=== PATIENT | female | born 1950 | race Caucasian/White ===

== ENCOUNTER → 2016-05-23 | Outpatient (CLI) | payer OTHER ==
[~2016-05-23] MED LIST: CIPR500T19 PO; HUMA100I3 SC; INSULANT SC; LISI-538 PO; ZOCO20TA PO
[2016-05-23 16:41] LABS: ALBUMIN 3.6 GM/DL (3.2-5.2); ALBUMIN/GLOBULIN RATIO 1.09 (1.00-1.93); ALKALINE PHOSPHATASE 188 U/L (45-117); ALT/SGPT 27 U/L (12-78); ANION GAP 12 MEQ/L (8-16); AST/SGOT 12 U/L (15-37); BILIRUBIN,TOTAL 0.2 MG/DL (0.2-1.0); BLOOD UREA NITROGEN 15 MG/DL (7-18); CALCIUM LEVEL 9.3 MG/DL (8.8-10.2); CARBON DIOXIDE LEVEL 25 MEQ/L (21-32); CHLORIDE LEVEL 102 MEQ/L (98-107); CHOLESTEROL LEVEL 183 MG/DL (<200); CREATININE FOR GFR 0.94 MG/DL (0.55-1.02); GLOMERULAR FILTRATION RATE > 60.0 (>45); POTASSIUM SERUM 4.3 MEQ/L (3.5-5.1); SODIUM LEVEL 139 MEQ/L (136-145); TOTAL PROTEIN 6.9 GM/DL (6.4-8.2); TRIGLYCERIDES LEVEL 465 MG/DL (<150)
[2016-05-23 16:44] LABS: GLUCOSE, FASTING 415 MG/DL (80-110)
[2016-05-23 19:25] LABS: BASO # 0.2 K/mm3 (0.0-0.2); BASO % 1.6 % (0.0-1.0); EOS # 0.3 K/mm3 (0.0-0.50); EOS % 2.3 % (0.0-3.0); LARGE UNSTAINED CELL # 0.1 K/mm3 (0.0-0.4); LARGE UNSTAINED CELL % 0.7 % (0.0-4.0); LYMPH % 16.8 % (24.0-44.0); MEAN CORPUSCULAR HEMOGLOBIN 29.4 pg (27.0-33.0); MEAN CORPUSCULAR HGB CONC 31.9 g/dl (32.0-36.5); MEAN CORPUSCULAR VOLUME 92.3 fl (80.0-96.0); MONO # 0.6 K/mm3 (0.0-0.8); MONO % 5.4 % (0.0-5.0); NEUTROPHILS # 8.2 K/mm3 (1.8-7.7); NEUTROPHILS % 73.1 % (36.0-66.0); PLATELET COUNT, AUTOMATED 263 k/mm3 (150-450); RED CELL DISTRIBUTION WIDTH 14.4 % (11.5-14.5); WHITE BLOOD COUNT 11.3 K/mm3 (4.0-10.0)
== END ==
LOC: M WUC 14:59
PROVIDERS: ATTEND Physician Assistant Medical
DX: E11.9 Type 2 diabetes mellitus without complications (principal)

== ENCOUNTER 2016-07-22 15:42 | Emergency (ER) | payer OTHER ==
[~2016-07-22] VITALS: Ht 149.9 cm; Wt 82.1 kg
[2016-07-22] MEDS ORDERED: LEVO25TA5 PO (15:57)
[2016-07-22] MEDS ORDERED: SERT50TA PO (15:57)
[2016-07-22] MEDS ORDERED: PERC5TAB6 PO (15:57)
[2016-07-22] MEDS ORDERED: LISI2.5T3 PO (15:57)
[2016-07-22] MEDS ORDERED: OXYB5TA PO (15:57)
[2016-07-22] MEDS ORDERED: METF500T PO (15:57)
[2016-07-22] MEDS ORDERED: TOUJ1.2I SC (15:57)
[2016-07-22 17:17] VITALS: BP 139/67
[2016-07-22] MEDS ORDERED: AZEL0.1S3 (17:19)
[2016-07-22] MEDS ORDERED: TESS100C PO (17:20)
== END 2016-07-22 17:31 | disposition home or self-care (01) ==
LOC: M ED 16:49
DX: B34.9 Viral infection, unspecified (principal); E11.65 Type 2 diabetes mellitus with hyperglycemia; Z79.4 Long term (current) use of insulin

== ENCOUNTER 2016-07-26 13:19 | Inpatient (IN) | payer OTHER ==
[~2016-07-26] VITALS: Ht 149.9 cm; Wt 79.6 kg
[~2016-07-26 13:19] MED LIST changes: +AZEL0.1S3; +LEVO25TA5 PO; +LISI2.5T3 PO; +METF500T PO; +OXYB5TA PO; +PERC5TAB6 PO; +SERT50TA PO; +TESS100C PO; +TOUJ1.2I SC
[2016-07-26] MEDS ORDERED: NS 1,000 ML IV ONE ×2 (13:45→17:00)
[2016-07-26] MEDS: IPRATROPIUM 0.5MG/ALBUTEROL 2.5MG INH SOL UD 3ML (DUONEB)(J7620) NEB SCH ×4 (14:22→21:02)
[2016-07-26 14:25] LABS: VENOUS BASE EXCESS -4.7 (-2.0-2.0); VENOUS O2 SATURATION 91.7 % (60.0-80.0); VENOUS PARTIAL PRESSURE CO2 46.6 mmHg (38.0-50.0); VENOUS PARTIAL PRESSURE O2 79.6 mmHg (30.0-50.0); VENOUS STANDARD HCO3 20.5 MEQ/L; VENOUS TOTAL CO2 23.5 MEQ/L (24.0-28.0)
[2016-07-26 14:27] LABS: BASO # 0.1 K/mm3 (0.0-0.2); BASO % 0.5 % (0.0-1.0); EOS # 0.1 K/mm3 (0.0-0.50); EOS % 0.4 % (0.0-3.0); LARGE UNSTAINED CELL # 0.5 K/mm3 (0.0-0.4); LYMPH % 1.8 % (24.0-44.0); MEAN CORPUSCULAR HEMOGLOBIN 29.1 pg (27.0-33.0); MEAN CORPUSCULAR HGB CONC 32.4 g/dl (32.0-36.5); MEAN CORPUSCULAR VOLUME 89.8 fl (80.0-96.0); MONO # 1.1 K/mm3 (0.0-0.8); NEUTROPHILS # 24.7 K/mm3 (1.8-7.7); NEUTROPHILS % 91.3 % (36.0-66.0); PLATELET COUNT, AUTOMATED 218 k/mm3 (150-450); RED CELL DISTRIBUTION WIDTH 13.7 % (11.5-14.5)
--- NOTE | 2016-07-26 14:47 | REP ---
Clinical: Diabetic ketoacidosis . Comparison: 09/11/2013 . Findings: The mediastinum and cardiac silhouette are stable and within normal limits for portable technique. The lung covington are clear without acute consolidation, effusion, or pneumothorax. Skeletal structures are intact. Impression: Normal portable chest x-ray Signed by Magdiel Brody MD 07/26/2016 02:39 P
[2016-07-26] MEDS ORDERED: HumuLIN R (REGULAR) INSULIN (NovoLIN R) **100U/ML** PER UNIT IV ONE (15:00)
[2016-07-26] MEDS ORDERED: cefTRIAXone SOD 1 GM in D5W MINI-BAG PLUS 50 ML IV ONE (15:30)
[2016-07-26 15:42] LABS: CALCIUM LEVEL 8.8 MG/DL (8.8-10.2); CREATININE FOR GFR 2.39 MG/DL (0.55-1.02); GLOMERULAR FILTRATION RATE 21.7 (>45); POTASSIUM SERUM 4.2 MEQ/L (3.5-5.1)
[2016-07-26] MEDS ORDERED: IPRATROPIUM 0.5MG/ALBUTEROL 2.5MG INH SOL UD 3ML (DUONEB)(J7620) NEB PRN (16:45)
[2016-07-26] MEDS ORDERED: GLUCAGON FOR INJ 1 MG VIAL (J1610) SC PRN (16:45)
[2016-07-26] MEDS ORDERED: ONDANSETRON 4MG/2ML VIAL (J2405) IV PRN (16:45)
[2016-07-26] MEDS ORDERED: DEXTROSE 50% 50 ML SYRINGE IV PRN (16:45)
[2016-07-26] MEDS ORDERED: ACETAMINOPHEN TAB 650MG DOSE (2X325MG) PO PRN (16:45)
[2016-07-26] MEDS ORDERED: HEPARIN SOD (PORCINE) 5000 UNITS/ML VIAL SC SCH (16:45)
[2016-07-26] MEDS ORDERED: GLUCOSE 4 GM CHEW TABLET PO PRN (16:45)
--- NOTE | 2016-07-26 17:17 | HPEPDOC ---
General Date of Admission Jul 26, 2016 at 16:36 Chief Complaint The patient is a 66-year-old female admitted with a reason for visit of Hyperglycemia. History of Present Illness 66-year-old female with past Meckel should hypertension, dyslipidemia, diabetes mellitus, bladder cancer, chronic urinary retention requiring straight catheterization, and ?COPD presented to the ER with a chief complaint of increasing shortness of breath and generalized fatigue over the last 3-4 days. The patient states that during this time she has had an increase in shortness of breath, associated with a cough productive of yellowish sputum, and dyspnea at rest. In addition, the patient states that she has felt increasing generalized weakness and fatigue. She notes that she has been taking all of her medications as previously prescribed. Upon checking her blood sugar level at home, the patient notes that he was noted to be in the 400s. She presents to the ER for further evaluation. She denies any lightheadedness, dizziness, chest pain, shortness of breath, palpitations, abdominal pain, or any nausea/vomiting/ diarrhea. In the ER, the patient was noted to have a blood sugar level of 458. In addition , she was also noted to have a white blood cell count of 27,000, and an acute kidney injury. A urinalysis was noted to be suggestive of an underlying urinary tract infection. The patient will be admitted under the service of the [facility] physician group for further evaluation and management. Home Medications Scheduled (Kj Delaney) 300 Unit/Ml Inj 44 UNIT SC DAILY (Reported) Azelastine Hydrochloride (Azelastine HCl) 137 Mcg/[place] Spr 2 SPRAY NA BID Benzonatate (Tessalon Perles) 100 Mg Cap 100 MG PO Q8H Insulin Human Lispro (Humalog) 100 Unit/Ml Inj 1 DOSE SC AC (Reported) Levothyroxine Sodium (Synthroid) 25 Mcg Tab 25 MCG PO DAILY (Reported) Lisinopril (Lisinopril) 2.5 Mg Tab 2.5 MG PO DAILY (Reported) Metformin Hydrochloride (Metformin HCl) 500 Mg Tab 500 MG PO BIDWM (Reported) Oxybutynin Chloride (Oxybutynin Chloride) 5 Mg Tab 5 MG PO BID (Reported) Oxycodone/Acetaminophen (Percocet 5-325 mg) 1 Tab Tab 1 TAB PO TID (Reported) Sertraline Hcl (Sertraline HCl) 50 Mg Tab 50 MG PO DAILY (Reported) Simvastatin (Zocor) 20 Mg Tab 20 MG PO QHS (Reported) Allergies Coded Allergies: No Known Allergies (Unverified , 09/16/13) Past Medical History Medical History As noted in HPI. Surgical History CHOLECYSTECTOMY/APPENDECTOMY 1990S BENIGN BREAST TUMOR REMOVAL 1974 TURBT 09/16/2013 CYSTOSCOPY 12/21/13 HYSTEROTOMY TOTAL 12/2014 Family History FATHER: 80 YRS, EMPHYSEMA, DM2 MOTHER: 80 YRS, ALZHEIMER Social History * Smoker: other (has smoked 1 pack per day for greater than 30 years) Alcohol: Denies Drugs: denies Unemployed, lives at home with her sister, and one cat and one dog. Does not require any assistance devices for ambulation Review of Symptoms Other systems 10 point review of systems negative unless otherwise specified in HPI. Physical Examination General Exam: Positive: Alert, Cooperative, No Acute Distress ENT Exam: Positive: Atraumatic, Mucous membr. moist/pink Neck Exam: Negative: JVD Chest Exam: Positive: Diminished, Rhonchi, Negative: Rales Heart Exam: Positive: Normal S1, Normal S2, Rate Normal Abdomen Exam: Positive: Soft, Negative: Tenderness Extremity Exam: Negative: Swelling, Tenderness Vital Signs As noted in the EMR. Laboratory Data Labs 24H Laboratory Tests 2 07/26/16 14:13: White Blood Count 27.0H, Red Blood Count 4.82, Hemoglobin 14.0, Hematocrit 43.3 , Mean Corpuscular Volume 89.8, Mean Corpuscular Hemoglobin 29.1, Mean Corpuscular Hemoglobin Concent 32.4, Red Cell Distribution Width 13.7, Platelet Count 218, Neutrophils (%) (Auto) 91.3H, Lymphocytes (%) (Auto) 1.8L, Monocytes (%) (Auto) 4.0, Eosinophils (%) (Auto) 0.4, Basophils (%) (Auto) 0.5, Neutrophils # (Auto) 24.7H, Lymphocytes # (Auto) 1.0L, Monocytes # (Auto) 1.1H, Eosinophils # (Auto) 0.1, Basophils # (Auto) 0.1, Blood Gas Bicarbonate Standard 20.5, Estimated Mean Plasma Glucose 246H, Hemoglobin A1c 10.2H, Lactic Acid Level 2.2*H, Large Unclassified Cells # 0.5H, Large Unclassified Cells % 2.0, Venous Blood Base Excess -4.7L, Venous Blood pH 7.293L, Venous Blood Partial Pressure CO2 46.6, Venous Blood Partial Pressure O2 79.6H, Venous Blood Total Carbon Dioxide 23.5L, Venous Blood HCO3 22.1L, Venous Blood Oxygen Saturation 91.7H 07/26/16 14:49: Anion Gap 15, B-Hydroxybutyrate 13.10H, Blood Urea Nitrogen 61H, Creatinine 2.39H, Sodium Level 130L, Potassium Level 4.2, Chloride Level 95L, Carbon Dioxide Level 20L, Calcium Level 8.8, Glomerular Filtration Rate 21.7L 07/26/16 14:50: Bedside Glucose (Misc Panel) 454H 07/26/16 15:33: Urine Amorphous Sediment SMALLH, Urine Appearance HAZY, Urine Color YELLOW, Urine pH 6.0, Urine Specific [place] 1.005, Urine Protein 1+H, Urine Glucose (UA ) 3+H, Urine Ketones NEGATIVE, Urine Urobilinogen 0.2, Urine Bilirubin NEGATIVE , Urine Leukocyte Esterase 3+H, Urine Bacteria (Auto) 3+H, Urine Blood 2+H, Urine Calcium Carbonate Cryst(Auto) , Urine Calcium Oxalate Cryst (Auto) , Urine Calcium Phosphate Saba (Auto) , Urine Cellular Casts , Urine Cystine Crystals , Urine Granular Casts (Auto) , Urine Hyaline Casts (Auto) 0, Urine Leucine Crystals , Urine Mucus (Auto) , Urine Nitrite POSITIVE, Urine Oval Fat Bodies (Auto) , Urine RBC (Auto) 4H, Urine Renal Epithelial Cells , Urine Sperm (Auto) , Urine Squamous Epithelial Cells 0, Urine Transitional Epithelial Cells , Urine Trichomonas (Auto) , Urine Triple Phosphate Cryst (Auto) , Urine Tyrosine Crystals , Urine Uric Acid Crystals (Auto) , Urine WBC (Auto) 56H, Urine Waxy Casts (Auto) , Urine Yeast-Like Cells (Auto) 07/26/16 16:23: Bedside Glucose (Misc Panel) 358H CBC/BMP Laboratory Tests 07/26/16 14:13 Red Blood Count 4.82, Mean Corpuscular Volume 89.8, Mean Corpuscular Hemoglobin 29.1, Mean Corpuscular Hemoglobin Concent 32.4, Red Cell Distribution Width 13.7 , Neutrophils (%) (Auto) 91.3 H, Lymphocytes (%) (Auto) 1.8 L, Monocytes (%) ( Auto) 4.0, Eosinophils (%) (Auto) 0.4, Basophils (%) (Auto) 0.5, Neutrophils # ( Auto) 24.7 H, Lymphocytes # (Auto) 1.0 L, Monocytes # (Auto) 1.1 H, Eosinophils # (Auto) 0.1, Basophils # (Auto) 0.1 07/26/16 14:49 Calcium Level 8.8 Microbiology Microbiology 07/26/16 Blood Culture, Received Pending 07/26/16 Blood Culture, Received Pending 07/26/16 Influenza Virus Type A Antigen - Final, Complete 07/26/16 Influenza Virus Type B Antigen - Final, Complete 07/26/16 Urine Culture, Received Pending Plan / VTE VTE Prophylaxis Ordered?: Yes Plan / Urinary Catheter Reason for insertion/continuin: Acute obstruct/retention Plan Plan History of diabetes mellitus, Elevated glucose levels secondary to underlying UTI Blood sugar level noted to be 458 in the ER Anion gap within normal limits, urine studies negative for ketones IV fluid hydration ordered We will continue the patient on insulin sliding scale, and administer her long- acting Levemir now We'll follow up with fingersticks to ensure that the patient's blood sugar levels remain under control Clear liquid diet for now-by mouth intake of fluids encouraged Acute kidney injury likely secondary to intravascular volume depletion from hyperglycemia Serum creatinine noted to be 2.39 (baseline around 1.0) Hold nephrotoxins IV fluid hydration Repeat BMP in the a.m. Shortness of breath likely, with hypoxia secondary to viral upper respiratory tract infection Chest x-ray with no acute findings Given the patient's history of tobacco abuse, I do wonder whether she has underlying COPD, and this is a presenting exacerbation Respiratory panel ordered At this time I will start her on nebulizer and inhaler therapy I would recommend a follow-up as an outpatient for PFTs I am reluctant to give the patient steroids at this time for a possible COPD exacerbation from viral URI given the patient's hyperglycemia We will down titrate the supplemental oxygen as tolerated (patient currently on 2 L of oxygen via nasal cannula) Urinary tract infection Urinalysis suggestive of UTI Blood cultures, urine culture ordered Patient started on Rocephin Will follow-up on culture results Leukocytosis, lactic acidosis Likely secondary to urinary tract infection, volume depletion Cultures pending, patient started on antibiotics, and IV fluid hydration We'll follow up on white blood cell count, and lactic acid level Dyslipidemia Continue statin History of bladder cancer in [address] Anderson as an outpatient History of chronic urinary retention requiring straight catheterization This may be the source of the patient's urinary tract infection Given the patient's aggressive IV fluid hydration and need to monitor output we will insert Choudhary catheter Hypothyroidism Continue levothyroxine DVT prophylaxis-heparin subcutaneous The patient will be admitted under the service of the [facility] physicians. SARAHI THAYER MD Jul 26, 2016 17:17
[2016-07-26] MEDS: HumaLOG INSULIN (NovoLOG) PER UNIT SC SCH ×2 (17:30→19:57)
[2016-07-26 19:15] VITALS: BP 145/71
[2016-07-26] MEDS: LEVEMIR (INSULIN DETEMIR) 1 UNITS/0.01ML SC SCH (19:58)
[2016-07-26] MEDS: NS 1,000 ML IV SCH (20:06)
--- NOTE | 2016-07-26 21:07 | ECGEPIP ---
Stationary ECG Study [facility] - ED Test Date: 2016-07-26 Pat Name: LYNDSEY GALVIN Department: Room: [place] [address] Gender: F Net Programmer Analyst: ct : 1950 Requested By: ADRIANE KAY PA-C. Order Number: [id number] Reading MD: Laquita Easley Measurements Intervals [place] Rate: 93 P: 70 WI: 144 QRS: 18 QRSD: 94 T: -2 QT: 319 QTc: 398 Interpretive Statements SINUS RHYTHM NSTTW ABNORMALITY INCREASED RATE 09/11/13 Electronically Signed On 07-26-2016 21:06:37 EDT by Laquita Easley
[2016-07-26] MEDS: AZELASTINE 137MCG NASAL SPY 30 ML (ASTELIN) SCH (23:00)
[2016-07-26] MEDS: HEPARIN SOD (PORCINE) 5000 UNITS/ML VIAL SC SCH (23:01)
[2016-07-26] MEDS: BENZONATATE 100 MG CAP PO SCH (23:02)
[2016-07-26] MEDS: SIMVASTATIN 20 MG TAB PO SCH (23:02)
[2016-07-26 23:15] VITALS: BP 142/74
[2016-07-27] MEDS: IPRATROPIUM 0.5MG/ALBUTEROL 2.5MG INH SOL UD 3ML (DUONEB)(J7620) NEB SCH ×6 (01:30→19:52)
[2016-07-27 04:00] VITALS: BP 137/92
[2016-07-27] MEDS: NS 1,000 ML IV SCH ×4 (04:02→20:10)
[2016-07-27] MEDS: PERCOCET 5MG/325MG TAB PO PRN ×2 (04:03→20:12)
[2016-07-27 05:30] LABS: MEAN CORPUSCULAR HEMOGLOBIN 29.1 pg (27.0-33.0); MEAN CORPUSCULAR HGB CONC 32.5 g/dl (32.0-36.5); MEAN CORPUSCULAR VOLUME 89.5 fl (80.0-96.0); RED CELL DISTRIBUTION WIDTH 13.8 % (11.5-14.5); WHITE BLOOD COUNT 29.8 K/mm3 (4.0-10.0)
[2016-07-27 05:43] LABS: ALBUMIN 1.6 GM/DL (3.2-5.2); ALBUMIN/GLOBULIN RATIO 0.36 (1.00-1.93); BILIRUBIN,TOTAL 0.9 MG/DL (0.2-1.0); CALCIUM LEVEL 8.2 MG/DL (8.8-10.2); CREATININE FOR GFR 2.53 MG/DL (0.55-1.02); GLOMERULAR FILTRATION RATE 20.4 (>45); MAGNESIUM LEVEL 2.5 MG/DL (1.8-2.4); POTASSIUM SERUM 3.5 MEQ/L (3.5-5.1); TOTAL PROTEIN 6.1 GM/DL (6.4-8.2)
[2016-07-27] MEDS: HEPARIN SOD (PORCINE) 5000 UNITS/ML VIAL SC SCH ×3 (07:04→20:16)
[2016-07-27] MEDS: LEVOTHYROXINE 0.025 MG TAB (25 MCG) PO SCH (07:04)
[2016-07-27] MEDS: BENZONATATE 100 MG CAP PO SCH ×3 (07:04→20:15)
[2016-07-27 08:00] VITALS: BP 157/75
[2016-07-27] MEDS: HumaLOG INSULIN (NovoLOG) PER UNIT SC SCH ×4 (08:31→21:00)
[2016-07-27] MEDS: cefTRIAXone SOD 1 GM in D5W MINI-BAG PLUS 50 ML IV SCH (08:31)
[2016-07-27] MEDS: SERTRALINE HCL 50 MG TAB PO SCH (08:32)
--- NOTE | 2016-07-27 09:03 | IPNPDOC ---
Subjective Date Seen The patient was seen on 07/27/16. Subjective Chief Complaint/HPI The patient is a 66-year-old female admitted with a reason for visit of Hyperglycemia. Events since last encounter Patient reports mid back pain, cough and fatigue with SOB. Constitutional: Denies: Chills, Fever Pulmonary: Reports: Cough, Dyspnea Cardiovascular: Denies: Chest Pain, Orthopnea, Palpitations Gastrointestinal: Denies: Abdominal Pain, Constipation, Diarrhea, Nausea, Vomiting Genitourinary: Reports: Other Symptoms (Has neurogenic bladder requiring straight cath - Nurse reports milky brown urine) Musculoskeletal: Reports: Back Pain Objective Physical Examination General Exam: Positive: Other (Awake but seems groggy, HAN) ENT Exam: Positive: Atraumatic, Mucous membr. moist/pink Neck Exam: Negative: JVD Chest Exam: Positive: Diminished, Wheezing (Diffuse wheezes BL), Negative: Rales Heart Exam: Positive: Normal S1, Normal S2, Rate Normal, Negative: Murmurs Abdomen Exam: Positive: Normal bowel sounds, Soft, Negative: Tenderness Extremity Exam: Positive: Swelling, Negative: Edema Assessment /Plan Problems (1) Acute renal failure Status: Acute Problem Text: continue IVF hydration Get Renal US (2) UTI (urinary tract infection) Status: Acute Problem Text: U/C pending continue Rocephin - (last UTI 02/2016 - grew Klebsiella Oxitica) (3) Acute bronchitis Status: Acute Problem Text: Oxygen saturations are ok on 2 liters NC May be able to start Prednisone if blood sugars remain down with Levemir and SSI. (4) Diabetes mellitus with hyperglycemia Status: Acute Response to Treatment: Improving Problem Text: continue Levemir and SSI Blood sugars down to 200s (5) Urinary retention Status: Chronic Problem Text: Normally straight caths May consider estrella cath for now until renal function improves and UTI clears (6) Tobacco abuse Status: Chronic Problem Text: smokes 1 ppd (7) H/O primary malignant neoplasm of urinary bladder Status: Acute Plan/VTE VTE Prophylaxis Ordered?: Yes (SQ heparin) Plan/Urinary Catheter Reason for insertion/continuin: Acute obstruct/retention VS, I&O, 24H, Fishbone Vital Signs/I&O Vital Signs Date Time Temp Pulse Resp B/P Pulse Ox O2 Delivery O2 Flow Rate FiO2 07/27/16 05:29 80 07/27/16 04:45 16 07/27/16 04:00 98.3 137/92 98 Nasal Cannula 2.0 I&O- Last 24 Hours up to 6 AM 07/27/16 06:00 Intake Total 2510 ml Output Total 1825 ml Balance 685 ml Laboratory Data 24H LABS Laboratory Tests 2 07/26/16 14:13: White Blood Count 27.0H, Red Blood Count 4.82, Hemoglobin 14.0, Hematocrit 43.3 , Mean Corpuscular Volume 89.8, Mean Corpuscular Hemoglobin 29.1, Mean Corpuscular Hemoglobin Concent 32.4, Red Cell Distribution Width 13.7, Platelet Count 218, Neutrophils (%) (Auto) 91.3H, Lymphocytes (%) (Auto) 1.8L, Monocytes (%) (Auto) 4.0, Eosinophils (%) (Auto) 0.4, Basophils (%) (Auto) 0.5, Neutrophils # (Auto) 24.7H, Lymphocytes # (Auto) 1.0L, Monocytes # (Auto) 1.1H, Eosinophils # (Auto) 0.1, Basophils # (Auto) 0.1, Blood Gas Bicarbonate Standard 20.5, Estimated Mean Plasma Glucose 246H, Hemoglobin A1c 10.2H, Lactic Acid Level 2.2*H, Large Unclassified Cells # 0.5H, Large Unclassified Cells % 2.0, Venous Blood Base Excess -4.7L, Venous Blood pH 7.293L, Venous Blood Partial Pressure CO2 46.6, Venous Blood Partial Pressure O2 79.6H, Venous Blood Total Carbon Dioxide 23.5L, Venous Blood HCO3 22.1L, Venous Blood Oxygen Saturation 91.7H 07/26/16 14:49: Anion Gap 15, B-Hydroxybutyrate 13.10H, Blood Urea Nitrogen 61H, Creatinine 2.39H, Sodium Level 130L, Potassium Level 4.2, Chloride Level 95L, Carbon Dioxide Level 20L, Calcium Level 8.8, Glomerular Filtration Rate 21.7L 07/26/16 14:50: Bedside Glucose (Misc Panel) 454H 07/26/16 15:33: Urine Amorphous Sediment SMALLH, Urine Appearance HAZY, Urine Color YELLOW, Urine pH 6.0, Urine Specific [place] 1.005, Urine Protein 1+H, Urine Glucose (UA ) 3+H, Urine Ketones NEGATIVE, Urine Urobilinogen 0.2, Urine Bilirubin NEGATIVE , Urine Leukocyte Esterase 3+H, Urine Bacteria (Auto) 3+H, Urine Blood 2+H, Urine Calcium Carbonate Cryst(Auto) , Urine Calcium Oxalate Cryst (Auto) , Urine Calcium Phosphate [place] (Auto) , Urine Cellular Casts , Urine Cystine Crystals , Urine Granular Casts (Auto) , Urine Hyaline Casts (Auto) 0, Urine Leucine Crystals , Urine Mucus (Auto) , Urine Nitrite POSITIVE, Urine Oval Fat Bodies (Auto) , Urine RBC (Auto) 4H, Urine Renal Epithelial Cells , Urine Sperm (Auto) , Urine Squamous Epithelial Cells 0, Urine Transitional Epithelial Cells , Urine Trichomonas (Auto) , Urine Triple Phosphate Cryst (Auto) , Urine Tyrosine Crystals , Urine Uric Acid Crystals (Auto) , Urine WBC (Auto) 56H, Urine Waxy Casts (Auto) , Urine Yeast-Like Cells (Auto) 07/26/16 16:23: Bedside Glucose (Misc Panel) 358H 07/26/16 17:23: Bedside Glucose (Misc Panel) 399H 07/26/16 19:06: Lactic Acid Followup at 4 Hours 1.4 07/26/16 19:33: Bedside Glucose (Misc Panel) 381H 07/27/16 05:17: Blood Urea Nitrogen 57H, Creatinine 2.53H, Sodium Level 136, Potassium Level 3.5 , Chloride Level 107, Carbon Dioxide Level 19L, Calcium Level 8.2L, Aspartate Amino Transf (AST/SGOT) 35, Alanine Aminotransferase (ALT/SGPT) 22, Alkaline Phosphatase 220H, Total Bilirubin 0.9, Total Protein 6.1L, Albumin 1.6L, Albumin /Globulin Ratio 0.36L, Anion Gap 10, Glomerular Filtration Rate 20.4L, Magnesium Level 2.5H 07/27/16 05:18: Lactic Acid Level 0.8 CBC/BMP Laboratory Tests 07/26/16 14:13 Red Blood Count 4.82, Mean Corpuscular Volume 89.8, Mean Corpuscular Hemoglobin 29.1, Mean Corpuscular Hemoglobin Concent 32.4, Red Cell Distribution Width 13.7 , Neutrophils (%) (Auto) 91.3 H, Lymphocytes (%) (Auto) 1.8 L, Monocytes (%) ( Auto) 4.0, Eosinophils (%) (Auto) 0.4, Basophils (%) (Auto) 0.5, Neutrophils # ( Auto) 24.7 H, Lymphocytes # (Auto) 1.0 L, Monocytes # (Auto) 1.1 H, Eosinophils # (Auto) 0.1, Basophils # (Auto) 0.1 07/26/16 14:49 Calcium Level 8.8 07/27/16 05:17 Red Blood Count 4.19, Mean Corpuscular Volume 89.5, Mean Corpuscular Hemoglobin 29.1, Mean Corpuscular Hemoglobin Concent 32.5, Red Cell Distribution Width 13.8 , Calcium Level 8.2 L, Aspartate Amino Transf (AST/SGOT) 35, Alanine Aminotransferase (ALT/SGPT) 22, Alkaline Phosphatase 220 H, Total Bilirubin 0.9 , Total Protein 6.1 L, Albumin 1.6 L Microbiology Microbiology 07/26/16 Blood Culture, Received Pending 07/26/16 Blood Culture, Received Pending 07/26/16 Influenza Virus Type A Antigen - Final, Complete 07/26/16 Influenza Virus Type B Antigen - Final, Complete 07/26/16 Urine Culture, Received Pending NEEL YANCEY PA-C Jul 27, 2016 09:03
[2016-07-27] MEDS: MIRALAX *UNIT DOSE* 17GM PACKET PO SCH (10:48)
[2016-07-27] MEDS: AZELASTINE 137MCG NASAL SPY 30 ML (ASTELIN) SCH ×2 (10:48→21:00)
[2016-07-27 12:00] VITALS: BP 129/69
--- NOTE | 2016-07-27 12:08 | REP ---
Clinical: Acute renal failure. Findings: Bilateral kidneys are normal in contour, size, echogenicity and reniform shape without hydronephrosis, nephrolithiasis, cystic or renal mass lesion. Right kidney measures 13.3 x 6.2 x 6.5 cm. Left kidney measures 13.0 x 7.2 x 7.2 cm. Bilateral renovascular calcifications suggested. Bladder is normal in appearance currently measuring 11.7 x 9.6 x 8.5 cm. Impression: Renovascular calcifications. No hydronephrosis. Signed by Magdiel Brody MD 07/27/2016 11:59 A
[2016-07-27 16:00] VITALS: BP 132/72
[2016-07-27 18:00] VITALS: BP 193/86
[2016-07-27] MEDS: SIMVASTATIN 20 MG TAB PO SCH (20:10)
[2016-07-27] MEDS: LEVEMIR (INSULIN DETEMIR) 1 UNITS/0.01ML SC SCH (20:11)
[2016-07-27 22:00] VITALS: BP 142/82
[2016-07-28] MEDS: PERCOCET 5MG/325MG TAB PO PRN ×4 (01:26→23:00)
[2016-07-28] MEDS: NS 1,000 ML IV SCH ×2 (01:26→07:54)
[2016-07-28] MEDS: IPRATROPIUM 0.5MG/ALBUTEROL 2.5MG INH SOL UD 3ML (DUONEB)(J7620) NEB SCH ×7 (04:00→23:37)
[2016-07-28] MEDS: LEVOTHYROXINE 0.025 MG TAB (25 MCG) PO SCH (05:34)
[2016-07-28] MEDS: HEPARIN SOD (PORCINE) 5000 UNITS/ML VIAL SC SCH ×3 (05:34→20:44)
[2016-07-28] MEDS: BENZONATATE 100 MG CAP PO SCH ×3 (05:34→20:43)
[2016-07-28 06:00] VITALS: BP 132/80
[2016-07-28 06:28] LABS: MEAN CORPUSCULAR HEMOGLOBIN 28.4 pg (27.0-33.0); MEAN CORPUSCULAR HGB CONC 32.3 g/dl (32.0-36.5); RED CELL DISTRIBUTION WIDTH 13.9 % (11.5-14.5)
[2016-07-28 06:33] LABS: WHITE BLOOD COUNT 31.3 K/mm3 (4.0-10.0)
[2016-07-28 06:41] LABS: ALBUMIN 1.5 GM/DL (3.2-5.2); ALBUMIN/GLOBULIN RATIO 0.34 (1.00-1.93); BILIRUBIN,TOTAL 0.6 MG/DL (0.2-1.0); CALCIUM LEVEL 7.7 MG/DL (8.8-10.2); CREATININE FOR GFR 3.03 MG/DL (0.55-1.02); GLOMERULAR FILTRATION RATE 16.5 (>45); POTASSIUM SERUM 3.8 MEQ/L (3.5-5.1); TOTAL PROTEIN 5.9 GM/DL (6.4-8.2)
[2016-07-28] MEDS: cefTRIAXone SOD 1 GM in D5W MINI-BAG PLUS 50 ML IV SCH (07:52)
[2016-07-28] MEDS: MIRALAX *UNIT DOSE* 17GM PACKET PO SCH (07:53)
[2016-07-28] MEDS: SERTRALINE HCL 50 MG TAB PO SCH (07:53)
[2016-07-28] MEDS: HumaLOG INSULIN (NovoLOG) PER UNIT SC SCH ×4 (07:54→20:45)
[2016-07-28] MEDS: AZELASTINE 137MCG NASAL SPY 30 ML (ASTELIN) SCH ×2 (07:54→20:46)
[2016-07-28] MEDS: KCL 20MEQ IN 0.45NS 1000ML 1,000 ML IV SCH ×2 (10:45→20:43)
--- NOTE | 2016-07-28 10:59 | IPN ---
DATE: 07/28/2016 Yessica feels much better. Asking to have her Choudhary catheter taken out. She is showing improvement of her severe hyperglycemia, but her renal functions are deteriorating further. She was admitted with severe hyperglycemia and acute renal failure. Her creatine is up to 3, blood sugars have come under good control. She would like her catheter out. Says she self catheterizes at home. We did an ultrasound that showed no hydronephrosis. She has a prominent tremor, but she says she has had that "since I was child." This was worse on admission when she felt more ill. She says she is back to her baseline, mild tremor now. Blood pressure (BP) 132/80, pulse 79, respiratory rate 20, 97% oxygen saturation. GENERAL APPEARANCE: She is resting comfortable in no distress. No jugular venous distension (JVD). Lungs are clear. Heart: Regular rhythm. Abdomen: Soft, nontender, no peripheral edema. Urine is clear, was quite cloudy earlier in the admission. LABORATORY: Sodium 143, potassium 3.8, BUN 54, creatine 3, glucose 108, white count 31,000, hemoglobin 11.8, platelets 290. IMPRESSION: 1. Acute renal failure. Renal function continues to decline. This is related to her severe hyperglycemia and urinary tract infection. Will follow this daily. Adjust dose of medicines, baseline renal function. Avoid nephrotoxic agents. If renal function is worse tomorrow, will consult nephrology. 2. E. Coli urinary tract infection (UTI). She has an E. Coli urinary tract infection. She was given a dose of Rocephin on admission. I thought this was being ordered daily, but was just given one dose in the emergency room. This has been ordered daily starting today. Sensitivities were obtained and is araujo sensitive E. Coli. 3. Coronavirus respiratory infection. This was isolated from a respiratory panel. She is not having any shortness of breath or wheezing. Interestingly, her twin sister who is also an inpatient at [facility] has isolated the same coronovirus, as well as the same araujo-sensitive E. Coli found from her urine. 4. Tremor. This is at its baseline. 5. Diabetes with hyperglycemia. Blood sugars improved. She is on Levemir and sliding scale. She is on an enforced diet. I might have to reduce her Levemir for blood sugars getting lower. 6. History of urinary retention. She would like to resume her intermittent self-catheterization. There is no evidence of hydronephrosis. So, will allow her to continue to do this. 7. Tobacco abuse. Support smoking cessation has been discussed.
[2016-07-28 14:00] VITALS: BP 134/80
[2016-07-28] MEDS: SIMVASTATIN 20 MG TAB PO SCH (20:43)
[2016-07-28] MEDS: LEVEMIR (INSULIN DETEMIR) 1 UNITS/0.01ML SC SCH (20:45)
[2016-07-28 22:00] VITALS: BP 155/81
[2016-07-29] MEDS: IPRATROPIUM 0.5MG/ALBUTEROL 2.5MG INH SOL UD 3ML (DUONEB)(J7620) NEB SCH ×6 (03:17→23:56)
[2016-07-29] MEDS: PERCOCET 5MG/325MG TAB PO PRN ×4 (04:05→22:47)
[2016-07-29] MEDS: HEPARIN SOD (PORCINE) 5000 UNITS/ML VIAL SC SCH ×3 (05:20→20:58)
[2016-07-29] MEDS: LEVOTHYROXINE 0.025 MG TAB (25 MCG) PO SCH (05:20)
[2016-07-29] MEDS: BENZONATATE 100 MG CAP PO SCH ×3 (05:20→20:57)
[2016-07-29] MEDS: KCL 20MEQ IN 0.45NS 1000ML 1,000 ML IV SCH ×3 (05:22→22:46)
[2016-07-29 06:00] VITALS: BP 155/72
[2016-07-29 06:09] LABS: MEAN CORPUSCULAR HEMOGLOBIN 28.2 pg (27.0-33.0); MEAN CORPUSCULAR HGB CONC 30.6 g/dl (32.0-36.5); MEAN CORPUSCULAR VOLUME 92.4 fl (80.0-96.0); RED CELL DISTRIBUTION WIDTH 14.5 % (11.5-14.5); WHITE BLOOD COUNT 27.1 K/mm3 (4.0-10.0)
[2016-07-29 06:28] LABS: ALBUMIN 1.6 GM/DL (3.2-5.2); ALBUMIN/GLOBULIN RATIO 0.35 (1.00-1.93); BILIRUBIN,TOTAL 0.5 MG/DL (0.2-1.0); CALCIUM LEVEL 7.9 MG/DL (8.8-10.2); CREATININE FOR GFR 3.11 MG/DL (0.55-1.02); POTASSIUM SERUM 3.9 MEQ/L (3.5-5.1); TOTAL PROTEIN 6.2 GM/DL (6.4-8.2)
[2016-07-29] MEDS: HumaLOG INSULIN (NovoLOG) PER UNIT SC SCH ×4 (07:30→20:59)
[2016-07-29] MEDS: MIRALAX *UNIT DOSE* 17GM PACKET PO SCH (09:00)
[2016-07-29] MEDS: SERTRALINE HCL 50 MG TAB PO SCH (09:49)
[2016-07-29] MEDS: cefTRIAXone SOD 1 GM in D5W MINI-BAG PLUS 50 ML IV SCH (09:51)
[2016-07-29] MEDS: AZELASTINE 137MCG NASAL SPY 30 ML (ASTELIN) SCH ×2 (09:52→20:59)
--- NOTE | 2016-07-29 13:35 | IPN ---
DATE: 07/29/2016 Yessica is seen on [facility]. She feels well. She has sepsis from urinary tract infection and acute renal failure probably secondary to that as well. She also has coronavirus with exacerbation of chronic obstructive pulmonary disease (COPD). She has chronic urinary retention and gets intermittent clean catheterization which apparently is performed by her sister at home. She was admitted with significant hyperglycemia which has improved as well. Blood sugars are fairly labile, ranging from 85-446 yesterday. PHYSICAL EXAMINATION: VITAL SIGNS: Blood pressure 155/72, pulse 50, respiratory rate 20, 98% oxygen saturation. GENERAL APPEARANCE: Resting comfortably in no distress. HEENT: Unremarkable. No jugular venous distention (JVD). LUNGS: Entirely clear. HEART: Regular rate and rhythm. ABDOMEN: Soft, nontender. No costovertebral angle (CVA) tenderness. EXTREMITIES: Trace peripheral edema. LABORATORY DATA: Blood sugars 85-446, sodium 142, potassium 3.9, BUN 52, creatinine is 3.1, glucose 84. White count is down to 27,000. IMPRESSION AND PLAN: 1. Acute renal failure. Nephrology has been consulted. We communicated about the case. We already ordered a renal ultrasound and there is no sign of obstruction. Probably secondary to severe hyperglycemia and urinary tract infection. 2. Escherichia (E) coli urinary tract infection (UTI), on IV Rocephin. She has received this daily since admission. 3. Coronavirus respiratory infection. No shortness of breath. Tolerating this well. 4. Tremor, at her baseline. 5. Hyperglycemia. She is on Levemir, sliding scale and forced diabetic diet. I was going to reduce the Levemir but she is hyperglycemic at times and she has not had any lawrence hypoglycemia either. 6. History of urinary retention with intermittent clean catheterization as an outpatient. We will continue this while here. 7. Tobacco abuse. The importance of smoking cessation again discussed.
[2016-07-29] MEDS: SIMVASTATIN 20 MG TAB PO SCH (20:58)
[2016-07-29] MEDS: LEVEMIR (INSULIN DETEMIR) 1 UNITS/0.01ML SC SCH (20:59)
[2016-07-29 22:00] VITALS: BP 172/100
[2016-07-30 02:00] VITALS: BP 162/85
[2016-07-30] MEDS: IPRATROPIUM 0.5MG/ALBUTEROL 2.5MG INH SOL UD 3ML (DUONEB)(J7620) NEB SCH ×5 (04:00→21:18)
[2016-07-30 06:00] VITALS: BP 155/72
[2016-07-30] MEDS: HEPARIN SOD (PORCINE) 5000 UNITS/ML VIAL SC SCH ×3 (06:07→21:33)
[2016-07-30] MEDS: LEVOTHYROXINE 0.025 MG TAB (25 MCG) PO SCH (06:07)
[2016-07-30] MEDS: BENZONATATE 100 MG CAP PO SCH ×3 (06:08→21:33)
[2016-07-30 06:54] LABS: MEAN CORPUSCULAR HEMOGLOBIN 29.3 pg (27.0-33.0); MEAN CORPUSCULAR HGB CONC 32.4 g/dl (32.0-36.5); MEAN CORPUSCULAR VOLUME 90.4 fl (80.0-96.0); RED CELL DISTRIBUTION WIDTH 14.4 % (11.5-14.5); WHITE BLOOD COUNT 24.7 K/mm3 (4.0-10.0)
[2016-07-30 07:01] LABS: ALBUMIN 1.9 GM/DL (3.2-5.2); ALBUMIN/GLOBULIN RATIO 0.37 (1.00-1.93); BILIRUBIN,TOTAL 0.7 MG/DL (0.2-1.0); CALCIUM LEVEL 8.5 MG/DL (8.8-10.2); CREATININE FOR GFR 2.84 MG/DL (0.55-1.02); GLOMERULAR FILTRATION RATE 17.8 (>45); POTASSIUM SERUM 4.1 MEQ/L (3.5-5.1)
[2016-07-30] MEDS: HumaLOG INSULIN (NovoLOG) PER UNIT SC SCH ×4 (07:30→21:34)
[2016-07-30] MEDS: cefTRIAXone SOD 1 GM in D5W MINI-BAG PLUS 50 ML IV SCH (08:09)
[2016-07-30] MEDS: SERTRALINE HCL 50 MG TAB PO SCH (09:00)
[2016-07-30] MEDS: MIRALAX *UNIT DOSE* 17GM PACKET PO SCH (09:00)
[2016-07-30] MEDS: AZELASTINE 137MCG NASAL SPY 30 ML (ASTELIN) SCH ×2 (09:00→21:35)
[2016-07-30] MEDS: PERCOCET 5MG/325MG TAB PO PRN ×2 (09:05→21:33)
--- NOTE | 2016-07-30 10:08 | REP ---
Clinical: Shortness of breath. CHF . Comparison: 07/26/2016 . Technique: PA and lateral. Findings: The mediastinum and cardiac silhouette are normal. The lung covington are clear and without acute consolidation, effusion, or pneumothorax. The skeletal structures are intact and normal. Impression: 1. No acute cardiopulmonary process. Signed by Magdiel Brody MD 07/30/2016 09:59 A
--- NOTE | 2016-07-30 10:33 | CR ---
DATE OF CONSULTATION: 07/30/2016 REASON FOR CONSULTATION: Acute renal failure. HISTORY OF PRESENT ILLNESS: Ms. Munson is a 66-year-old female with known history of diabetes, bladder cancer, status post transurethral resection of bladder tumor (TURBT), hypertension and chronic urinary retention requiring catheterizations. She was admitted to [facility] with severe hyperglycemia and has been treated for possible urinary tract infection (UTI) and flu symptoms. She did test positive for coronavirus and urine culture was positive for E-coli. She has leukocytosis with white cell count as high as 31.3. BUN went up to 52 and creatinine 3.11 yesterday due to which nephrology consultation was requested. The patient is seen this morning. She has been hydrated with IV fluids since admission due to decreased oral intake. In addition, she has been receiving IV antibiotics. PAST MEDICAL AND SURGICAL HISTORY: Significant for: 1. History of hypertension. 2. Dyslipidemia. 3. History of insulin-requiring diabetes. 4. Hypothyroidism. 5. Chronic urinary retention requiring intermittent catheterization at home. 6. History of chronic obstructive pulmonary disease (COPD). PAST SURGICAL HISTORY: Significant for: 1. Cholecystectomy. 2. Appendectomy. 3. Benign breast tumor removal. 4. Transurethral resection of bladder tumor (TURBT). 5. Cystoscopies. 6. Hysterotomy. ALLERGIES: She has no known drug allergies. MEDICATIONS: Home medications include: - insulin per sliding scale - levothyroxine 25 mcg daily - lisinopril 2.5 mg daily - metformin 500 mg twice daily - oxybutynin 5 mg twice daily - Percocet one tablet three times daily - sertraline 50 mg daily - simvastatin 20 mg at bedtime She also took Tessalon Perles for cough and she takes Toujeo 44 units subcu daily. FAMILY HISTORY: Father at age 80 due to emphysema and diabetes. Mother also at age 80 due to Alzheimer's. PERSONAL AND SOCIAL HISTORY: The patient is an active smoker about one pack a day for last 30 years. She denies any alcohol or recreational drug use. REVIEW OF SYSTEMS: Ears, nose and throat are unremarkable. She denies any fever or chills. Cardiovascular system negative for dyspnea or chest pain. Respiratory system is significant for questionable chronic obstructive pulmonary disease (COPD) with active smoking. She denies any hemoptysis or pleuritic type of chest pain. Gastrointestinal (GI) system is significant for decreased oral intake for several days. However, it has now improved. She denies any nausea, vomiting or diarrhea. Genitourinary () system is negative for dysuria or hematuria at present. She reports frequency of urination and wants to get off the IV fluid. Endocrine system is significant for hypothyroidism and diabetes. Hematological system is negative for any excessive bleeding or bruising. Musculoskeletal system is negative for leg edema or arthralgias. She denies using any non-steroidal anti-inflammatory drugs (NSAID)s. Skin is negative for rash or ulcers. Neurological system is negative for seizures or stroke. PHYSICAL EXAMINATION: The patient is awake and alert and without any acute distress. Temperature 99.4 degrees Fahrenheit, heart 76 per minute and respiratory rate 18 per minute. Blood pressure 155/72 mmHg and oxygen saturation 99% on room air. Head: Is atraumatic. Pupils equal and reactive to light and sclera is anicteric. Ears, nose and throat are unremarkable. Mucous membranes are moist healthy. Neck is supple and without jugular venous distention (JVD) or thyroid enlargement. Heart: Sounds are regular and lungs clear to auscultation bilaterally. Abdomen: Soft and nontender. Bowel sounds normal. Extremities have no cyanosis or clubbing. Skin has no rash or ulcers. Neurologically she is awake, alert and oriented times three. LABORATORY DATA: Her initial labs on the time of admission showed a BUN 61 and creatinine 2.39. Glucose was 458. Lactic acid 2.2. Hemoglobin A1c was 10.2. On 07/29, BUN up to 52 and creatinine 3.11. Glucose down to 84, sodium 142 and potassium 3.9. Today her BUN is 48 and creatinine 2.84. CO2 17 and chloride 111. Sodium 141, potassium 4.1. Urinalysis showed 56 WBCs and 3+ leukocyte esterase with 3+ bacteria. Urine culture is positive for E-coli. PROBLEMS: 1. Acute renal failure. The patient is known to have a baseline serum creatinine of 0.9. Acute kidney injury is most likely related to a combination of decreased oral intake and sepsis with urinary tract infection (UTI). She seems quite well-hydrated now and her oral intake has improved. She does not wish to continue IV fluid anymore. We will stop the IV fluid and encourage oral intake of liquids. Kidney function is likely to improve over next few days. The patient also had severe hyperglycemia and time of admission which was probably related to acute infection and has improved. 2. Metabolic acidosis. She does have mild metabolic acidosis with pH of 7.29 on admission. As her kidney function has started to improve, her acidosis is likely to improve without any intervention. I will hold off on sodium bicarbonate. 3. Urinary tract infection (UTI). The patient remains on ceftriaxone which is appropriate. She is afebrile and improving. Thank you for involving me in the care of Ms. Munson. I will follow her along with you.
--- NOTE | 2016-07-30 12:53 | IPNPDOC ---
Subjective Date Seen The patient was seen on 07/30/16. Subjective Chief Complaint/HPI The patient is a 66-year-old female admitted with a reason for visit of Hyperglycemia. Events since last encounter Patient denies SOB and cough is minimal. She has no complaints today. Constitutional: Denies: Chills, Fever, Malaise ENT: Denies: Head Aches Skin: Denies: Rash Pulmonary: Denies: Cough, Dyspnea Cardiovascular: Denies: Chest Pain, Orthopnea, Palpitations Gastrointestinal: Denies: Abdominal Pain, Diarrhea, Nausea, Vomiting Genitourinary: Reports: Retention (chronic), Denies: Dysuria, Frequency Neurological: Denies: Weakness Psych: Reports: Mood Normal Objective Physical Examination General Exam: Positive: Alert, Cooperative, No Acute Distress ENT Exam: Positive: Atraumatic, Mucous membr. moist/pink Neck Exam: Negative: JVD Chest Exam: Positive: Clear to auscultation, Normal air movement, Negative: Rales, Rhonchi, Wheezing Heart Exam: Positive: Normal S1, Normal S2, Rate Normal, Negative: Murmurs Abdomen Exam: Positive: Normal bowel sounds, Soft, Negative: Tenderness Extremity Exam: Negative: Edema Assessment /Plan Problems (1) Acute renal failure Status: Acute Problem Text: Likely due to hyperglycemia and UTI. Cr and GFR slowly improving. Renal ultrasound does not show any hydronephrosis. Nephro following - appreciate their input. Nephro stopped IVF this morning. PO fluid intake encouraged. Continue to treat hyperglycemia and UTI as below. (2) UTI (urinary tract infection) Status: Acute Problem Text: Urine culture positive for >100,000 E. Coli, pansensitive. Continue ceftriaxone. (3) Acute bronchitis Status: Acute Problem Text: Positive for coronavirus. Oxygen saturations are >97% on room air. (4) Diabetes mellitus with hyperglycemia Status: Acute Response to Treatment: Improving Problem Text: Initial hyperglycemia was likely due to acute infection. Continue Levemir and SSI. Blood sugars better controlled in 150s - 200s; no hypoglycemia on current regimen. (5) Urinary retention Status: Chronic Problem Text: Normally straight caths at home - this has been continued here. (6) Tobacco abuse Status: Chronic Problem Text: smokes 1 ppd Plan/VTE VTE Prophylaxis Ordered?: Yes (SQ heparin) Plan/Urinary Catheter Reason for insertion/continuin: Acute obstruct/retention VS, I&O, 24H, Fishbone Vital Signs/I&O Vital Signs Date Time Temp Pulse Resp B/P Pulse Ox O2 Delivery O2 Flow Rate FiO2 07/30/16 10:35 16 07/30/16 06:00 99.4 76 155/72 99 Room Air 07/28/16 20:40 1.0 I&O- Last 24 Hours up to 6 AM 07/30/16 05:59 Intake Total 3840 ml Output Total 5150 ml Balance -1310 ml Laboratory Data 24H LABS Laboratory Tests 2 07/29/16 13:48: Bedside Glucose (Misc Panel) 170H 07/29/16 17:42: Bedside Glucose (Misc Panel) 156H 07/29/16 20:16: Bedside Glucose (Misc Panel) 136H 07/30/16 06:30: Blood Urea Nitrogen 48H, Creatinine 2.84H, Sodium Level 141, Potassium Level 4.1 , Chloride Level 111H, Carbon Dioxide Level 17L, Calcium Level 8.5L, Aspartate Amino Transf (AST/SGOT) 58H, Alanine Aminotransferase (ALT/SGPT) 36, Alkaline Phosphatase 347H, Total Bilirubin 0.7, Total Protein 7.0, Albumin 1.9L, Albumin/ Globulin Ratio 0.37L, Anion Gap 13, Glomerular Filtration Rate 17.8L 07/30/16 12:28: Bedside Glucose (Misc Panel) 247H CBC/BMP Laboratory Tests 07/30/16 06:30 Calcium Level 8.5 L, Aspartate Amino Transf (AST/SGOT) 58 H, Alanine Aminotransferase (ALT/SGPT) 36, Alkaline Phosphatase 347 H, Total Bilirubin 0.7 , Total Protein 7.0, Albumin 1.9 L, Red Blood Count 4.56, Mean Corpuscular Volume 90.4, Mean Corpuscular Hemoglobin 29.3, Mean Corpuscular Hemoglobin Concent 32.4, Red Cell Distribution Width 14.4 Microbiology Microbiology 07/26/16 Blood Culture - Preliminary, Resulted No Growth after 72 hours. All specime... 07/26/16 Blood Culture - Preliminary, Resulted No Growth after 72 hours. All specime... 07/26/16 Influenza Virus Type A Antigen - Final, Complete 07/26/16 Influenza Virus Type B Antigen - Final, Complete 07/26/16 Respiratory Virus Panel (PCR) (IVAN) - Final, Complete Coronavirus Oc43 07/26/16 Urine Culture - Final, Complete Escherichia Coli LIU BARRY MD Jul 30, 2016 12:53
[2016-07-30 14:00] VITALS: BP 132/74
[2016-07-30] MEDS: SIMVASTATIN 20 MG TAB PO SCH (21:33)
[2016-07-30] MEDS: LEVEMIR (INSULIN DETEMIR) 1 UNITS/0.01ML SC SCH (21:35)
[2016-07-30 22:00] VITALS: BP 166/81
[2016-07-31] MEDS: IPRATROPIUM 0.5MG/ALBUTEROL 2.5MG INH SOL UD 3ML (DUONEB)(J7620) NEB SCH ×6 (03:24→23:29)
[2016-07-31] MEDS: BENZONATATE 100 MG CAP PO SCH ×3 (05:15→21:51)
[2016-07-31] MEDS: LEVOTHYROXINE 0.025 MG TAB (25 MCG) PO SCH (05:15)
[2016-07-31] MEDS: HEPARIN SOD (PORCINE) 5000 UNITS/ML VIAL SC SCH ×3 (05:15→21:51)
[2016-07-31] MEDS: PERCOCET 5MG/325MG TAB PO PRN ×3 (05:16→18:05)
[2016-07-31 06:00] VITALS: BP 160/80
[2016-07-31 06:49] LABS: MEAN CORPUSCULAR HEMOGLOBIN 28.6 pg (27.0-33.0); MEAN CORPUSCULAR VOLUME 89.2 fl (80.0-96.0); RED CELL DISTRIBUTION WIDTH 14.6 % (11.5-14.5)
[2016-07-31 07:09] LABS: ALBUMIN 1.9 GM/DL (3.2-5.2); ALBUMIN/GLOBULIN RATIO 0.38 (1.00-1.93); BILIRUBIN,TOTAL 0.4 MG/DL (0.2-1.0); CALCIUM LEVEL 8.2 MG/DL (8.8-10.2); CREATININE FOR GFR 2.5 MG/DL (0.55-1.02); GLOMERULAR FILTRATION RATE 20.6 (>45); POTASSIUM SERUM 4.4 MEQ/L (3.5-5.1); TOTAL PROTEIN 6.9 GM/DL (6.4-8.2)
[2016-07-31] MEDS: AZELASTINE 137MCG NASAL SPY 30 ML (ASTELIN) SCH ×2 (08:12→21:51)
[2016-07-31] MEDS: MIRALAX *UNIT DOSE* 17GM PACKET PO SCH (08:12)
[2016-07-31] MEDS: SERTRALINE HCL 50 MG TAB PO SCH (08:12)
[2016-07-31] MEDS: HumaLOG INSULIN (NovoLOG) PER UNIT SC SCH ×2 (08:12→12:32)
[2016-07-31] MEDS: cefTRIAXone SOD 1 GM in D5W MINI-BAG PLUS 50 ML IV SCH ×2 (08:12→08:57)
--- NOTE | 2016-07-31 12:59 | IPN ---
DATE OF SERVICE: 07/31/2016 Yessica feels well. She is ready to go home tomorrow. She does not want to go home today. She is having some constipation. Her acute renal failure has improved. Renal function gets better on a daily basis. Nephrology has been following. She has an Escherichia (E.) coli urinary tract infection (UTI). Currently, on ceftriaxone. Has coronavirus leading to some shortness of breath, which has resolved, as well. Diabetes is under good control. She uses Toujeo insulin at home. Daily insulin dose currently higher than she was receiving here. Getting scant coverage on the sliding scale, so I am going to be discontinuing that. PHYSICAL EXAMINATION: VITAL SIGNS: Stable. LUNGS: Clear. HEART: Regular rate and rhythm. ABDOMEN: Soft, nontender. No peripheral edema. LABORATORIES: Creatinine is down to 2.5. White count is 23,000. IMPRESSION: 1. Acute renal failure, resolving. Intravenous (IV) fluids have been stopped. 2. Urinary tract infection. Discharge on by mouth Keflex tomorrow. 3. Diabetes. Put her on home dose of Toujeo on discharge tomorrow. 4. Constipation. Bowel care ordered. 5. Urinary tract infection possibly secondary to intermittent straight catheterization at home due to urinary retention. 6. Secondary sepsis present on admission from urinary tract infection. Edited 07/31/2016 @ [address] [facility]
[2016-07-31] MEDS: CEPHALEXIN 500 MG CAP PO SCH ×2 (13:11→21:51)
[2016-07-31 14:00] VITALS: BP 160/80
--- NOTE | 2016-07-31 16:37 | IPN ---
DATE: 07/31/2016 SUBJECTIVE: This is a 66-year-old female who was seen and examined at the bedside. Overnight no report of acute events. This morning, denies any chest pain, shortness of breath, fevers, chills. Has been making good urine output. OBJECTIVE: VITALS: Blood pressure 160/80, heart rate 83, temperature 98.1, respiratory rate 18, pulse oximetry 96% on room air. INTAKE/OUTPUT: Last 24 hours: 3220 mL and 5600 mL, net negative 2.4 liters. Weight is not documented. GENERAL: Patient is sitting in bed, comfortable, in no acute distress. She is alert, awake, oriented times three, pleasant, cooperative. HEENT: Normocephalic, atraumatic. Moist oral mucosa. NECK: Supple, trachea midline. No jugular venous distention (JVD). HEART: Regular rate and rhythm. Normal S1, S2. LUNGS: Clear to auscultation bilaterally. ABDOMEN: Soft, obese but nontender, nondistended, bowel sounds present. EXTREMITIES: No pedal edema. Pedal pulses present bilaterally. NEUROLOGIC: She is alert, awake, oriented times three. LABORATORY DATA: WBC 23, hemoglobin 12.7, hematocrit 39.5, platelets 403. Sodium 137, potassium 4.4, chloride 107, carbon dioxide 20, BUN 49, creatinine 2.5, glucose 277, calcium 8.2, total bilirubin 0.4. AST 19, ALT 27, alkaline phosphatase 365. Albumin 1.9. A urine culture from 07/26/2016 showed Escherichia (E) coli, which is pansensitive. Respiratory syncytial virus (RSV) positive for Coronavirus. IMPRESSION AND PLAN: Ms. Munson is a 66-year-old female with a history of diabetes, bladder cancer, status post transurethral resection of bladder tumor, hypertension, chronic urinary retention requiring catheterization, who is currently being treated for sepsis from urinary tract infection. 1. Acute renal failure. Her baseline creatinine is 0.9. Renal function is improving today compared to yesterday. Renal failure was likely secondary to sepsis from urinary tract infection (UTI) and dehydration. She is no longer on intravenous (IV) fluid, and we recommend continue increase oral intake. 2. Metabolic acidosis. This appears to be improving now that her renal function is improving. No sodium bicarbonate needed at this time. 3. Hypertension. She takes lisinopril 2.5 mg at home. Case discussed with primary team and recommend that if her renal function continues to be improving, can consider restarting lisinopril tomorrow. 4. Urinary tract infection. Currently on Rocephin by primary team. If she continues to do well, she might be able to be discharged tomorrow from a renal standpoint. My preceptor for this patient encounter was Dr. Ian Turcios. The preceptor was physically present in the building during the encounter and was fully available. As needed, all aspects of the patient interview, examination, medical decision making process, and medical care plan development were reviewed and approved by the preceptor. The preceptor is aware and concurs with the plan as stated in the body of this note and will attest to such by his/her cosignature. MARY
[2016-07-31] MEDS: SIMVASTATIN 20 MG TAB PO SCH (21:51)
[2016-07-31] MEDS: LEVEMIR (INSULIN DETEMIR) 1 UNITS/0.01ML SC SCH (21:52)
[2016-07-31 22:00] VITALS: BP 165/80
[2016-08-01] MEDS: PERCOCET 5MG/325MG TAB PO PRN (00:39)
[2016-08-01] MEDS: IPRATROPIUM 0.5MG/ALBUTEROL 2.5MG INH SOL UD 3ML (DUONEB)(J7620) NEB SCH ×3 (01:11→12:00)
[2016-08-01 06:00] VITALS: BP 162/60
[2016-08-01] MEDS: HEPARIN SOD (PORCINE) 5000 UNITS/ML VIAL SC SCH ×2 (06:16→13:50)
[2016-08-01] MEDS: LEVOTHYROXINE 0.025 MG TAB (25 MCG) PO SCH (06:16)
[2016-08-01] MEDS: BENZONATATE 100 MG CAP PO SCH ×2 (06:16→13:50)
[2016-08-01 07:22] LABS: MEAN CORPUSCULAR HEMOGLOBIN 29.1 pg (27.0-33.0); MEAN CORPUSCULAR HGB CONC 32.5 g/dl (32.0-36.5); MEAN CORPUSCULAR VOLUME 89.4 fl (80.0-96.0); RED CELL DISTRIBUTION WIDTH 14.7 % (11.5-14.5); WHITE BLOOD COUNT 19.8 K/mm3 (4.0-10.0)
[2016-08-01 07:45] LABS: ALBUMIN 1.8 GM/DL (3.2-5.2); ALBUMIN/GLOBULIN RATIO 0.41 (1.00-1.93); BILIRUBIN,TOTAL 0.3 MG/DL (0.2-1.0); CALCIUM LEVEL 8.2 MG/DL (8.8-10.2); CREATININE FOR GFR 2.24 MG/DL (0.55-1.02); GLOMERULAR FILTRATION RATE 23.4 (>45); POTASSIUM SERUM 4.3 MEQ/L (3.5-5.1); TOTAL PROTEIN 6.2 GM/DL (6.4-8.2)
[2016-08-01] MEDS: CEPHALEXIN 500 MG CAP PO SCH (08:40)
[2016-08-01] MEDS: MIRALAX *UNIT DOSE* 17GM PACKET PO SCH (08:41)
[2016-08-01] MEDS: AZELASTINE 137MCG NASAL SPY 30 ML (ASTELIN) SCH (08:41)
[2016-08-01] MEDS: SERTRALINE HCL 50 MG TAB PO SCH (08:41)
[2016-08-01] MEDS ORDERED: amLODIPine 5 MG TAB PO SCH (09:00)
--- NOTE | 2016-08-01 11:13 | IPN ---
DATE: 08/01/2016 SUBJECTIVE: This is a 66-year-old female who was seen and examined at the bedside. Overnight no reported acute events. She was changed from IV antibiotics to by mouth yesterday. Denies any problems today and is anxious to go home. No chest pain, shortness of breath, leg swelling, nausea or vomiting. She wanted to know if there is anyway that she can be off her Choudhary catheter. OBJECTIVE: VITAL SIGNS: Blood pressure 162/60, heart rate 72, temperature 99.1, respiration rate 17. Pulse ox 98% on room air. Intake and output over the last 24 [id number] and [id number] for a net negative of 2.7 liters. GENERAL: The patient is sitting in bed comfortable. No acute distress. She is alert, awake, oriented times three, pleasant, cooperative. HEENT: Normocephalic, atraumatic, extraocular movement intact. NECK: Supple, trachea midline. CHEST: Symmetric chest rise, no accessory muscle use. HEART: Regular rate and rhythm, S1, S2 normal. LUNGS: Clear to auscultation bilaterally. ABDOMEN: Soft, nontender, nondistended, bowel sounds, present, no guarding, no rebound. EXTREMITY: Pedal pulses present bilaterally, no pedal edema. NEUROLOGIC: She is without focal deficits. PSYCHIATRIC: Pleasant, cooperative, normal affect. LABORATORY DATA: WBC 19.8 improved from yesterday at 23, hemoglobin 11.2 and hematocrit 36.1, platelet 330. Sodium 141, potassium 4.3, chloride 110, carbon dioxide 26, BUN 37, creatinine 2.24 improved from yesterday 2.5, glucose 271, calcium 8.2. Total bilirubin 0.3, AST 12, ALT 17, alkaline phosphatase 273, albumin 1.8, corrected calcium is 10. IMPRESSION AND PLAN: Ms Munson is a 66-year-old female with history of diabetes, bladder cancer, status post transurethral resection of the bladder tumor, hypertension, chronic urinary retention requiring catheterization admitted for urinary tract infection and acute renal failure secondary to underlying infection. 1. Acute renal failure: Renal functioning continues to be improving each day, however, she is not back at her baseline yet. Would therefore, recommend holding home dose JOY inhibitor for now. She will require followup with Dr. Turcios in 2 weeks. 2. Hypertension: The patient takes lisinopril 2.5 mg at home. We have started her on Norvasc 5 mg by mouth daily. Recommend that the patient be continued with Norvasc daily and continue holding lisinopril for now due to her renal function. 3. Urinary tract infection: She is now on Keflex 500 twice a day, previously on Rocephin. Today will day 5 with antibiotics. 4. Metabolic acidosis: Secondary to renal dysfunction. This is now resolved. From a renal standpoint, the patient may be discharged home with Norvasc added to her home regimen and lisinopril on hold for now. My preceptor for this patient encounter was Dr. Ian Turcios. The preceptor was physically present in the building during the encounter and was fully available. As needed, all aspects of the patient interview, examination, medical decision making process, and medical care plan development were reviewed and approved by the preceptor. The preceptor is aware and concurs with the plan as stated in the body of this note and will attest to such by his/her cosignature. MARY
[2016-08-01] MEDS ORDERED: CEPH500C PO (15:42)
--- NOTE | 2016-08-01 15:55 | DSES ---
DATE OF ADMISSION: 07/26/2016 DATE OF DISCHARGE: 08/01/2016 PRINCIPAL DIAGNOSIS: Acute renal failure. SECONDARY DIAGNOSES: 1. Escherichia coli urinary tract infection. 2. Coronavirus respiratory infection. 3. Hypertensive heart disease. 4. Lactic acidosis. 5. History of neurogenic bladder, requiring self-catheterization. 6. Type 2 diabetes. 7. Sepsis present on admission from urinary tract infection. HISTORY: Yessica Munson was admitted July 26 with severe hyperglycemia, found to have suggestion of both urinary tract infection (UTI) and respiratory infection. For details see history and physical from admission. HOSPITAL COURSE: Patient was admitted to a medical bed. She ended up growing Escherichia (E) coli from her urine. Coronavirus likely due from respiratory secretions. She was treated with Rocephin on admission and then changed to Keflex. Her renal failure responded to intravenous (IV) fluid. She was seen by nephrology. Renal function improved on a daily basis. She was hyperglycemic on admission. Blood sugars varied from borderline hypoglycemic with blood sugar of 79 to hyperglycemic with blood sugars over 100. This morning it was 270. SIGNIFICANT LABORATORIES: Today, sodium 141, potassium 4.3, BUN 37, creatinine 2.2, glucose 271. White count 19,000; it has come down every day this week. Hemoglobin 11.7, platelets 330. Urine grew out E. coli sensitive to cephalosporins. Respiratory panel grew out Coronavirus, coincidentally with the same pathogens, both urinary and respiratory, that her twin sister, with whom she lives, also was admitted for. DISPOSITION: She is discharged home in improved and stable condition. She will followup with Sonali Hopkins, who is her primary care provider. Activity as tolerated. Consistent-carbohydrate diet. MEDICATIONS ON DISCHARGE: - Astelin spray as needed - Tessalon Perles three times a day as needed - Tujeo 44 units daily - Humalog Lispro per sliding scale at home - levothyroxine 25 mcg daily - oxybutynin 5 mg twice a day - sertraline 50 mg daily - simvastatin 20 mg daily Metformin and lisinopril have been discontinued. She will be on Keflex 500 mg twice a day for 7 more days. This has been sent to her pharmacy.
== END 2016-08-01 16:54 | disposition home or self-care (01) | DRG 720 ==
LOC: M ED 14:41 → M ED INP 16:36 → M ICU 19:13 → M MS5PR 07-27 16:10
PROVIDERS: ADMIT Internal Medicine; ATTEND Family Medicine
DX: A41.9 Sepsis, unspecified organism (principal); N17.9 Acute kidney failure, unspecified; E87.2 Acidosis; I11.9 Hypertensive heart disease without heart failure; N39.0 Urinary tract infection, site not specified; E11.65 Type 2 diabetes mellitus with hyperglycemia; C67.9 Malignant neoplasm of bladder, unspecified; B96.29 Other Escherichia coli [E. coli] as the cause of diseases classified elsewhere; N31.9 Neuromuscular dysfunction of bladder, unspecified; B97.29 Other coronavirus as the cause of diseases classified elsewhere; Z79.899 Other long term (current) drug therapy; Z79.4 Long term (current) use of insulin; F17.200 Nicotine dependence, unspecified, uncomplicated; E78.5 Hyperlipidemia, unspecified; K59.00 Constipation, unspecified

== ENCOUNTER → 2016-08-09 | Outpatient (REF) | payer OTHER ==
[~2016-08-09] MED LIST changes: +CEPH500C PO
== END ==
LOC: M SFHCADAM 14:54
PROVIDERS: ATTEND Physician Assistant Medical
DX: N17.9 Acute kidney failure, unspecified (principal)

== ENCOUNTER → 2016-08-21 | Outpatient (REF) | payer OTHER ==
[2016-08-21 20:28] LABS: MEAN CORPUSCULAR HEMOGLOBIN 27.8 pg (27.0-33.0); MEAN CORPUSCULAR HGB CONC 31.2 g/dl (32.0-36.5); MEAN CORPUSCULAR VOLUME 88.9 fl (80.0-96.0); RED CELL DISTRIBUTION WIDTH 14.5 % (11.5-14.5); WHITE BLOOD COUNT 11.2 K/mm3 (4.0-10.0)
== END ==
LOC: M SMT 09:25
PROVIDERS: ATTEND Urology
DX: C67.9 Malignant neoplasm of bladder, unspecified (principal)

== ENCOUNTER → 2016-09-07 | Outpatient (CLI) | payer OTHER ==
[2016-09-07 17:46] LABS: MEAN CORPUSCULAR HEMOGLOBIN 28.4 pg (27.0-33.0); MEAN CORPUSCULAR HGB CONC 31.8 g/dl (32.0-36.5); MEAN CORPUSCULAR VOLUME 89.3 fl (80.0-96.0); RED CELL DISTRIBUTION WIDTH 15.3 % (11.5-14.5); WHITE BLOOD COUNT 10.6 K/mm3 (4.0-10.0)
[2016-09-07 18:19] LABS: CALCIUM LEVEL 8.7 MG/DL (8.8-10.2); CREATININE FOR GFR 1.53 MG/DL (0.55-1.02); GLOMERULAR FILTRATION RATE 36.4 (>45)
[2016-09-07 18:21] LABS: POTASSIUM SERUM 5.3 MEQ/L (3.5-5.1)
== END ==
LOC: M SMT 13:46
PROVIDERS: ATTEND Urology
DX: C67.9 Malignant neoplasm of bladder, unspecified (principal)

== ENCOUNTER → 2016-09-25 | Outpatient (CLI) | payer OTHER ==
--- NOTE | 2016-09-25 16:41 | REP ---
Lumbar spine series: Five views: History: Right-sided sciatica. Low back pain. Findings: There are multiple surgical clips in right upper quadrant and right lower quadrant. Some vascular calcification is observed. Lumbar vertebral body heights are preserved. There is degenerative disc disease at L4-5 with a grade 1 4 mm L4-5 spondylolisthesis due to degenerative disc and osteoarthritic facet disease at L4-5. No spondylolysis is seen. There is advanced facet disease at L5-S1 and moderate osteoarthritic facet changes are noted at L3-4 bilaterally. Mild discogenic spurring is seen at L2-3. Impression: Degenerative disc and advanced osteoarthritic facet disease most pronounced at L4-5 where there is a 4 mm degenerative spondylolisthesis. Signed by Dann Gustafson MD 09/25/2016 05:10 P
== END ==
LOC: M ADAMS 15:52
PROVIDERS: ATTEND Physician Assistant Medical
DX: M54.41 Lumbago with sciatica, right side (principal)

== ENCOUNTER → 2016-09-25 | Outpatient (REF) | payer OTHER ==
[2016-09-25 20:02] LABS: ALBUMIN 3.2 GM/DL (3.2-5.2); ALBUMIN/GLOBULIN RATIO 0.86 (1.00-1.93); BILIRUBIN,TOTAL 0.1 MG/DL (0.2-1.0); CALCIUM LEVEL 8.8 MG/DL (8.8-10.2); CREATININE FOR GFR 1.55 MG/DL (0.55-1.02); GLOMERULAR FILTRATION RATE 35.8 (>45); POTASSIUM SERUM 4.8 MEQ/L (3.5-5.1); TOTAL PROTEIN 6.9 GM/DL (6.4-8.2)
== END ==
LOC: M SFHCADAM 15:29
PROVIDERS: ATTEND Physician Assistant Medical
DX: E11.9 Type 2 diabetes mellitus without complications (principal); E55.9 Vitamin D deficiency, unspecified; E03.9 Hypothyroidism, unspecified

== ENCOUNTER → 2016-12-11 | Outpatient (REF) | payer OTHER ==
[~2016-12-11] MED LIST changes: -METF500T PO; +METF500T13 PO; -OXYB5TA PO; +OXYB5TAB10 PO; +PERC5TAB12 PO; -PERC5TAB6 PO
[2016-12-11 20:32] LABS: ALBUMIN 3.5 GM/DL (3.2-5.2); ALBUMIN/GLOBULIN RATIO 0.97 (1.00-1.93); BILIRUBIN,TOTAL 0.2 MG/DL (0.2-1.0); CALCIUM LEVEL 9.4 MG/DL (8.8-10.2); CREATININE FOR GFR 1.38 MG/DL (0.55-1.02); FREE T4 1.28 NG/DL (0.76-1.46); TOTAL PROTEIN 7.1 GM/DL (6.4-8.2)
[2016-12-11 20:33] LABS: POTASSIUM SERUM 5.3 MEQ/L (3.5-5.1)
[2016-12-11 20:36] LABS: MEAN CORPUSCULAR HEMOGLOBIN 28.3 pg (27.0-33.0); MEAN CORPUSCULAR VOLUME 85.7 fl (80.0-96.0); RED CELL DISTRIBUTION WIDTH 15.4 % (11.5-14.5); WHITE BLOOD COUNT 11.5 K/mm3 (4.0-10.0)
== END ==
LOC: M SFHCADAM 13:10
PROVIDERS: ATTEND Urology
DX: E11.9 Type 2 diabetes mellitus without complications (principal); F11.90 Opioid use, unspecified, uncomplicated; E03.9 Hypothyroidism, unspecified

== ENCOUNTER → 2017-03-22 | Outpatient (REF) | payer MEDICARE, OTHER ==
[2017-03-22 19:54] LABS: BASO # 0.1 10^3/uL (0.0-0.2); BASO % 0.5 % (0.0-1.0); EOS # 0.2 10^3/uL (0.0-0.50); IMMATURE GRANULOCYTE % 0.4 % (0-0); LYMPH # 1.1 10^3/uL (1.5-4.5); LYMPH % 10.7 % (24.0-44.0); MEAN CORPUSCULAR HGB CONC 32.1 g/dl (32.0-36.5); MEAN CORPUSCULAR VOLUME 87.4 fl (80.0-96.0); MONO # 0.7 10^3/uL (0.0-0.8); MONO % 6.7 % (0.0-5.0); NEUTROPHILS # 8.4 10^3/uL (1.8-7.7); NEUTROPHILS % 79.7 % (36.0-66.0); PLATELET COUNT, AUTOMATED 282 10^3/uL (150-450); RED CELL DISTRIBUTION WIDTH 14.6 % (11.5-14.5); WHITE BLOOD COUNT 10.5 10^3/uL (4.0-10.0)
[2017-03-22 20:15] LABS: ALBUMIN 3.7 GM/DL (3.2-5.2); ALBUMIN/GLOBULIN RATIO 1.06 (1.00-1.93); BILIRUBIN,TOTAL 0.3 MG/DL (0.2-1.0); CALCIUM LEVEL 9.3 MG/DL (8.8-10.2); CREATININE FOR GFR 1.36 MG/DL (0.55-1.02); GLOMERULAR FILTRATION RATE 41.5 (>45); TOTAL PROTEIN 7.2 GM/DL (6.4-8.2)
[2017-03-22 20:21] LABS: POTASSIUM SERUM 5.7 MEQ/L (3.5-5.1)
== END ==
LOC: M SFHCADAM 13:36
PROVIDERS: ATTEND Physician Assistant Medical
DX: E11.9 Type 2 diabetes mellitus without complications (principal); E03.9 Hypothyroidism, unspecified; E78.1 Pure hyperglyceridemia; G89.29 Other chronic pain; G47.00 Insomnia, unspecified; Z23 Encounter for immunization
CPT/HCPCS: 80053; 80061; 83036; 84443; 85025; 90662; 90670; G0008; G0009; G0463

== ENCOUNTER → 2017-04-22 | Outpatient (CLI) | payer MEDICARE, OTHER ==
[2017-04-22 14:51] LABS: MEAN CORPUSCULAR HEMOGLOBIN 28.5 pg (27.0-33.0); MEAN CORPUSCULAR HGB CONC 32.1 g/dl (32.0-36.5); MEAN CORPUSCULAR VOLUME 88.9 fl (80.0-96.0); PLATELET COUNT, AUTOMATED 245 10^3/uL (150-450); RED CELL DISTRIBUTION WIDTH 14.5 % (11.5-14.5); WHITE BLOOD COUNT 9.3 10^3/uL (4.0-10.0)
[2017-04-22 15:25] LABS: ALBUMIN 3.7 GM/DL (3.2-5.2); ALBUMIN/GLOBULIN RATIO 1.06 (1.00-1.93); BILIRUBIN,TOTAL 0.2 MG/DL (0.2-1.0); CALCIUM LEVEL 9.4 MG/DL (8.8-10.2); CREATININE FOR GFR 1.33 MG/DL (0.55-1.02); GLOMERULAR FILTRATION RATE 42.6 (>45); TOTAL PROTEIN 7.2 GM/DL (6.4-8.2)
[2017-04-22 15:28] LABS: POTASSIUM SERUM 5.4 MEQ/L (3.5-5.1)
== END ==
LOC: M WUC 13:43
PROVIDERS: ATTEND Urology
DX: C67.9 Malignant neoplasm of bladder, unspecified (principal); Z79.899 Other long term (current) drug therapy

== ENCOUNTER → 2017-04-23 | Outpatient (CLI) | payer MEDICARE, OTHER ==
[2017-04-23 13:29] LABS: ALBUMIN 3.9 GM/DL (3.2-5.2); ALBUMIN/GLOBULIN RATIO 1.18 (1.00-1.93); BASO # 0.1 10^3/uL (0.0-0.2); BASO % 0.7 % (0.0-1.0); BILIRUBIN,TOTAL 0.3 MG/DL (0.2-1.0); CALCIUM LEVEL 9.1 MG/DL (8.8-10.2); CREATININE FOR GFR 1.33 MG/DL (0.55-1.02); EOS # 0.2 10^3/uL (0.0-0.50); EOS % 2.2 % (0.0-3.0); GLOMERULAR FILTRATION RATE 42.6 (>45); IMMATURE GRANULOCYTE % 0.6 % (0-0); LYMPH # 1.7 10^3/uL (1.5-4.5); LYMPH % 15.7 % (24.0-44.0); MEAN CORPUSCULAR HEMOGLOBIN 28.6 pg (27.0-33.0); MEAN CORPUSCULAR HGB CONC 32.3 g/dl (32.0-36.5); MEAN CORPUSCULAR VOLUME 88.7 fl (80.0-96.0); MONO # 1.1 10^3/uL (0.0-0.8); MONO % 10.1 % (0.0-5.0); NEUTROPHILS # 7.6 10^3/uL (1.8-7.7); NEUTROPHILS % 70.7 % (36.0-66.0); PLATELET COUNT, AUTOMATED 267 10^3/uL (150-450); RED CELL DISTRIBUTION WIDTH 14.4 % (11.5-14.5); TOTAL PROTEIN 7.2 GM/DL (6.4-8.2); WHITE BLOOD COUNT 10.7 10^3/uL (4.0-10.0)
== END ==
LOC: M WUC 10:03
PROVIDERS: ATTEND Physician Assistant Medical
DX: E11.9 Type 2 diabetes mellitus without complications (principal); G89.29 Other chronic pain; G47.00 Insomnia, unspecified

== ENCOUNTER → 2017-05-14 | Outpatient (REF) | payer MEDICARE, OTHER ==
[2017-05-14 14:53] LABS: HEMOGLOBIN 13.9 g/dl (12.0-16.0); MEAN CORPUSCULAR HEMOGLOBIN 28.2 pg (27.0-33.0); MEAN CORPUSCULAR HGB CONC 31.6 g/dl (32.0-36.5); MEAN CORPUSCULAR VOLUME 89.2 fl (80.0-96.0); PLATELET COUNT, AUTOMATED 200 10^3/uL (150-450); RED BLOOD COUNT 4.93 10^6/uL (4.00-5.40); RED CELL DISTRIBUTION WIDTH 14.4 % (11.5-14.5); WHITE BLOOD COUNT 9.7 10^3/uL (4.0-10.0)
[2017-05-14 15:14] LABS: ALBUMIN 3.6 GM/DL (3.2-5.2); ALKALINE PHOSPHATASE 162 U/L (45-117); ALT/SGPT 25 U/L (12-78); ANION GAP 6 MEQ/L (8-16); AST/SGOT 19 U/L (7-37); BILIRUBIN,TOTAL 0.1 MG/DL (0.2-1.0); BLOOD UREA NITROGEN 23 MG/DL (7-18); CALCIUM LEVEL 9.2 MG/DL (8.8-10.2); CARBON DIOXIDE LEVEL 27 MEQ/L (21-32); CHLORIDE LEVEL 107 MEQ/L (98-107); CREATININE FOR GFR 1.37 MG/DL (0.55-1.02); GLOMERULAR FILTRATION RATE 41.2 (>45); GLUCOSE, FASTING 209 MG/DL (80-110); SODIUM LEVEL 140 MEQ/L (136-145); TOTAL PROTEIN 6.6 GM/DL (6.4-8.2)
[2017-05-14 15:18] LABS: APPEARANCE, URINE CLOUDY (CLEAR); BACTERIA, URINE AUTO 2+ (NEGATIVE); BILIRUBIN, URINE AUTO NEGATIVE (NEGATIVE); BLOOD, URINE BLOOD NEGATIVE (NEGATIVE); COLOR, URINE YELLOW (YELLOW); GLUCOSE, URINE (UA) AUTO NEGATIVE (NEGATIVE); KETONE, URINE AUTO NEGATIVE (NEGATIVE); LEUKOCYTE ESTERASE, URINE AUTO 3+ (NEGATIVE); NITRITE, URINE AUTO NEGATIVE (NEGATIVE); PROTEIN, URINE AUTO NEGATIVE (NEGATIVE); RBC, URINE AUTO 4 /HPF (0-3); SPECIFIC GRAVITY URINE AUTO 1.008 (1.002-1.035); SQUAMOUS EPITHELIAL CELL UR AU 44 /HPF (0-6); TRANSITIONAL EPITHELIAL AUTO 1 /HPF; UROBILINOGEN, URINE AUTO 0.2 mg/dL (0.0-2.0); WBC, URINE AUTO 101 /HPF (0-3)
[2017-05-14 15:23] LABS: POTASSIUM SERUM 6.4 MEQ/L (3.5-5.1)
== END ==
LOC: M LABDRAW1 14:36
DX: Z85.51 Personal history of malignant neoplasm of bladder (principal)
CPT/HCPCS: 80053

== ENCOUNTER → 2017-05-15 | Outpatient (CLI) | payer MEDICARE, OTHER ==
[2017-05-15 20:15] LABS: ANION GAP 7 MEQ/L (8-16); BLOOD UREA NITROGEN 27 MG/DL (7-18); CARBON DIOXIDE LEVEL 26 MEQ/L (21-32); CHLORIDE LEVEL 107 MEQ/L (98-107); GLOMERULAR FILTRATION RATE 43.8 (>45); GLUCOSE, FASTING 155 MG/DL (80-110); SODIUM LEVEL 140 MEQ/L (136-145)
[2017-05-15 20:17] LABS: POTASSIUM SERUM 5.9 MEQ/L (3.5-5.1)
== END ==
LOC: M SMT 13:09
DX: E87.5 Hyperkalemia (principal)
CPT/HCPCS: 80048

== ENCOUNTER → 2017-08-01 | Outpatient (REF) | payer MEDICARE, MEDICAID ==
[2017-08-01 13:06] LABS: ALBUMIN 3.8 GM/DL (3.2-5.2); ALBUMIN/GLOBULIN RATIO 1.15 (1.00-1.93); ALKALINE PHOSPHATASE 223 U/L (45-117); ALT/SGPT 30 U/L (12-78); ANION GAP 5 MEQ/L (8-16); AST/SGOT 21 U/L (7-37); BILIRUBIN,TOTAL 0.3 MG/DL (0.2-1.0); BLOOD UREA NITROGEN 18 MG/DL (7-18); CALCIUM LEVEL 9.2 MG/DL (8.8-10.2); CARBON DIOXIDE LEVEL 29 MEQ/L (21-32); CHLORIDE LEVEL 103 MEQ/L (98-107); GLOMERULAR FILTRATION RATE 43.8 (>45); GLUCOSE, FASTING 182 MG/DL (70-100); SODIUM LEVEL 137 MEQ/L (136-145); TOTAL PROTEIN 7.1 GM/DL (6.4-8.2)
[2017-08-01 13:07] LABS: POTASSIUM SERUM 5.3 MEQ/L (3.5-5.1)
[2017-08-01 13:28] LABS: ESTIMATED AVERAGE GLUCOSE 203 MG/DL (60-110); HEMOGLOBIN A1c 8.7 %
== END ==
LOC: M SFHCADAM 10:40
DX: E11.9 Type 2 diabetes mellitus without complications (principal); E78.4 Other hyperlipidemia; G47.00 Insomnia, unspecified; E78.1 Pure hyperglyceridemia; E03.9 Hypothyroidism, unspecified
CPT/HCPCS: 84443

== ENCOUNTER → 2017-08-02 | Outpatient (CLI) | payer MEDICARE, MEDICAID | LOC: M ADAMS 15:01 | DX: M43.16 Spondylolisthesis, lumbar region (principal); M25.561 Pain in right knee (principal); M12.88 Other specific arthropathies, not elsewhere classified, other specified site; M51.36 Other intervertebral disc degeneration, lumbar region; M51.37 Other intervertebral disc degeneration, lumbosacral region; M54.41 Lumbago with sciatica, right side; E11.9 Type 2 diabetes mellitus without complications; M25.562 Pain in left knee | CPT/HCPCS: 72110 ==

== ENCOUNTER → 2017-11-25 | Outpatient (REF) | payer MEDICARE, MEDICAID | LOC: M SMT 16:52 | DX: Z85.51 Personal history of malignant neoplasm of bladder (principal) | CPT/HCPCS: 88108 ==

== ENCOUNTER → 2017-11-29 | Outpatient (CLI) | payer MEDICARE, MEDICAID | LOC: M PAIN 14:00 | DX: M79.1 Myalgia (principal); M54.5 Low back pain; G89.29 Other chronic pain; E11.9 Type 2 diabetes mellitus without complications; I10 Essential (primary) hypertension; E78.5 Hyperlipidemia, unspecified; G47.00 Insomnia, unspecified; F32.9 Major depressive disorder, single episode, unspecified; E66.01 Morbid (severe) obesity due to excess calories; Z68.37 Body mass index [BMI] 37.0-37.9, adult; Z79.4 Long term (current) use of insulin; Z79.899 Other long term (current) drug therapy | CPT/HCPCS: G0463 ==

== ENCOUNTER → 2017-12-16 | Outpatient (CLI) | payer MEDICARE, MEDICAID ==
[2017-12-16 18:32] LABS: ALBUMIN 3.5 GM/DL (3.2-5.2); ALBUMIN/GLOBULIN RATIO 0.97 (1.00-1.93); ALKALINE PHOSPHATASE 171 U/L (45-117); ALT/SGPT 16 U/L (12-78); ANION GAP 10 MEQ/L (8-16); AST/SGOT 14 U/L (7-37); BILIRUBIN,TOTAL 0.2 MG/DL (0.2-1.0); BLOOD UREA NITROGEN 25 MG/DL (7-18); CALCIUM LEVEL 9.4 MG/DL (8.8-10.2); CARBON DIOXIDE LEVEL 25 MEQ/L (21-32); CHLORIDE LEVEL 108 MEQ/L (98-107); CREATININE FOR GFR 1.35 MG/DL (0.55-1.30); GLOMERULAR FILTRATION RATE 41.9 (>45); GLUCOSE, FASTING 141 MG/DL (70-100); POTASSIUM SERUM 4.4 MEQ/L (3.5-5.1); SODIUM LEVEL 143 MEQ/L (136-145); TOTAL PROTEIN 7.1 GM/DL (6.4-8.2)
[2017-12-16 18:38] LABS: HEMATOCRIT 49.4 % (36.0-47.0); MEAN CORPUSCULAR HGB CONC 32.4 g/dl (32.0-36.5); MEAN CORPUSCULAR VOLUME 89.5 fl (80.0-96.0); PLATELET COUNT, AUTOMATED 243 10^3/uL (150-450); RED BLOOD COUNT 5.52 10^6/uL (4.00-5.40); RED CELL DISTRIBUTION WIDTH 15.1 % (11.5-14.5); WHITE BLOOD COUNT 13.7 10^3/uL (4.0-10.0)
[2017-12-16 18:56] LABS: APPEARANCE, URINE TURBID (CLEAR); BACTERIA, URINE AUTO 3+ (NEGATIVE); BILIRUBIN, URINE AUTO NEGATIVE (NEGATIVE); BLOOD, URINE BLOOD 1+ (NEGATIVE); COLOR, URINE YELLOW (YELLOW); GLUCOSE, URINE (UA) AUTO 2+ mg/dL (NEGATIVE); KETONE, URINE AUTO NEGATIVE (NEGATIVE); LEUKOCYTE ESTERASE, URINE AUTO 3+ (NEGATIVE); NITRITE, URINE AUTO POSITIVE (NEGATIVE); PROTEIN, URINE AUTO 1+ mg/dL (NEGATIVE); RBC, URINE AUTO 10 /HPF (0-3); SPECIFIC GRAVITY URINE AUTO 1.012 (1.002-1.035); SQUAMOUS EPITHELIAL CELL UR AU 37 /HPF (0-6); UROBILINOGEN, URINE AUTO 0.2 mg/dL (0.0-2.0); WBC, URINE AUTO TNTC /HPF (0-3)
== END ==
LOC: M WUC 14:36
DX: R33.9 Retention of urine, unspecified (principal)
CPT/HCPCS: 80053

== ENCOUNTER → 2017-12-17 | Outpatient (CLI) | payer MEDICARE, MEDICAID ==
[2017-12-17 13:01] LABS: ALBUMIN 3.4 GM/DL (3.2-5.2); ALBUMIN/GLOBULIN RATIO 1.03 (1.00-1.93); ALKALINE PHOSPHATASE 183 U/L (45-117); ALT/SGPT 16 U/L (12-78); ANION GAP 9 MEQ/L (8-16); AST/SGOT 12 U/L (7-37); BILIRUBIN,TOTAL 0.2 MG/DL (0.2-1.0); BLOOD UREA NITROGEN 24 MG/DL (7-18); CALCIUM LEVEL 8.7 MG/DL (8.8-10.2); CARBON DIOXIDE LEVEL 24 MEQ/L (21-32); CHLORIDE LEVEL 108 MEQ/L (98-107); CHOLESTEROL LEVEL 149 MG/DL (<200); CHOLESTEROL RISK RATIO 3.547 (<5); CREATININE FOR GFR 1.27 MG/DL (0.55-1.30); GLUCOSE, FASTING 217 MG/DL (70-100); HDL CHOLESTEROL 42 MG/DL (>40); LDL CHOLESTEROL 52.8 MG/DL (<100); NON-HDL-C 107 MG/DL; POTASSIUM SERUM 4.8 MEQ/L (3.5-5.1); SODIUM LEVEL 141 MEQ/L (136-145); TOTAL PROTEIN 6.7 GM/DL (6.4-8.2); TRIGLYCERIDES LEVEL 271 MG/DL (<150)
[2017-12-17 13:23] LABS: ESTIMATED AVERAGE GLUCOSE 200 MG/DL (60-110); HEMOGLOBIN A1c 8.6 %
== END ==
LOC: M WUC 08:41
DX: E11.9 Type 2 diabetes mellitus without complications (principal)
CPT/HCPCS: 80053

== ENCOUNTER → 2018-01-14 | Outpatient (CLI) | payer MEDICARE, MEDICAID | LOC: M RAD 14:49 | DX: M54.5 Low back pain (principal) | CPT/HCPCS: 72148 ==

== ENCOUNTER → 2018-01-29 | Outpatient (REF) | payer MEDICARE ==
[2018-01-29 20:21] LABS: APPEARANCE, URINE CLOUDY (CLEAR); BACTERIA, URINE AUTO 2+ (NEGATIVE); BILIRUBIN, URINE AUTO NEGATIVE (NEGATIVE); BLOOD, URINE BLOOD NEGATIVE (NEGATIVE); COLOR, URINE YELLOW (YELLOW); GLUCOSE, URINE (UA) AUTO 2+ mg/dL (NEGATIVE); KETONE, URINE AUTO NEGATIVE (NEGATIVE); LEUKOCYTE ESTERASE, URINE AUTO 2+ (NEGATIVE); MUCUS, URINE SMALL (NEGATIVE); NITRITE, URINE AUTO NEGATIVE (NEGATIVE); PROTEIN, URINE AUTO NEGATIVE (NEGATIVE); RBC, URINE AUTO 1 /HPF (0-3); SPECIFIC GRAVITY URINE AUTO 1.006 (1.002-1.035); SQUAMOUS EPITHELIAL CELL UR AU 9 /HPF (0-6); UROBILINOGEN, URINE AUTO 0.2 mg/dL (0.0-2.0); WBC, URINE AUTO 39 /HPF (0-3)
== END ==
LOC: M SMT 10:08
DX: N30.00 Acute cystitis without hematuria (principal)
CPT/HCPCS: 81001

== ENCOUNTER → 2018-02-10 | Outpatient (CLI) | payer MEDICARE, MEDICAID | LOC: M PAIN 10:45 | DX: M79.10 Myalgia, unspecified site (principal); M54.5 Low back pain; E11.9 Type 2 diabetes mellitus without complications; I10 Essential (primary) hypertension; E78.5 Hyperlipidemia, unspecified; F32.9 Major depressive disorder, single episode, unspecified; F17.210 Nicotine dependence, cigarettes, uncomplicated; G47.00 Insomnia, unspecified; E66.01 Morbid (severe) obesity due to excess calories; Z68.38 Body mass index [BMI] 38.0-38.9, adult; Z79.4 Long term (current) use of insulin; Z79.899 Other long term (current) drug therapy; Z85.51 Personal history of malignant neoplasm of bladder | CPT/HCPCS: G0463 ==

== ENCOUNTER → 2018-02-28 | Outpatient (REF) | payer MEDICARE, MEDICAID | LOC: M SMT 13:27 | DX: N39.0 Urinary tract infection, site not specified (principal) | CPT/HCPCS: 87186 ==

== ENCOUNTER → 2018-03-17 | Outpatient (REF) | payer MEDICARE, MEDICAID ==
[2018-03-17 19:12] LABS: APPEARANCE, URINE CLEAR (CLEAR); BACTERIA, URINE AUTO NEGATIVE (NEGATIVE); BILIRUBIN, URINE AUTO NEGATIVE (NEGATIVE); BLOOD, URINE BLOOD NEGATIVE (NEGATIVE); COLOR, URINE YELLOW (YELLOW); GLUCOSE, URINE (UA) AUTO 2+ mg/dL (NEGATIVE); KETONE, URINE AUTO NEGATIVE (NEGATIVE); LEUKOCYTE ESTERASE, URINE AUTO NEGATIVE (NEGATIVE); NITRITE, URINE AUTO NEGATIVE (NEGATIVE); PROTEIN, URINE AUTO NEGATIVE (NEGATIVE); RBC, URINE AUTO 0 /HPF (0-3); SPECIFIC GRAVITY URINE AUTO 1.008 (1.002-1.035); SQUAMOUS EPITHELIAL CELL UR AU 0 /HPF (0-6); UROBILINOGEN, URINE AUTO 0.2 mg/dL (0.0-2.0); WBC, URINE AUTO 0 /HPF (0-3)
== END ==
LOC: M SMT 17:27
DX: N39.0 Urinary tract infection, site not specified (principal)
CPT/HCPCS: 81001

== ENCOUNTER → 2018-04-15 | Outpatient (REF) | payer MEDICARE, MEDICAID ==
[~2018-04-15] MED LIST changes: -LISI2.5T3 PO; +LISI2.5T5 PO
== END ==
LOC: M SMT 17:23
PROVIDERS: ATTEND Urology
DX: N39.0 Urinary tract infection, site not specified (principal)

== ENCOUNTER → 2018-07-04 | Outpatient (REF) | payer MEDICARE, MEDICAID ==
[2018-07-04 14:11] LABS: AMORPHOUS SEDIMENT SMALL (NEGATIVE); APPEARANCE, URINE CLOUDY (CLEAR); BACTERIA, URINE AUTO 1+ (NEGATIVE); BILIRUBIN, URINE AUTO NEGATIVE (NEGATIVE); BLOOD, URINE BLOOD 1+ (NEGATIVE); COLOR, URINE YELLOW (YELLOW); GLUCOSE, URINE (UA) AUTO 3+ mg/dL (NEGATIVE); KETONE, URINE AUTO NEGATIVE (NEGATIVE); LEUKOCYTE ESTERASE, URINE AUTO 3+ (NEGATIVE); MUCUS, URINE SMALL (NEGATIVE); NITRITE, URINE AUTO POSITIVE (NEGATIVE); PROTEIN, URINE AUTO NEGATIVE (NEGATIVE); RBC, URINE AUTO 18 /HPF (0-3); SPECIFIC GRAVITY URINE AUTO 1.016 (1.002-1.035); SQUAMOUS EPITHELIAL CELL UR AU 2 /HPF (0-6); UROBILINOGEN, URINE AUTO 0.2 mg/dL (0.0-2.0); WBC, URINE AUTO TNTC /HPF (0-3)
== END ==
LOC: M SMT 13:26
PROVIDERS: ATTEND Nurse Practitioner Family
DX: R30.0 Dysuria (principal)

== ENCOUNTER → 2018-08-15 | Outpatient (REF) | payer MEDICARE, MEDICAID ==
[~2018-08-15] MED LIST changes: +LISI-1046 PO; -LISI2.5T5 PO; +SERT-141 PO; -SERT50TA PO
[2018-08-15 14:05] LABS: APPEARANCE, URINE TURBID (CLEAR); BACTERIA, URINE AUTO NEGATIVE (NEGATIVE); BILIRUBIN, URINE AUTO NEGATIVE (NEGATIVE); BLOOD, URINE BLOOD 1+ (NEGATIVE); COLOR, URINE YELLOW (YELLOW); GLUCOSE, URINE (UA) AUTO 3+ mg/dL (NEGATIVE); KETONE, URINE AUTO NEGATIVE (NEGATIVE); LEUKOCYTE ESTERASE, URINE AUTO 3+ (NEGATIVE); NITRITE, URINE AUTO NEGATIVE (NEGATIVE); PROTEIN, URINE AUTO 1+ mg/dL (NEGATIVE); RBC, URINE AUTO 28 /HPF (0-3); SPECIFIC GRAVITY URINE AUTO 1.014 (1.002-1.035); SQUAMOUS EPITHELIAL CELL UR AU 19 /HPF (0-6); UROBILINOGEN, URINE AUTO 0.2 mg/dL (0.0-2.0); WBC, URINE AUTO TNTC /HPF (0-3)
== END ==
LOC: M SMT 13:26
PROVIDERS: ATTEND Nurse Practitioner Family
DX: N39.0 Urinary tract infection, site not specified (principal)

== ENCOUNTER → 2018-09-22 | Outpatient (REF) | payer MEDICARE, MEDICAID ==
[2018-09-22 17:01] LABS: HEMOGLOBIN A1c 12.5 %
[2018-09-22 18:53] LABS: ALBUMIN 3.3 GM/DL (3.2-5.2); BILIRUBIN,TOTAL 0.2 MG/DL (0.2-1.0); CALCIUM LEVEL 8.3 MG/DL (8.8-10.2); CHOLESTEROL RISK RATIO 3.466 (<5); CREATININE FOR GFR 1.33 MG/DL (0.55-1.30); GLOMERULAR FILTRATION RATE 42.5 (>45); POTASSIUM SERUM 4.5 MEQ/L (3.5-5.1); THYROID STIMULATING HORMONE 5.21 uIU/ML (0.358-3.740); TOTAL PROTEIN 6.9 GM/DL (6.4-8.2)
== END ==
LOC: M LAB REF 12:23
PROVIDERS: ATTEND Family Medicine Addiction Medicine
DX: E11.9 Type 2 diabetes mellitus without complications (principal)

== ENCOUNTER → 2018-10-17 | Outpatient (REF) | payer MEDICARE, MEDICAID ==
[2018-10-17 18:59] LABS: APPEARANCE, URINE HAZY (CLEAR); BACTERIA, URINE AUTO 2+ (NEGATIVE); BILIRUBIN, URINE AUTO NEGATIVE (NEGATIVE); BLOOD, URINE BLOOD 1+ (NEGATIVE); COLOR, URINE YELLOW (YELLOW); GLUCOSE, URINE (UA) AUTO 3+ mg/dL (NEGATIVE); KETONE, URINE AUTO NEGATIVE (NEGATIVE); LEUKOCYTE ESTERASE, URINE AUTO 3+ (NEGATIVE); NITRITE, URINE AUTO NEGATIVE (NEGATIVE); PROTEIN, URINE AUTO NEGATIVE (NEGATIVE); RBC, URINE AUTO 46 /HPF (0-3); SPECIFIC GRAVITY URINE AUTO 1.008 (1.002-1.035); SQUAMOUS EPITHELIAL CELL UR AU 4 /HPF (0-6); UROBILINOGEN, URINE AUTO 0.2 mg/dL (0.0-2.0); WBC, URINE AUTO TNTC /HPF (0-3)
== END ==
LOC: M SMT 17:15
PROVIDERS: ATTEND Nurse Practitioner Family
DX: N39.0 Urinary tract infection, site not specified (principal)

== ENCOUNTER → 2018-11-11 | Outpatient (CLI) | payer MEDICARE, MEDICAID ==
--- NOTE | 2018-11-11 17:01 | REPMRS ---
Patient History The patient states she has not had a clinical breast exam in over a year. Patient has a history of bladder cancer at 58. 3D TOMOSYNTHESIS WAS PERFORMED. The [facility] lifetime risk for breast cancer is 6.9%. Digital Mammo Screening Bilat: November 11, 2018 - Exam #: [id number] Bilateral CC and MLO view(s) were taken. Technologist: Laly Carr, Technologist Prior study comparison: August 26, 2015, digital woman screen mammo, performed at [facility]. July 29, 2013, digital bilateral screening mammo, performed at [facility]. FINDINGS: There are scattered fibroglandular densities. There has been no change in the appearance of the mammogram from the prior studies. There is a mild amount of residual fibroglandular tissue which is fairly symmetric. There is no interval development of dominant mass, architectural distortion, or clustered microcalcification suggestive of malignancy. Assessment: BI-RADS/ACR category 1 mammogram. Negative Mammogram. Recommendation Routine screening mammogram in 1 year (for women over age 40). This mammogram was interpreted with the aid of an FDA-approved computer-aided dectection system. Electronically Signed By: Az Lopez MD 11/11/18 0744
== END ==
LOC: M RAD 14:38
PROVIDERS: ATTEND Family Medicine Addiction Medicine
DX: Z12.31 Encounter for screening mammogram for malignant neoplasm of breast (principal); Z85.51 Personal history of malignant neoplasm of bladder

== ENCOUNTER → 2018-12-03 | Outpatient (CLI) | payer MEDICARE, MEDICAID ==
[2018-12-03 13:56] LABS: CALCIUM LEVEL 9.2 MG/DL (8.8-10.2); CREATININE FOR GFR 1.23 MG/DL (0.55-1.30); GLOMERULAR FILTRATION RATE 46.5 (>45); POTASSIUM SERUM 4.3 MEQ/L (3.5-5.1)
== END ==
LOC: M SMT 11:39
PROVIDERS: ATTEND Specialist
DX: C67.9 Malignant neoplasm of bladder, unspecified (principal)

== ENCOUNTER → 2019-02-19 | Outpatient (REF) | payer MEDICARE, MEDICAID ==
[2019-02-19 17:25] LABS: ALBUMIN 3.4 GM/DL (3.2-5.2); BILIRUBIN,TOTAL 0.3 MG/DL (0.2-1.0); CALCIUM LEVEL 8.7 MG/DL (8.8-10.2); CHOLESTEROL RISK RATIO 3.789 (<5); CREATININE FOR GFR 1.34 MG/DL (0.55-1.30); FREE T4 1.46 NG/DL (0.76-1.46); POTASSIUM SERUM 5.1 MEQ/L (3.5-5.1); THYROID STIMULATING HORMONE 1.62 uIU/ML (0.358-3.740); TOTAL PROTEIN 6.4 GM/DL (6.4-8.2)
== END ==
LOC: M LAB REF 16:38
PROVIDERS: ATTEND Nurse Practitioner Family
DX: Z00.01 Encounter for general adult medical examination with abnormal findings (principal); E07.9 Disorder of thyroid, unspecified; E78.00 Pure hypercholesterolemia, unspecified

== ENCOUNTER → 2019-06-22 | Outpatient (REF) | payer MEDICARE, MEDICAID ==
[2019-06-22 18:08] LABS: ALBUMIN 3.7 GM/DL (3.2-5.2); BILIRUBIN,TOTAL 0.4 MG/DL (0.2-1.0); CALCIUM LEVEL 9.3 MG/DL (8.8-10.2); CREATININE FOR GFR 1.12 MG/DL (0.55-1.30); GLOMERULAR FILTRATION RATE 51.7 (>45); POTASSIUM SERUM 4.7 MEQ/L (3.5-5.1); TOTAL PROTEIN 6.9 GM/DL (6.4-8.2)
[2019-06-22 18:57] LABS: HEMOGLOBIN A1c 8.4 %
== END ==
LOC: M LAB REF 17:14
PROVIDERS: ATTEND Physician Assistant
DX: E11.65 Type 2 diabetes mellitus with hyperglycemia (principal)

== ENCOUNTER → 2019-10-12 | Outpatient (REF) | payer MEDICARE, MEDICAID ==
[~2019-10-12] MED LIST changes: -LISI-1046 PO; +LISI2.5T2 PO
[2019-10-12 18:52] LABS: BASO # 0.1 10^3/uL (0.0-0.2); BASO % 0.8 % (0.0-1.0); EOS # 0.2 10^3/uL (0.0-0.5); EOS % 2.2 % (0.0-3.0); HEMATOCRIT 51.3 % (36.0-47.0); HEMOGLOBIN 16.9 g/dl (12.0-15.5); LYMPH # 1.2 10^3/uL (1.5-5.0); LYMPH % 13.1 % (24.0-44.0); MEAN CORPUSCULAR HEMOGLOBIN 29.4 pg (27.0-33.0); MEAN CORPUSCULAR HGB CONC 32.9 g/dl (32.0-36.5); MEAN CORPUSCULAR VOLUME 89.2 fl (80.0-96.0); MONO # 0.7 10^3/uL (0.0-0.8); MONO % 7.7 % (0.0-5.0); NEUTROPHILS # 6.9 10^3/uL (1.5-8.5); NEUTROPHILS % 75.5 % (36.0-66.0); PLATELET COUNT, AUTOMATED 222 10^3/uL (150-450); RED BLOOD COUNT 5.75 10^6/uL (4.00-5.40); WHITE BLOOD COUNT 9.2 10^3/uL (4.0-10.0)
[2019-10-12 19:23] LABS: ALBUMIN 3.7 GM/DL (3.2-5.2); BILIRUBIN,TOTAL 0.2 MG/DL (0.2-1.0); CALCIUM LEVEL 9.4 MG/DL (8.8-10.2); CHOLESTEROL RISK RATIO 4.651 (<5); CREATININE FOR GFR 1.25 MG/DL (0.55-1.30); GLOMERULAR FILTRATION RATE 45.5 (>45); POTASSIUM SERUM 5.3 MEQ/L (3.5-5.1); TOTAL PROTEIN 7.1 GM/DL (6.4-8.2)
[2019-10-12 20:20] LABS: HEMOGLOBIN A1c 9.7 %
== END ==
LOC: M LAB REF 17:49
PROVIDERS: ATTEND Physician Assistant
DX: F34.1 Dysthymic disorder (principal); N18.3 Chronic kidney disease, stage 3 (moderate); I12.9 Hypertensive chronic kidney disease with stage 1 through stage 4 chronic kidney disease, or unspecified chronic kidney disease; E11.65 Type 2 diabetes mellitus with hyperglycemia

== ENCOUNTER → 2020-01-20 | Outpatient (REF) | payer MEDICARE, MEDICAID | LOC: M SMT 17:13 | PROVIDERS: ATTEND Urology | DX: C67.9 Malignant neoplasm of bladder, unspecified (principal) ==

== ENCOUNTER → 2020-01-20 | Outpatient (REF) | payer MEDICARE, MEDICAID | LOC: M SMT 17:04 | PROVIDERS: ATTEND Urology | DX: C67.9 Malignant neoplasm of bladder, unspecified (principal) ==

== ENCOUNTER → 2020-06-29 | Outpatient (REF) | payer MEDICARE, MEDICAID ==
[~2020-06-29] MED LIST changes: -LISI-538 PO; +LISI20TA33 PO
[2020-06-29 17:30] LABS: BASO # 0.1 10^3/uL (0.0-0.2); BASO % 0.9 % (0.0-1.0); EOS # 0.2 10^3/uL (0.0-0.5); EOS % 2.5 % (0.0-3.0); HEMATOCRIT 48.6 % (36.0-47.0); HEMOGLOBIN 15.5 g/dl (12.0-15.5); LYMPH # 1.1 10^3/uL (1.5-5.0); LYMPH % 11.4 % (24.0-44.0); MEAN CORPUSCULAR HEMOGLOBIN 28.3 pg (27.0-33.0); MEAN CORPUSCULAR HGB CONC 31.9 g/dl (32.0-36.5); MEAN CORPUSCULAR VOLUME 88.8 fl (80.0-96.0); MONO # 0.8 10^3/uL (0.0-0.8); MONO % 8.3 % (2.0-8.0); NEUTROPHILS # 7.4 10^3/uL (1.5-8.5); NEUTROPHILS % 76.3 % (36.0-66.0); PLATELET COUNT, AUTOMATED 218 10^3/uL (150-450); RED BLOOD COUNT 5.47 10^6/uL (4.00-5.40); WHITE BLOOD COUNT 9.7 10^3/uL (4.0-10.0)
[2020-06-29 17:52] LABS: ALBUMIN 3.8 GM/DL (3.2-5.2); CALCIUM LEVEL 9.3 MG/DL (8.8-10.2); CREATININE FOR GFR 1.3 MG/DL (0.55-1.30); GLOMERULAR FILTRATION RATE 43.4 (>45); PHOSPHORUS LEVEL 4.2 MG/DL (2.5-4.9); POTASSIUM SERUM 4.9 MEQ/L (3.5-5.1); THYROID STIMULATING HORMONE 2.75 uIU/ML (0.358-3.740)
== END ==
LOC: M LAB REF 16:45
PROVIDERS: ATTEND Pediatrics
DX: N18.30 Chronic kidney disease, stage 3 unspecified (principal); E11.65 Type 2 diabetes mellitus with hyperglycemia; E03.9 Hypothyroidism, unspecified; E11.22 Type 2 diabetes mellitus with diabetic chronic kidney disease

== ENCOUNTER → 2021-02-03 | Outpatient (CLI) | payer MEDICARE, MEDICAID ==
[~2021-02-03] MED LIST changes: -LISI2.5T2 PO; +LISI2.5T9 PO
--- NOTE | 2021-02-03 16:33 | REP ---
INDICATION: PAIN IN LEFT KNEE COMPARISON: 08/02/2017 a five view exam TECHNIQUE: Three views FINDINGS: There is no change from the prior exam. There is no evidence of an osseous abnormality. IMPRESSION: No significant change from the prior exam. <Electronically signed by Jc Murphy > 02/03/21 [id number]
== END ==
LOC: M RAD 15:56
PROVIDERS: ATTEND Family Medicine Addiction Medicine
DX: M25.562 Pain in left knee (principal)

== ENCOUNTER → 2021-02-28 | Outpatient (REF) | payer MEDICARE, MEDICAID | LOC: M SMT 19:12 | PROVIDERS: ATTEND Urology | DX: Z85.51 Personal history of malignant neoplasm of bladder (principal); Z79.899 Other long term (current) drug therapy | CPT/HCPCS: 52000; 88108; G0463 ==

== ENCOUNTER → 2021-04-18 | Outpatient (REF) | payer MEDICARE, MEDICAID | LOC: M LAB REF 13:54 | PROVIDERS: ATTEND Physician Assistant | DX: D22.5 Melanocytic nevi of trunk (principal); L72.0 Epidermal cyst; D23.5 Other benign neoplasm of skin of trunk | CPT/HCPCS: 11103; 17000; 17110; 88305; G0463 ==

== ENCOUNTER → 2021-08-09 | Outpatient (CLI) | payer MEDICARE, MEDICAID | LOC: M RAD 10:57 | PROVIDERS: ATTEND Family Medicine Addiction Medicine | DX: M54.50 Low back pain, unspecified (principal); M51.36 Other intervertebral disc degeneration, lumbar region; I70.0 Atherosclerosis of aorta; M43.16 Spondylolisthesis, lumbar region ==

== ENCOUNTER → 2021-09-20 | Outpatient (REF) | payer MEDICARE, MEDICAID | LOC: M LAB REF 16:32 | PROVIDERS: ATTEND Nurse Practitioner Family | DX: R31.9 Hematuria, unspecified (principal); B96.20 Unspecified Escherichia coli [E. coli] as the cause of diseases classified elsewhere ==

== ENCOUNTER → 2021-09-25 | Outpatient (CLI) | payer MEDICAID, MEDICARE | LOC: M WHC 12:28 | PROVIDERS: ATTEND Family Medicine Addiction Medicine | DX: Z12.31 Encounter for screening mammogram for malignant neoplasm of breast (principal); Z78.0 Asymptomatic menopausal state; Z85.9 Personal history of malignant neoplasm, unspecified ==

== ENCOUNTER → 2021-11-10 | Outpatient (CLI) | payer MEDICARE | LOC: M RAD 09:35 | PROVIDERS: ATTEND Family Medicine Addiction Medicine | DX: R22.41 Localized swelling, mass and lump, right lower limb (principal) ==

== ENCOUNTER 2021-11-15 12:17 | Emergency (ER) | payer MEDICARE ==
[~2021-11-15] VITALS: Ht 149.9 cm; Wt 96.0 kg
[2021-11-15 15:15] LABS: BASO # 0.1 10^3/uL (0.0-0.2); BASO % 0.8 % (0.0-1.0); EOS # 0.3 10^3/uL (0.0-0.5); HEMATOCRIT 45.6 % (36.0-47.0); HEMOGLOBIN 14.2 g/dl (12.0-15.5); LYMPH # 0.8 10^3/uL (1.5-5.0); LYMPH % 8.2 % (24.0-44.0); MEAN CORPUSCULAR HEMOGLOBIN 27.8 pg (27.0-33.0); MEAN CORPUSCULAR HGB CONC 31.1 g/dl (32.0-36.5); MEAN CORPUSCULAR VOLUME 89.4 fl (80.0-96.0); MONO # 0.6 10^3/uL (0.0-0.8); MONO % 6.7 % (2.0-8.0); NEUTROPHILS # 7.6 10^3/uL (1.5-8.5); NEUTROPHILS % 80.9 % (36.0-66.0); PLATELET COUNT, AUTOMATED 168 10^3/uL (150-450); WHITE BLOOD COUNT 9.4 10^3/uL (4.0-10.0)
[2021-11-15 18:35] LABS: ALBUMIN 3.6 GM/DL (3.2-5.2); ALT/SGPT 24 U/L (12-78); BILIRUBIN,DIRECT < 0.1 MG/DL (0.0-0.2); BILIRUBIN,TOTAL 0.3 MG/DL (0.2-1.0); BLOOD UREA NITROGEN 20 MG/DL (7-18); CARBON DIOXIDE LEVEL 24 MEQ/L (21-32); CHLORIDE LEVEL 109 MEQ/L (98-107); CREATININE FOR GFR 1.18 MG/DL (0.55-1.30); GLOMERULAR FILTRATION RATE 48.3 (>45); GLUCOSE, FASTING 165 MG/DL (70-100); NT-PRO BNP 368 PG/ML (<125); POTASSIUM SERUM 5.4 MEQ/L (3.5-5.1); SODIUM LEVEL 141 MEQ/L (136-145); THYROXINE (T4) 12.4 UG/DL (4.5-12.0); TOTAL PROTEIN 6.8 GM/DL (6.4-8.2)
[2021-11-15] MEDS ORDERED: FURO20TA2 PO (18:38)
[2021-11-15] MEDS ORDERED: FUTU-110 XX (18:43)
[2021-11-15 18:46] VITALS: BP 154/74
== END 2021-11-15 18:53 | disposition home or self-care (01) ==
LOC: M ED 12:17
DX: R60.9 Edema, unspecified (principal); R06.02 Shortness of breath; E11.9 Type 2 diabetes mellitus without complications; I10 Essential (primary) hypertension; J44.9 Chronic obstructive pulmonary disease, unspecified; E78.5 Hyperlipidemia, unspecified; Z79.899 Other long term (current) drug therapy; Z79.4 Long term (current) use of insulin; F17.200 Nicotine dependence, unspecified, uncomplicated

== ENCOUNTER → 2022-03-06 | Outpatient (REF) | payer MEDICARE, MEDICAID ==
[~2022-03-06] MED LIST changes: +FURO20TA2 PO; +FUTU-110 XX; +SIMV-253 PO; -ZOCO20TA PO
[2022-03-06 21:33] LABS: CREATININE FOR GFR 1.36 MG/DL (0.55-1.30); GLOMERULAR FILTRATION RATE 40.9 (>39); POTASSIUM SERUM 5.7 MEQ/L (3.5-5.1)
== END ==
LOC: M LAB REF 20:22
PROVIDERS: ATTEND Family Medicine Addiction Medicine
DX: E87.5 Hyperkalemia (principal)

== ENCOUNTER → 2022-03-09 | Outpatient (REF) | payer MEDICARE, MEDICAID | LOC: M LAB REF 20:44 | PROVIDERS: ATTEND Family Medicine Addiction Medicine | DX: R31.0 Gross hematuria (principal) ==

== ENCOUNTER → 2022-03-16 | Outpatient (REF) | payer MEDICARE, MEDICAID | LOC: M LAB REF 17:01 → M SMT 17:01 | PROVIDERS: ATTEND Urology | DX: Z85.51 Personal history of malignant neoplasm of bladder (principal) ==

== ENCOUNTER 2022-04-09 15:43 | Inpatient (IN) | payer MEDICARE, MEDICAID ==
[~2022-04-09] VITALS: Ht 149.9 cm; Wt 94.7 kg
[2022-04-09] MEDS ORDERED: IPRATROPIUM 0.5MG/ALBUTEROL 2.5MG INH SOL UD 3ML (DUONEB) NEB ONE (16:40)
[2022-04-09] MEDS ORDERED: LIDOCAINE 2% 5ML JELLY UROJET TOP ONE (16:40)
[2022-04-09 17:36] LABS: BASO # 0.1 10^3/uL (0.0-0.2); BASO % 0.5 % (0.0-1.0); EOS # 0.1 10^3/uL (0.0-0.5); EOS % 1.2 % (0.0-3.0); HEMATOCRIT 46.4 % (36.0-47.0); HEMOGLOBIN 14.6 g/dl (12.0-15.5); LYMPH # 0.4 10^3/uL (1.5-5.0); LYMPH % 4.1 % (24.0-44.0); MEAN CORPUSCULAR HEMOGLOBIN 27.7 pg (27.0-33.0); MEAN CORPUSCULAR HGB CONC 31.5 g/dl (32.0-36.5); MEAN CORPUSCULAR VOLUME 87.9 fl (80.0-96.0); MONO # 0.2 10^3/uL (0.0-0.8); NEUTROPHILS # 9.4 10^3/uL (1.5-8.5); NEUTROPHILS % 91.5 % (36.0-66.0); PLATELET COUNT, AUTOMATED 185 10^3/uL (150-450); RED BLOOD COUNT 5.28 10^6/uL (4.00-5.40); WHITE BLOOD COUNT 10.3 10^3/uL (4.0-10.0)
[2022-04-09 18:01] LABS: ALBUMIN 3.6 G/DL (3.2-5.2); ALKALINE PHOSPHATASE 153 U/L (46-116); ALT/SGPT 24 U/L (7.0-40); AST/SGOT 25 U/L (<34); BILIRUBIN,DIRECT < 0.1 MG/DL (<0.4); BILIRUBIN,TOTAL 0.3 MG/DL (0.3-1.2); BLOOD UREA NITROGEN 21 MG/DL (9-23); CALCIUM LEVEL 8.5 MG/DL (8.3-10.6); CARBON DIOXIDE LEVEL 28 MMOL/L (20-31); CHLORIDE LEVEL 102 MMOL/L (98-107); CK-MB VALUE MASS < 1.0 NG/ML (<3.6); CREATININE FOR GFR 1.05 MG/DL (0.55-1.30); GLOMERULAR FILTRATION RATE 55.2 (>39); GLUCOSE, FASTING 278 MG/DL (74-106); POTASSIUM SERUM 5.4 MMOL/L (3.5-5.1); SODIUM LEVEL 137 MMOL/L (136-145); TOTAL PROTEIN 6.6 G/DL (5.7-8.2)
[2022-04-09 18:05] LABS: THYROID STIMULATING HORMONE 1.666 uIU/ML (0.55-4.78); THYROXINE (T4) 15.3 UG/DL (4.5-10.9)
[2022-04-09 18:07] LABS: CPK CREATINE PHOSPHOKINASE 53 U/L (34-145); MB/CK RELATIVE INDEX 1.88 (< OR =4)
[2022-04-09 18:13] LABS: RSV AMPLIFICATION NEGATIVE (NEGATIVE)
[2022-04-09] MEDS ORDERED: ISOVUE-370 76% 100ML VIAL As Ordered ONE (18:15)
[2022-04-09] MEDS ORDERED: NICOTINE 14 MG/24 HR TRANSDERMAL TD ONE (18:55)
[2022-04-09] MEDS ORDERED: FUROSEMIDE 100MG/10ML VIAL (J1940) IV ONE (19:00)
[2022-04-09 19:18] LABS: CK-MB VALUE MASS < 1.0 NG/ML (<3.6)
[2022-04-09 19:23] LABS: CPK CREATINE PHOSPHOKINASE 32 U/L (34-145); MB/CK RELATIVE INDEX 3.12 (< OR =4)
[2022-04-09] MEDS ORDERED: LISI30TA4 PO (20:58)
[2022-04-09] MEDS ORDERED: SERT50TA29 PO (20:58)
[2022-04-09] MEDS ORDERED: LEVE1INJ5 SQ (20:58)
[2022-04-09] MEDS ORDERED: CARV25TA PO (20:58)
[2022-04-09] MEDS ORDERED: METH-855 PO (20:58)
[2022-04-09] MEDS ORDERED: FURO20TA2 PO (20:58)
[2022-04-09] MEDS ORDERED: HUMA100I5 SQ (20:58)
[2022-04-09] MEDS ORDERED: AMLO1TAB25 PO (20:58)
[2022-04-09] MEDS ORDERED: ALBU8.5H INH (20:58)
[2022-04-09] MEDS ORDERED: SIMV20TA22 PO (20:58)
[2022-04-09] MEDS ORDERED: ASPI-226 PO (20:58)
[2022-04-09] MEDS ORDERED: LEVO50TA5 PO (20:58)
[2022-04-09] MEDS ORDERED: TRUL0.5I SQ (20:58)
[2022-04-09] MEDS ORDERED: BUPR1FIL3 SL (20:58)
[2022-04-09] MEDS ORDERED: HOME MED LIST COMPLETE! XX SCH (21:00)
[2022-04-09] MEDS ORDERED: GLUCAGON INJ 1MG VIAL SC PRN (22:45)
[2022-04-09] MEDS ORDERED: GLUCOSE 4GM CHEW TABLET PO PRN (22:45)
[2022-04-09] MEDS ORDERED: ALBUTEROL SULFATE 2.5 MG/0.5 ML INH NEB SOLN INH PRN (22:45)
[2022-04-09] MEDS ORDERED: DEXTROSE 50% 50 ML SYRINGE IV PRN (22:45)
[2022-04-09] MEDS ORDERED: FOSFOMYCIN TROMETHAMINE 3 GM POWDER PACKET (MONUROL) PO ONE (23:55)
[2022-04-10 02:02] LABS: CALCIUM LEVEL 8.6 MG/DL (8.3-10.6); CREATININE FOR GFR 1.05 MG/DL (0.55-1.30); GLOMERULAR FILTRATION RATE 55.2 (>39); POTASSIUM SERUM 4.9 MMOL/L (3.5-5.1)
[2022-04-10] MEDS: LEVEMIR (INSULIN DETEMIR) 1 UNITS/0.01ML SC SCH ×3 (02:33→21:02)
[2022-04-10] MEDS: CARVedilol 12.5 MG TAB PO SCH ×3 (02:35→21:04)
[2022-04-10] MEDS: BUPRENORPHINE/NALOXONE 8-2MG SUBLINGUAL TABLET(SUBOXONE) SL SCH ×2 (02:37→21:02)
[2022-04-10] MEDS: methylPREDNISolone 40MG 1ML VIAL IV SCH ×2 (02:45→06:00)
[2022-04-10] MEDS: IPRATROPIUM 0.5MG/ALBUTEROL 2.5MG INH SOL UD 3ML (DUONEB) INH SCH ×4 (03:01→20:24)
[2022-04-10] MEDS: LEVOTHYROXINE 50MCG TABLET (0.05MG) PO SCH (06:00)
[2022-04-10 07:16] LABS: CALCIUM LEVEL 8.3 MG/DL (8.3-10.6); CREATININE FOR GFR 1.12 MG/DL (0.55-1.30); GLOMERULAR FILTRATION RATE 51.2 (>39); POTASSIUM SERUM 5.1 MMOL/L (3.5-5.1)
[2022-04-10 07:43] LABS: INR 0.93; PROTHROMBIN TIME 12.7 SECONDS (12.5-14.5)
[2022-04-10 07:44] LABS: PARTIAL THROMBOPLASTIN TIME 28.9 SECONDS (24.8-34.2)
[2022-04-10] MEDS: ASPIRIN 81MG ENTERIC TABLET PO SCH (09:26)
[2022-04-10] MEDS: SERTRALINE HCL 50 MG TAB PO SCH (09:27)
[2022-04-10] MEDS: INSULIN LISPRO (NovoLOG) PER UNIT SC SCH ×4 (09:28→21:03)
[2022-04-10 09:39] LABS: HEPATITIS B SURFACE ANTIBODY NEGATIVE (POSITIVE)
[2022-04-10 09:51] LABS: HEPATITIS B SURFACE ANTIGEN NEGATIVE (NEGATIVE)
[2022-04-10 10:12] LABS: HEPATITIS C VIRUS ABY INDEX 0.1 INDEX (<0.8)
[2022-04-10] MEDS: AZITHROMYCIN 250MG TABLET PO SCH (14:48)
[2022-04-10] MEDS: NICOTINE 14 MG/24 HR TRANSDERMAL TD SCH (14:48)
[2022-04-10] MEDS: SIMVASTATIN 20 MG TAB PO SCH (14:49)
[2022-04-10] MEDS: HEPARIN SOD (PORCINE) 5000UNITS/ML 1ML VIAL/SYRINGE SC SCH ×2 (14:51→21:03)
[2022-04-10 15:48] VITALS: BP 128/62
[2022-04-10] MEDS ORDERED: PROHANCE 279.3MG/ML 15ML VIAL As Ordered ONE (17:02)
[2022-04-10] MEDS ORDERED: methylPREDNISolone 40MG 1ML VIAL IV ONE (18:00)
[2022-04-10 20:00] VITALS: BP 122/54
[2022-04-10] MEDS ORDERED: PILL CUTTER 1 EACH XX ONE (20:59)
[2022-04-10] MEDS: ACETAMINOPHEN TAB 650MG DOSE (2X325MG) PO PRN (21:04)
[2022-04-11] VITALS (7 sets, daily range): BP systolic 119–162; BP diastolic 56–84
[2022-04-11] MEDS: IPRATROPIUM 0.5MG/ALBUTEROL 2.5MG INH SOL UD 3ML (DUONEB) INH SCH ×4 (00:48→19:30)
[2022-04-11 05:17] LABS: BASO % 0.2 % (0.0-1.0); HEMATOCRIT 42.9 % (36.0-47.0); HEMOGLOBIN 13.2 g/dl (12.0-15.5); LYMPH # 0.5 10^3/uL (1.5-5.0); MEAN CORPUSCULAR HEMOGLOBIN 27.3 pg (27.0-33.0); MEAN CORPUSCULAR HGB CONC 30.8 g/dl (32.0-36.5); MEAN CORPUSCULAR VOLUME 88.8 fl (80.0-96.0); MONO # 0.4 10^3/uL (0.0-0.8); MONO % 3.2 % (2.0-8.0); NEUTROPHILS # 11.6 10^3/uL (1.5-8.5); NEUTROPHILS % 91.8 % (36.0-66.0); PLATELET COUNT, AUTOMATED 183 10^3/uL (150-450); RED BLOOD COUNT 4.83 10^6/uL (4.00-5.40); WHITE BLOOD COUNT 12.6 10^3/uL (4.0-10.0)
[2022-04-11 05:57] LABS: ALBUMIN 3.1 G/DL (3.2-5.2); BILIRUBIN,TOTAL 0.3 MG/DL (0.3-1.2); CALCIUM LEVEL 8.9 MG/DL (8.3-10.6); CHOLESTEROL RISK RATIO 3.02 (<5); CREATININE FOR GFR 1.27 MG/DL (0.55-1.30); GLOMERULAR FILTRATION RATE 44.3 (>39); HDL CHOLESTEROL 41.6 MG/DL (>40); LDL CHOLESTEROL 62.6 MG/DL (<100); POTASSIUM SERUM 4.7 MMOL/L (3.5-5.1); TOTAL PROTEIN 5.7 G/DL (5.7-8.2)
[2022-04-11] MEDS: LEVOTHYROXINE 50MCG TABLET (0.05MG) PO SCH (06:07)
[2022-04-11] MEDS: HEPARIN SOD (PORCINE) 5000UNITS/ML 1ML VIAL/SYRINGE SC SCH ×3 (06:07→21:15)
[2022-04-11 06:08] LABS: HEPATITIS A IgG TOTAL Positive (Negative); HEPATITIS B CORE ANTIBODY IGG Negative (Negative)
[2022-04-11] MEDS: INSULIN LISPRO (NovoLOG) PER UNIT SC SCH ×5 (08:22→21:14)
[2022-04-11] MEDS: LEVEMIR (INSULIN DETEMIR) 1 UNITS/0.01ML SC SCH ×2 (08:22→21:14)
[2022-04-11] MEDS: predniSONE 20 MG TAB PO SCH (08:24)
[2022-04-11] MEDS: AZITHROMYCIN 250MG TABLET PO SCH (08:24)
[2022-04-11] MEDS: CARVedilol 12.5 MG TAB PO SCH ×2 (08:24→21:13)
[2022-04-11] MEDS: SERTRALINE HCL 50 MG TAB PO SCH (08:24)
[2022-04-11] MEDS: ASPIRIN 81MG ENTERIC TABLET PO SCH (08:24)
[2022-04-11] MEDS: SIMVASTATIN 20 MG TAB PO SCH (08:25)
[2022-04-11] MEDS: NICOTINE 14 MG/24 HR TRANSDERMAL TD SCH (08:26)
[2022-04-11] MEDS ORDERED: PREVNAR-20 VACCINE 0.5ML SYRINGE IM.IMMUN ONE (09:00)
[2022-04-11] MEDS ORDERED: FUROSEMIDE 40MG/4ML VIAL (J1940) IV SCH ×2 (09:00)
[2022-04-11] MEDS: ACETAMINOPHEN TAB 650MG DOSE (2X325MG) PO PRN (12:30)
[2022-04-11] MEDS ORDERED: ISOVUE-370 76% 100ML VIAL As Ordered ONE (15:49)
[2022-04-11] MEDS: BUPRENORPHINE/NALOXONE 8-2MG SUBLINGUAL TABLET(SUBOXONE) SL SCH (21:13)
[2022-04-12] MEDS: IPRATROPIUM 0.5MG/ALBUTEROL 2.5MG INH SOL UD 3ML (DUONEB) INH SCH ×3 (01:08→13:12)
[2022-04-12 04:33] VITALS: BP 139/74
[2022-04-12 04:59] LABS: BASO % 0.1 % (0.0-1.0); EOS % 0.1 % (0.0-3.0); HEMATOCRIT 46.7 % (36.0-47.0); HEMOGLOBIN 14.1 g/dl (12.0-15.5); LYMPH # 0.9 10^3/uL (1.5-5.0); MEAN CORPUSCULAR HEMOGLOBIN 26.8 pg (27.0-33.0); MEAN CORPUSCULAR HGB CONC 30.2 g/dl (32.0-36.5); MEAN CORPUSCULAR VOLUME 88.6 fl (80.0-96.0); MONO # 0.9 10^3/uL (0.0-0.8); MONO % 8.3 % (2.0-8.0); NEUTROPHILS # 9.4 10^3/uL (1.5-8.5); NEUTROPHILS % 82.8 % (36.0-66.0); PLATELET COUNT, AUTOMATED 176 10^3/uL (150-450); RED BLOOD COUNT 5.27 10^6/uL (4.00-5.40); WHITE BLOOD COUNT 11.3 10^3/uL (4.0-10.0)
[2022-04-12 05:58] LABS: ALBUMIN 3.5 G/DL (3.2-5.2); BILIRUBIN,TOTAL 0.3 MG/DL (0.3-1.2); CALCIUM LEVEL 9.1 MG/DL (8.3-10.6); CREATININE FOR GFR 1.23 MG/DL (0.55-1.30); POTASSIUM SERUM 4.3 MMOL/L (3.5-5.1); TOTAL PROTEIN 6.3 G/DL (5.7-8.2)
[2022-04-12] MEDS: LEVOTHYROXINE 50MCG TABLET (0.05MG) PO SCH (06:24)
[2022-04-12] MEDS: HEPARIN SOD (PORCINE) 5000UNITS/ML 1ML VIAL/SYRINGE SC SCH (06:25)
[2022-04-12 07:00] VITALS: BP 140/63
[2022-04-12 07:30] VITALS: BP 140/63
[2022-04-12] MEDS: INSULIN LISPRO (NovoLOG) PER UNIT SC SCH ×3 (07:30→12:57)
[2022-04-12] MEDS ORDERED: LEVEMIR (INSULIN DETEMIR) 1 UNITS/0.01ML SC SCH (09:00)
[2022-04-12] MEDS ORDERED: MIRALAX *UNIT DOSE* 17GM PACKET PO ONE (09:35)
[2022-04-12] MEDS: ASPIRIN 81MG ENTERIC TABLET PO SCH (09:37)
[2022-04-12] MEDS: NICOTINE 14 MG/24 HR TRANSDERMAL TD SCH (09:37)
[2022-04-12] MEDS: CARVedilol 12.5 MG TAB PO SCH (09:39)
[2022-04-12] MEDS: AZITHROMYCIN 250MG TABLET PO SCH (09:40)
[2022-04-12] MEDS: SIMVASTATIN 20 MG TAB PO SCH (09:41)
[2022-04-12] MEDS: SERTRALINE HCL 50 MG TAB PO SCH (09:41)
[2022-04-12] MEDS: predniSONE 20 MG TAB PO SCH (09:42)
[2022-04-12] MEDS ORDERED: PRED20TA PO ×2 (11:46→11:48)
[2022-04-12] MEDS ORDERED: LEVE1INJ5 SQ (11:46)
[2022-04-12] MEDS ORDERED: SPIR1CAP INH (11:46)
[2022-04-12] MEDS ORDERED: AMOX875T2 PO (11:47)
[2022-04-12] MEDS ORDERED: IPRA0.00 INH (11:47)
[2022-04-12] MEDS ORDERED: COMBAER6 INH (11:49)
== END 2022-04-12 14:00 | disposition home health service (06) | DRG 189 ==
LOC: EDBD 15:43 → M ED 15:43 → M ED INP 22:29 → ENRESERV 04-10 15:07 → M PCU 04-10 16:10
PROVIDERS: ADMIT Internal Medicine; ATTEND Internal Medicine
DX: J96.01 Acute respiratory failure with hypoxia (principal); J44.1 Chronic obstructive pulmonary disease with (acute) exacerbation; E66.2 Morbid (severe) obesity with alveolar hypoventilation; F17.210 Nicotine dependence, cigarettes, uncomplicated; Z85.51 Personal history of malignant neoplasm of bladder; I50.810 Right heart failure, unspecified; I27.81 Cor pulmonale (chronic); Z90.79 Acquired absence of other genital organ(s); R33.9 Retention of urine, unspecified; E11.649 Type 2 diabetes mellitus with hypoglycemia without coma; F32.A Depression, unspecified; I11.9 Hypertensive heart disease without heart failure; B96.20 Unspecified Escherichia coli [E. coli] as the cause of diseases classified elsewhere; R82.71 Bacteriuria; E78.00 Pure hypercholesterolemia, unspecified; E03.9 Hypothyroidism, unspecified; Z79.891 Long term (current) use of opiate analgesic; Z90.49 Acquired absence of other specified parts of digestive tract; Z79.82 Long term (current) use of aspirin; Z79.4 Long term (current) use of insulin; Z79.890 Hormone replacement therapy; Z79.899 Other long term (current) drug therapy; E87.5 Hyperkalemia; Z20.822 Contact with and (suspected) exposure to COVID-19; D35.00 Benign neoplasm of unspecified adrenal gland; I25.10 Atherosclerotic heart disease of native coronary artery without angina pectoris; K74.60 Unspecified cirrhosis of liver; I48.91 Unspecified atrial fibrillation

== ENCOUNTER → 2022-05-14 | Outpatient (REF) | payer MEDICARE, MEDICAID ==
[~2022-05-14] MED LIST changes: +ALBU8.5H INH; +AMLO1TAB25 PO; +AMOX875T2 PO; +ASPI-226 PO; +BUPR1FIL3 SL; +CARV25TA PO; +COMBAER6 INH; +HUMA100I5 SQ; +IPRA0.00 INH; +LEVE1INJ5 SQ; +LEVO50TA5 PO; +LISI30TA4 PO; +METH-855 PO; +PRED20TA PO; +SERT50TA29 PO; +SIMV20TA22 PO; +SPIR1CAP INH; +TRUL0.5I SQ
[2022-05-14 18:01] LABS: ALBUMIN 3.4 G/DL (3.2-5.2); BILIRUBIN,TOTAL 0.3 MG/DL (0.3-1.2); CALCIUM LEVEL 8.9 MG/DL (8.3-10.6); CREATININE FOR GFR 1.14 MG/DL (0.55-1.30); GLOMERULAR FILTRATION RATE 50.2 (>39); POTASSIUM SERUM 4.2 MMOL/L (3.5-5.1); TOTAL PROTEIN 6.3 G/DL (5.7-8.2)
== END ==
LOC: M LAB REF 16:31
PROVIDERS: ATTEND Family Medicine Addiction Medicine
DX: I50.9 Heart failure, unspecified (principal)

== ENCOUNTER → 2022-06-13 | Outpatient (CLI) | payer MEDICAID, MEDICARE | LOC: M CARPUL 14:36 | PROVIDERS: ATTEND Family Medicine Addiction Medicine | DX: R06.09 Other forms of dyspnea (principal); I34.0 Nonrheumatic mitral (valve) insufficiency ==

== ENCOUNTER → 2022-08-01 | Outpatient (REF) | payer MEDICARE ==
[~2022-08-01] MED LIST changes: +ALBU2.5V10 INH; +BUDE0.5S6 INH; +CEFD300C PO; +CVS1CAP2 PO; +DOXY100T PO; +INSU100I6 SC; +INSU100I6 SQ; +IPRA0.00 NEB; -LEVE1INJ5 SQ; +MED REC COMMENT; +METO25TA PO; +MONT-5 PO; +PRED10TA2 PO; +[UNRECOGNIZED DRUG - REMARK]
[2022-08-01 17:00] LABS: BASO # 0.1 10^3/uL (0.0-0.2); BASO % 0.4 % (0.0-1.0); EOS # 0.1 10^3/uL (0.0-0.5); HEMOGLOBIN 14.9 g/dl (12.0-15.5); LYMPH # 0.6 10^3/uL (1.5-5.0); LYMPH % 4.7 % (24.0-44.0); MEAN CORPUSCULAR HEMOGLOBIN 27.1 pg (27.0-33.0); MEAN CORPUSCULAR HGB CONC 30.4 g/dl (32.0-36.5); MEAN CORPUSCULAR VOLUME 89.1 fl (80.0-96.0); MONO # 0.4 10^3/uL (0.0-0.8); MONO % 3.4 % (2.0-8.0); PLATELET COUNT, AUTOMATED 171 10^3/uL (150-450); WHITE BLOOD COUNT 12.2 10^3/uL (4.0-10.0)
[2022-08-01 17:48] LABS: HEMOGLOBIN A1c 8.4 % (4.0-6.0)
[2022-08-01 22:06] LABS: ALBUMIN 3.9 G/DL (3.2-5.2); BILIRUBIN,TOTAL 0.4 MG/DL (0.3-1.2); CALCIUM LEVEL 8.9 MG/DL (8.3-10.6); CHOLESTEROL RISK RATIO 2.68 (<5); CREATININE FOR GFR 1.09 MG/DL (0.55-1.30); GLOMERULAR FILTRATION RATE 52.8 (>39); LDL CHOLESTEROL 54.6 MG/DL (<100); MAGNESIUM LEVEL 2.3 MG/DL (1.8-2.4); POTASSIUM SERUM 7.1 MMOL/L (3.5-5.1); TOTAL PROTEIN 6.4 G/DL (5.7-8.2)
== END ==
LOC: M LAB REF 16:16
PROVIDERS: ATTEND Family Medicine Addiction Medicine
DX: N28.9 Disorder of kidney and ureter, unspecified (principal); E11.9 Type 2 diabetes mellitus without complications

== ENCOUNTER → 2022-08-07 | Outpatient (REF) | payer MEDICARE ==
[2022-08-07 19:37] LABS: BASO # 0.1 10^3/uL (0.0-0.2); BASO % 0.4 % (0.0-1.0); EOS # 0.1 10^3/uL (0.0-0.5); EOS % 1.1 % (0.0-3.0); HEMATOCRIT 50.3 % (36.0-47.0); HEMOGLOBIN 15.4 g/dl (12.0-15.5); MEAN CORPUSCULAR HEMOGLOBIN 27.1 pg (27.0-33.0); MEAN CORPUSCULAR HGB CONC 30.6 g/dl (32.0-36.5); MEAN CORPUSCULAR VOLUME 88.4 fl (80.0-96.0); MONO % 8.5 % (2.0-8.0); NEUTROPHILS # 9.7 10^3/uL (1.5-8.5); NEUTROPHILS % 80.4 % (36.0-66.0); PLATELET COUNT, AUTOMATED 180 10^3/uL (150-450); RED BLOOD COUNT 5.69 10^6/uL (4.00-5.40); WHITE BLOOD COUNT 12.1 10^3/uL (4.0-10.0)
[2022-08-07 20:14] LABS: ALBUMIN 3.4 G/DL (3.2-5.2); BILIRUBIN,TOTAL 0.3 MG/DL (0.3-1.2); CALCIUM LEVEL 8.2 MG/DL (8.3-10.6); CREATININE FOR GFR 1.37 MG/DL (0.55-1.30); GLOMERULAR FILTRATION RATE 40.6 (>39); POTASSIUM SERUM 4.7 MMOL/L (3.5-5.1); TOTAL PROTEIN 5.8 G/DL (5.7-8.2)
== END ==
LOC: M LAB REF 17:44
PROVIDERS: ATTEND Family Medicine Addiction Medicine
DX: E87.5 Hyperkalemia (principal); D72.829 Elevated white blood cell count, unspecified

== ENCOUNTER → 2022-11-09 | Outpatient (REF) | payer MEDICARE, MEDICAID ==
[2022-11-09 18:46] LABS: HEMOGLOBIN A1c 10.3 % (4.0-6.0)
[2022-11-09 19:07] LABS: ALBUMIN 3.5 G/DL (3.2-5.2); ALKALINE PHOSPHATASE 149 U/L (46-116); ALT/SGPT < 9 U/L (7.0-40); AST/SGOT 8 U/L (<34); BILIRUBIN,TOTAL 0.4 MG/DL (0.3-1.2); BLOOD UREA NITROGEN 37 MG/DL (9-23); CALCIUM LEVEL 9.8 MG/DL (8.3-10.6); CARBON DIOXIDE LEVEL 30 MMOL/L (20-31); CHLORIDE LEVEL 100 MMOL/L (98-107); CHOLESTEROL LEVEL 142 MG/DL (<200); CREATININE FOR GFR 1.24 MG/DL (0.55-1.30); GLOMERULAR FILTRATION RATE 45.5 (>39); GLUCOSE, FASTING 183 MG/DL (74-106); HDL CHOLESTEROL 41.7 MG/DL (>40); LDL CHOLESTEROL 59.7 MG/DL (<100); NON-HDL-C 100.3 MG/DL; POTASSIUM SERUM 4.8 MMOL/L (3.5-5.1); SODIUM LEVEL 137 MMOL/L (136-145); TOTAL PROTEIN 6.2 G/DL (5.7-8.2); TRIGLYCERIDES LEVEL 203 MG/DL (<150)
[2022-11-09 19:08] LABS: THYROID STIMULATING HORMONE 2.336 uIU/ML (0.55-4.78)
== END ==
LOC: M LAB REF 16:24
PROVIDERS: ATTEND Family Medicine Addiction Medicine
DX: E11.9 Type 2 diabetes mellitus without complications (principal)

== ENCOUNTER → 2022-11-15 | Outpatient (CLI) | payer MEDICARE, MEDICAID ==
[2022-11-15 13:27] LABS: INR 0.89; PROTHROMBIN TIME 12.2 SECONDS (12.5-14.5)
[2022-11-15 14:11] LABS: IRON (FE) 46 UG/DL (50-170); PERCENT SATURATION 14.7 % (13.2-45.0); TOTAL IRON BINDING CAPACITY 313 UG/DL (250-425)
[2022-11-15 14:13] LABS: IMMUNOGLOBULIN A 197.2 MG/DL (40-350)
[2022-11-15 14:25] LABS: HEPATITIS B SURFACE ANTIGEN NEGATIVE (NEGATIVE)
[2022-11-15 14:46] LABS: HEPATITIS C VIRUS ABY INDEX 0.06 INDEX (<0.8)
[2022-11-15 14:47] LABS: HEPATITIS B CORE ANTIBODY IGM NEGATIVE (NEGATIVE)
[2022-11-19 16:08] LABS: ANCA-ATYPICAL <1:20 titer (Neg:<1:20); ANTI-MITOCHONDRIAL ANTIBODY <20.0 Units (0.0-20.0); ANTINUCLEAR ANTIBODIES DIRECT Negative (Negative); CYTOPLASMIC NEUTROP AB ANCA-C <1:20 titer (Neg:<1:20); LIVER-KIDNEY MICROSOMAL ABY <20.1 Units (0.0-20.0); PERINUCLEAR AB ANCA-P <1:20 titer (Neg:<1:20); TISSUE TRANSGLUTAMINASE IgA <2 U/mL (0-3)
== END ==
LOC: M LAB 12:11
PROVIDERS: ATTEND Internal Medicine Gastroenterology
DX: K74.60 Unspecified cirrhosis of liver (principal)

== ENCOUNTER → 2023-03-19 | Outpatient (CLI) | payer MEDICARE, MEDICAID ==
[~2023-03-19] MED LIST changes: -OXYB5TAB10 PO; +OXYB5TAB11 PO
== END ==
LOC: M RAD 15:28
PROVIDERS: ATTEND Internal Medicine Cardiovascular Disease
DX: R60.0 Localized edema (principal)

== ENCOUNTER → 2023-04-22 | Outpatient (REF) | payer MEDICARE, MEDICAID | LOC: M SMT 17:35 | PROVIDERS: ATTEND Urology | DX: Z85.51 Personal history of malignant neoplasm of bladder (principal) ==

== ENCOUNTER → 2023-05-13 | Outpatient (REF) | payer MEDICARE, MEDICAID ==
[2023-05-13 18:52] LABS: HEMOGLOBIN A1c 11.4 % (4.0-6.0)
[2023-05-13 20:41] LABS: ALBUMIN 3.7 G/DL (3.2-5.2); BILIRUBIN,TOTAL 0.3 MG/DL (0.3-1.2); CHOLESTEROL RISK RATIO 3.04 (<5); CREATININE FOR GFR 1.18 MG/DL (0.55-1.30); GLOMERULAR FILTRATION RATE 48.1 (>39); HDL CHOLESTEROL 44.3 MG/DL (>40); LDL CHOLESTEROL 49.3 MG/DL (<100); NON-HDL-C 90.7 MG/DL; POTASSIUM SERUM 6.2 MMOL/L (3.5-5.1); THYROID STIMULATING HORMONE 2.134 uIU/ML (0.55-4.78); TOTAL PROTEIN 6.3 G/DL (5.7-8.2)
== END ==
LOC: M LAB REF 16:13
PROVIDERS: ATTEND Family Medicine Addiction Medicine
DX: E11.9 Type 2 diabetes mellitus without complications (principal)

== ENCOUNTER → 2023-05-14 | Outpatient (REF) | payer MEDICARE, MEDICAID ==
[2023-05-14 17:20] LABS: BASO # 0.1 10^3/uL (0.0-0.2); BASO % 0.6 % (0.0-1.0); EOS # 0.2 10^3/uL (0.0-0.5); EOS % 2.7 % (0.0-3.0); HEMATOCRIT 45.7 % (36.0-47.0); HEMOGLOBIN 14.6 g/dl (12.0-15.5); LYMPH # 0.6 10^3/uL (1.5-5.0); LYMPH % 6.9 % (24.0-44.0); MEAN CORPUSCULAR HEMOGLOBIN 29.1 pg (27.0-33.0); MEAN CORPUSCULAR HGB CONC 31.9 g/dl (32.0-36.5); MEAN CORPUSCULAR VOLUME 91.2 fl (80.0-96.0); MONO # 0.6 10^3/uL (0.0-0.8); MONO % 6.7 % (2.0-8.0); NEUTROPHILS # 7.3 10^3/uL (1.5-8.5); NEUTROPHILS % 82.6 % (36.0-66.0); PLATELET COUNT, AUTOMATED 156 10^3/uL (150-450); RED BLOOD COUNT 5.01 10^6/uL (4.00-5.40); WHITE BLOOD COUNT 8.8 10^3/uL (4.0-10.0)
[2023-05-14 17:49] LABS: ALBUMIN 3.8 G/DL (3.2-5.2); BILIRUBIN,TOTAL 0.5 MG/DL (0.3-1.2); CALCIUM LEVEL 8.8 MG/DL (8.3-10.6); CREATININE FOR GFR 1.26 MG/DL (0.55-1.30); GLOMERULAR FILTRATION RATE 44.6 (>39); TOTAL PROTEIN 6.3 G/DL (5.7-8.2)
== END ==
LOC: M LAB REF 16:30
PROVIDERS: ATTEND Family Medicine Addiction Medicine
DX: J20.8 Acute bronchitis due to other specified organisms (principal); E87.5 Hyperkalemia

== ENCOUNTER → 2023-05-28 | Outpatient (REF) | payer MEDICARE, MEDICAID ==
[2023-05-28 19:56] LABS: ALBUMIN 3.8 G/DL (3.2-5.2); BILIRUBIN,TOTAL 0.3 MG/DL (0.3-1.2); CALCIUM LEVEL 9.2 MG/DL (8.3-10.6); CREATININE FOR GFR 1.31 MG/DL (0.55-1.30); GLOMERULAR FILTRATION RATE 42.6 (>39); POTASSIUM SERUM 5.2 MMOL/L (3.5-5.1); TOTAL PROTEIN 6.6 G/DL (5.7-8.2)
== END ==
LOC: M LAB REF 17:36
PROVIDERS: ATTEND Family Medicine Addiction Medicine
DX: I10 Essential (primary) hypertension (principal)

== ENCOUNTER 2023-06-28 12:37 | Inpatient (IN) | payer MEDICARE, MEDICAID ==
[~2023-06-28] VITALS: Ht 149.9 cm; Wt 87.9 kg
[~2023-06-28 12:37] MED LIST changes: -OXYB5TAB11 PO; +OXYB5TAB14 PO
[2023-06-28 14:13] LABS: VENOUS BASE EXCESS 1.2 (-2.0-2.0); VENOUS HCO3 28.5 MMOL/L (23.0-27.0); VENOUS O2 SATURATION 91.1 % (60.0-80.0); VENOUS PARTIAL PRESSURE CO2 56.1 mmHg (38.0-50.0); VENOUS PARTIAL PRESSURE O2 60.8 mmHg (30.0-50.0); VENOUS PH 7.324 UNITS (7.330-7.430); VENOUS STANDARD HCO3 25.4 MMOL/L; VENOUS TOTAL CO2 30.2 MMOL/L (24.0-28.0)
[2023-06-28 14:14] LABS: BASO # 0.1 10^3/uL (0.0-0.2); BASO % 0.6 % (0.0-1.0); EOS # 0.1 10^3/uL (0.0-0.5); EOS % 1.1 % (0.0-3.0); HEMATOCRIT 44.5 % (36.0-47.0); HEMOGLOBIN 14.4 g/dl (12.0-15.5); LYMPH # 0.7 10^3/uL (1.5-5.0); LYMPH % 6.3 % (24.0-44.0); MEAN CORPUSCULAR HEMOGLOBIN 29.3 pg (27.0-33.0); MEAN CORPUSCULAR HGB CONC 32.4 g/dl (32.0-36.5); MEAN CORPUSCULAR VOLUME 90.6 fl (80.0-96.0); MONO # 0.7 10^3/uL (0.0-0.8); MONO % 5.8 % (2.0-8.0); NEUTROPHILS # 9.9 10^3/uL (1.5-8.5); NEUTROPHILS % 85.8 % (36.0-66.0); PLATELET COUNT, AUTOMATED 140 10^3/uL (150-450); RED BLOOD COUNT 4.91 10^6/uL (4.00-5.40); WHITE BLOOD COUNT 11.5 10^3/uL (4.0-10.0)
[2023-06-28] MEDS ORDERED: LANTINJ4 SC (15:17)
[2023-06-28] MEDS ORDERED: LEVO50TA5 PO (15:17)
[2023-06-28] MEDS ORDERED: METO25TA PO (15:17)
[2023-06-28] MEDS ORDERED: MONT10TA97 PO (15:17)
[2023-06-28] MEDS ORDERED: ALBU2.5V10 INH (15:17)
[2023-06-28] MEDS ORDERED: CVS1CAP2 PO (15:17)
[2023-06-28] MEDS ORDERED: BUDE0.5S6 INH (15:17)
[2023-06-28] MEDS ORDERED: VENTAER INH (15:22)
[2023-06-28] MEDS ORDERED: AMLO1TAB24 PO (15:23)
[2023-06-28] MEDS ORDERED: HOME MED LIST COMPLETE! XX SCH (15:30)
[2023-06-28] MEDS ORDERED: FURO20TA2 PO (15:30)
[2023-06-28 15:51] LABS: AMPHETAMINES LEVEL URINE NEGATIVE (NEGATIVE); BARBITURATES URINE NEGATIVE (NEGATIVE); BENZODIAZEPINES URINE NEGATIVE (NEGATIVE)
[2023-06-28 15:52] LABS: CANNABINOIDS URINE NEGATIVE (NEGATIVE); COCAINE METABOLITE URINE NEGATIVE (NEGATIVE); METHADONE URINE NEGATIVE (NEGATIVE); OPIATES URINE NEGATIVE (NEGATIVE); PHENCYCLIDINE URINE NEGATIVE (NEGATIVE)
[2023-06-28 16:03] LABS: ABG BASE EXCESS 1.6 (-2.0-2.0); ABG HCO3 28.4 MMOL/L (22.0-26.0); ABG O2 SATURATION 93.6 % (95.0-99.0); ABG PARTIAL PRESSURE CO2 53.1 mmHg (35.0-45.0); ABG PARTIAL PRESSURE O2 71.8 mmHg (75.0-100.0); ABG STANDARD HCO3 25.8 MMOL/L. (22.0-26.0); ABG pH (ARTERIAL) 7.346 UNITS (7.350-7.450)
[2023-06-28 16:06] LABS: ETHYL ALCOHOL (ETHANOL) < 0.003 % (0.000-0.010)
[2023-06-28 16:08] LABS: ALBUMIN 3.3 G/DL (3.2-5.2); ALKALINE PHOSPHATASE 114 U/L (46-116); ALT/SGPT 14 U/L (7.0-40); AST/SGOT 18 U/L (<34); BILIRUBIN,DIRECT 0.1 MG/DL (<0.4); BILIRUBIN,TOTAL 0.3 MG/DL (0.3-1.2); BLOOD UREA NITROGEN 40 MG/DL (9-23); CALCIUM LEVEL 8.9 MG/DL (8.3-10.6); CARBON DIOXIDE LEVEL 31 MMOL/L (20-31); CHLORIDE LEVEL 102 MMOL/L (98-107); GLOMERULAR FILTRATION RATE 52.1 (>39); GLUCOSE, FASTING 101 MG/DL (74-106); SALICYLATE LEVEL < 3.0 MG/DL (<30); SODIUM LEVEL 137 MMOL/L (136-145); TOTAL PROTEIN 5.8 G/DL (5.7-8.2)
[2023-06-28 16:10] LABS: THYROID STIMULATING HORMONE 2.752 uIU/ML (0.55-4.78)
[2023-06-28] MEDS: cefTRIAXone SOD 2 GM in D5W MINI-BAG PLUS 50 ML IV ONE (16:13)
[2023-06-28] MEDS ORDERED: GLUCAGON INJ 1MG VIAL SC PRN (17:15)
[2023-06-28] MEDS ORDERED: DEXTROSE 50% 50ML SYRINGE IV PRN (17:15)
[2023-06-28] MEDS ORDERED: GLUCOSE 4GM CHEW TABLET PO PRN (17:15)
[2023-06-28] MEDS ORDERED: MOM 30ML SUSPENSION UDC PO PRN (17:15)
[2023-06-28 18:46] LABS: PROCALCITONIN 0.04 ng/ml
[2023-06-28 18:49] VITALS: BP 151/67; TEMP 97.8; O2SAT 94
[2023-06-28] MEDS: IPRATROPIUM 0.5MG/ALBUTEROL 2.5MG INH SOL UD 3ML (DUONEB) NEB SCH (20:04)
[2023-06-28] MEDS: FUROSEMIDE 40MG/4ML VIAL IV SCH (21:08)
[2023-06-28] MEDS: DOCUSATE SODIUM 100MG CAPSULE PO SCH (21:08)
[2023-06-28] MEDS: ENOXAPARIN 40MG/0.4ML SYRINGE (J1650 PER 10MG) SC SCH (21:08)
[2023-06-28 23:20] VITALS: BP 155/70; TEMP 99.2; O2SAT 92
[2023-06-28] MEDS: ACETAMINOPHEN TAB 650MG DOSE (2X325MG) PO PRN (23:27)
[2023-06-29] MEDS: CARVedilol 12.5 MG TAB PO SCH (01:52)
[2023-06-29 03:37] VITALS: BP 139/65; TEMP 98; O2SAT 95
[2023-06-29] MEDS ORDERED: COMBIVENT RESPIMAT 100-20MCG INHALER 4GM INH PRN (05:40)
[2023-06-29] MEDS ORDERED: ALBUTEROL SULFATE 2.5MG/0.5ML INH NEB SOLN INH PRN (05:40)
[2023-06-29 06:00] LABS: BASO % 0.3 % (0.0-1.0); EOS # 0.2 10^3/uL (0.0-0.5); EOS % 1.5 % (0.0-3.0); HEMATOCRIT 42.2 % (36.0-47.0); HEMOGLOBIN 13.6 g/dl (12.0-15.5); LYMPH # 0.7 10^3/uL (1.5-5.0); LYMPH % 7.3 % (24.0-44.0); MEAN CORPUSCULAR HGB CONC 32.2 g/dl (32.0-36.5); MONO # 0.7 10^3/uL (0.0-0.8); NEUTROPHILS # 8.1 10^3/uL (1.5-8.5); NEUTROPHILS % 83.6 % (36.0-66.0); PLATELET COUNT, AUTOMATED 133 10^3/uL (150-450); RED BLOOD COUNT 4.69 10^6/uL (4.00-5.40); WHITE BLOOD COUNT 9.7 10^3/uL (4.0-10.0)
[2023-06-29] MEDS: LEVOTHYROXINE 50MCG TABLET (0.05MG) PO SCH (06:11)
[2023-06-29 06:16] LABS: CALCIUM LEVEL 8.5 MG/DL (8.3-10.6); CREATININE FOR GFR 1.21 MG/DL (0.55-1.30); GLOMERULAR FILTRATION RATE 46.7 (>39); MAGNESIUM LEVEL 1.8 MG/DL (1.8-2.4); POTASSIUM SERUM 4.5 MMOL/L (3.5-5.1)
[2023-06-29] MEDS: TIOTROPIUM INHALER/CAPSULE (SPIRIVA) INH SCH (07:27)
[2023-06-29 07:31] VITALS: BP 149/70; TEMP 97.6; O2SAT 97
[2023-06-29 08:03] LABS: HEMOGLOBIN A1c 9.9 % (4.0-6.0)
[2023-06-29] MEDS: ASPIRIN 81MG ENTERIC TABLET PO SCH (09:41)
[2023-06-29] MEDS: BUPRENORPHINE/NALOXONE 2-0.5MG SUBLINGUAL TABLET(SUBOXONE) SL SCH (09:41)
[2023-06-29] MEDS: amLODIPine 5 MG TAB PO SCH (09:41)
[2023-06-29] MEDS: BUPRENORPHINE/NALOXONE 8-2MG SUBLINGUAL TABLET(SUBOXONE) SL SCH (09:41)
[2023-06-29] MEDS: SIMVASTATIN 20 MG TAB PO SCH (09:42)
[2023-06-29] MEDS: METHENAMINE HIPPURATE 1GM TABLET PO SCH (09:42)
[2023-06-29 11:45] VITALS: BP 122/85; TEMP 97.2; O2SAT 95
[2023-06-29] MEDS: INSULIN LISPRO (NovoLOG) PER UNIT SC SCH ×2 (12:28→21:00)
[2023-06-29] MEDS: SERTRALINE HCL 50 MG TAB PO SCH (12:28)
[2023-06-29] MEDS: CEFDINIR 300 MG CAP (OMNICEF) PO SCH (12:28)
[2023-06-29] MEDS ORDERED: cefTRIAXone SOD 2 GM in D5W MINI-BAG PLUS 50 ML IV SCH (15:00)
[2023-06-29 15:54] VITALS: BP 135/60; TEMP 97.6; O2SAT 92
[2023-06-29] MEDS: FUROSEMIDE 40MG/4ML VIAL IV SCH (17:11)
[2023-06-29] MEDS: NICOTINE 21MG/24HR 1 EA TRANSDERMAL TD SCH (17:12)
[2023-06-29 19:35] VITALS: BP 123/56; TEMP 97.5; O2SAT 94
[2023-06-29] MEDS ORDERED: FUROSEMIDE 20 MG TAB PO SCH (21:00)
[2023-06-29 21:09] VITALS: BP 123/56
[2023-06-30 05:48] VITALS: BP 146/65; TEMP 97; O2SAT 95
[2023-06-30 06:04] LABS: BASO % 0.5 % (0.0-1.0); EOS # 0.3 10^3/uL (0.0-0.5); EOS % 4.2 % (0.0-3.0); HEMATOCRIT 43.9 % (36.0-47.0); HEMOGLOBIN 13.9 g/dl (12.0-15.5); LYMPH # 0.9 10^3/uL (1.5-5.0); LYMPH % 11.7 % (24.0-44.0); MEAN CORPUSCULAR HEMOGLOBIN 28.5 pg (27.0-33.0); MEAN CORPUSCULAR HGB CONC 31.7 g/dl (32.0-36.5); MEAN CORPUSCULAR VOLUME 90.1 fl (80.0-96.0); MONO # 0.6 10^3/uL (0.0-0.8); MONO % 7.5 % (2.0-8.0); NEUTROPHILS # 5.6 10^3/uL (1.5-8.5); NEUTROPHILS % 75.7 % (36.0-66.0); PLATELET COUNT, AUTOMATED 131 10^3/uL (150-450); RED BLOOD COUNT 4.87 10^6/uL (4.00-5.40); WHITE BLOOD COUNT 7.4 10^3/uL (4.0-10.0)
[2023-06-30 06:27] LABS: CALCIUM LEVEL 8.7 MG/DL (8.3-10.6); CREATININE FOR GFR 1.29 MG/DL (0.55-1.30); GLOMERULAR FILTRATION RATE 43.4 (>39); MAGNESIUM LEVEL 1.8 MG/DL (1.8-2.4); POTASSIUM SERUM 4.3 MMOL/L (3.5-5.1)
[2023-06-30 08:00] VITALS: BP 119/57; TEMP 98; O2SAT 90
[2023-06-30] MEDS ORDERED: metOLazone 2.5 MG TAB PO SCH (09:00)
[2023-06-30] MEDS ORDERED: FUROSEMIDE 20 MG TAB PO SCH (09:00)
[2023-06-30] MEDS: BUPRENORPHINE/NALOXONE 8-2MG SUBLINGUAL TABLET(SUBOXONE) PO SCH (09:30)
[2023-06-30] MEDS ORDERED: FURO40TA2 PO (10:00)
[2023-06-30] MEDS ORDERED: CEFD300CAP PO (10:00)
[2023-06-30] MEDS ORDERED: HUMA100I5 SQ (10:00)
[2023-06-30] MEDS ORDERED: FURO20TA2 PO (10:00)
[2023-06-30] MEDS ORDERED: LANTINJ4 SC (10:00)
== END 2023-06-30 13:37 | disposition home health service (06) | DRG 689 ==
LOC: EDBD 12:37 → M ED 12:37 → M ED INP 16:37 → M PCU 18:11
PROVIDERS: ADMIT Internal Medicine; ATTEND Internal Medicine
DX: N39.0 Urinary tract infection, site not specified (principal); G93.41 Metabolic encephalopathy; I50.32 Chronic diastolic (congestive) heart failure; F11.20 Opioid dependence, uncomplicated; J44.9 Chronic obstructive pulmonary disease, unspecified; F32.A Depression, unspecified; I25.10 Atherosclerotic heart disease of native coronary artery without angina pectoris; E03.9 Hypothyroidism, unspecified; I27.20 Pulmonary hypertension, unspecified; I11.0 Hypertensive heart disease with heart failure; I27.81 Cor pulmonale (chronic); E11.649 Type 2 diabetes mellitus with hypoglycemia without coma; K76.0 Fatty (change of) liver, not elsewhere classified; K74.60 Unspecified cirrhosis of liver; F17.200 Nicotine dependence, unspecified, uncomplicated; Z85.51 Personal history of malignant neoplasm of bladder; B96.20 Unspecified Escherichia coli [E. coli] as the cause of diseases classified elsewhere; R68.0 Hypothermia, not associated with low environmental temperature; D35.02 Benign neoplasm of left adrenal gland; Z79.82 Long term (current) use of aspirin; Z79.899 Other long term (current) drug therapy; Z79.4 Long term (current) use of insulin

== ENCOUNTER → 2023-08-05 | Outpatient (REF) | payer MEDICARE, MEDICAID ==
[~2023-08-05] MED LIST changes: +AMLO1TAB24 PO; +CEFD300CAP PO; +FURO40TA2 PO; +LANTINJ4 SC; +MONT10TA97 PO; +VENTAER INH
== END ==
LOC: M LAB REF 16:08
PROVIDERS: ATTEND Family Medicine Addiction Medicine
DX: R39.9 Unspecified symptoms and signs involving the genitourinary system (principal)

== ENCOUNTER 2023-10-17 14:17 | Inpatient (IN) | payer MEDICARE, MEDICAID ==
[~2023-10-17] VITALS: Ht 149.9 cm; Wt 85.2 kg
[2023-10-17] MEDS: cefTRIAXone SOD 2 GM in D5W MINI-BAG PLUS 50 ML IV ONE (14:50)
[2023-10-17] MEDS: NS 2,460 ML in IV 1 EA IV ONE (14:50)
[2023-10-17 15:08] LABS: INR 0.98; PARTIAL THROMBOPLASTIN TIME 30.5 SECONDS (24.8-34.2); PROTHROMBIN TIME 12.7 SECONDS (12.5-14.5)
[2023-10-17] MEDS: IPRATROPIUM 0.5MG/ALBUTEROL 2.5MG INH SOL UD 3ML (DUONEB) NEB PRN (15:08)
[2023-10-17 15:09] LABS: BASO # 0.1 10^3/uL (0.0-0.2); BASO % 0.5 % (0.0-1.0); EOS # 0.3 10^3/uL (0.0-0.5); EOS % 2.4 % (0.0-3.0); HEMATOCRIT 41.5 % (36.0-47.0); HEMOGLOBIN 14.1 g/dl (12.0-15.5); LYMPH # 0.8 10^3/uL (1.5-5.0); MEAN CORPUSCULAR VOLUME 85.4 fl (80.0-96.0); MONO # 0.7 10^3/uL (0.0-0.8); NEUTROPHILS # 9.7 10^3/uL (1.5-8.5); NEUTROPHILS % 83.8 % (36.0-66.0); PLATELET COUNT, AUTOMATED 204 10^3/uL (150-450); RED BLOOD COUNT 4.86 10^6/uL (4.00-5.40); WHITE BLOOD COUNT 11.6 10^3/uL (4.0-10.0)
[2023-10-17 15:10] VITALS: O2SAT 94
[2023-10-17 15:13] LABS: C REACTIVE PROTEIN QUANTITATIV 2.1 MG/DL (<1.0)
[2023-10-17 15:15] LABS: ALBUMIN 3.9 G/DL (3.2-5.2); BILIRUBIN,DIRECT 0.1 MG/DL (<0.4); BILIRUBIN,TOTAL 0.4 MG/DL (0.3-1.2); POTASSIUM SERUM 4.4 MMOL/L (3.5-5.1); TOTAL PROTEIN 6.4 G/DL (5.7-8.2)
[2023-10-17 15:26] LABS: PROCALCITONIN 0.15 ng/ml
[2023-10-17 15:26] LABS: ABG BASE EXCESS -0.1 (-2.0-2.0); ABG PARTIAL PRESSURE CO2 48.3 mmHg (35.0-45.0); ABG PARTIAL PRESSURE O2 82.8 mmHg (75.0-100.0); ABG STANDARD HCO3 24.4 MMOL/L. (22.0-26.0); ABG TOTAL CO2 27.5 MMOL/L (23.0-31.0); ABG pH (ARTERIAL) 7.349 UNITS (7.350-7.450)
[2023-10-17] MEDS ORDERED: MIRALAX *UNIT DOSE* 17GM PACKET PO PRN (16:55)
[2023-10-17] MEDS ORDERED: BISACODYL 5MG TAB PO PRN (16:55)
[2023-10-17] MEDS ORDERED: ONDANSETRON 4MG 2ML VIAL IV PRN (16:55)
[2023-10-17] MEDS ORDERED: SENOKOT S TAB PO PRN (16:55)
[2023-10-17] MEDS ORDERED: GLUCOSE 4 GM CHEW PO PRN (17:00)
[2023-10-17] MEDS ORDERED: DEXTROSE 50% 50ML SYRINGE IV PRN (17:00)
[2023-10-17] MEDS ORDERED: GLUCAGON INJ 1MG VIAL SC PRN (17:00)
[2023-10-17] MEDS ORDERED: COMBIVENT RESPIMAT 100-20MCG INHALER 4GM INH PRN (17:05)
[2023-10-17 17:21] LABS: APPEARANCE, URINE HAZY (CLEAR); BACTERIA, URINE AUTO NEGATIVE (NEGATIVE); BILIRUBIN, URINE AUTO NEGATIVE (NEGATIVE); BLOOD, URINE BLOOD 1+ (NEGATIVE); COLOR, URINE YELLOW (YELLOW); GLUCOSE, URINE (UA) AUTO NEGATIVE (NEGATIVE); KETONE, URINE AUTO NEGATIVE (NEGATIVE); LEUKOCYTE ESTERASE, URINE AUTO 3+ (NEGATIVE); MUCUS, URINE SMALL (NEGATIVE); NITRITE, URINE AUTO NEGATIVE (NEGATIVE); PROTEIN, URINE AUTO NEGATIVE (NEGATIVE); RBC, URINE AUTO 5 /HPF (0-3); SPECIFIC GRAVITY URINE AUTO 1.011 (1.002-1.035); SQUAMOUS EPITHELIAL CELL UR AU 2 /HPF (0-6); UROBILINOGEN, URINE AUTO 0.2 mg/dL (0.0-2.0); WBC, URINE AUTO 109 /HPF (0-3)
[2023-10-17 17:36] LABS: CREATININE,RANDOM URINE 66.2 MG/DL
[2023-10-17 17:49] LABS: MAGNESIUM LEVEL 2.3 MG/DL (1.8-2.4)
[2023-10-17 17:52] LABS: FREE T4 1.74 NG/DL (0.89-1.76)
[2023-10-17 17:53] LABS: THYROID STIMULATING HORMONE 2.434 uIU/ML (0.55-4.78)
[2023-10-17 17:56] LABS: URIC ACID 11.1 MG/DL (3.1-7.8)
[2023-10-17] MEDS: NS 1,000 ML IV ONE (18:15)
[2023-10-17 18:18] LABS: HEMOGLOBIN A1c 12.8 % (4.0-6.0)
[2023-10-17] MEDS ORDERED: IPRATROPIUM 0.5MG/ALBUTEROL 2.5MG INH SOL UD 3ML (DUONEB) NEB PRN (18:35)
[2023-10-17 18:39] VITALS: BP 126/58; TEMP 97.6; O2SAT 97
[2023-10-17] MEDS: LACTOBACILLUS ACIDOPHILUS CAP (BACID) PO SCH (18:41)
[2023-10-17] MEDS: INSULIN LISPRO (NovoLOG) PER UNIT SC SCH ×2 (18:42→21:12)
[2023-10-17] MEDS ORDERED: INSU100V6 SC (19:54)
[2023-10-17] MEDS ORDERED: HOME MED LIST COMPLETE! XX SCH (20:15)
[2023-10-17] MEDS: IPRATROPIUM 0.5MG/ALBUTEROL 2.5MG INH SOL UD 3ML (DUONEB) NEB SCH (20:25)
[2023-10-17 20:41] LABS: BLOOD UREA NITROGEN 106 MG/DL (9-23); CALCIUM LEVEL 7.9 MG/DL (8.3-10.6); CARBON DIOXIDE LEVEL 24 MMOL/L (20-31); CHLORIDE LEVEL 97 MMOL/L (98-107); CREATININE FOR GFR 1.88 MG/DL (0.55-1.30); GLOMERULAR FILTRATION RATE > 60.0 (>39); GLUCOSE, FASTING 285 MG/DL (74-106); POTASSIUM SERUM 4.7 MMOL/L (3.5-5.1); SODIUM LEVEL 128 MMOL/L (136-145)
[2023-10-17] MEDS: SIMVASTATIN 20 MG TAB PO SCH (20:44)
[2023-10-17] MEDS: methylPREDNISolone 125MG 2ML VIAL IV ONE (20:44)
[2023-10-17] MEDS: CARVedilol 12.5 MG TAB PO SCH (20:45)
[2023-10-17] MEDS: NS 1,000 ML IV SCH (20:45)
[2023-10-17] MEDS: NICOTINE 21MG/24HR 1 EA TRANSDERMAL TD SCH (20:46)
[2023-10-17] MEDS: METHENAMINE HIPPURATE 1GM TABLET PO SCH (22:57)
[2023-10-18] VITALS (7 sets, daily range): BP systolic 105–140; BP diastolic 53–65; TEMP 95.9–97.6; O2SAT 89–97
[2023-10-18] MEDS: methylPREDNISolone 125MG 2ML VIAL IV SCH (01:12)
[2023-10-18 02:46] LABS: BASO % 0.3 % (0.0-1.0); EOS % 0.1 % (0.0-3.0); HEMATOCRIT 38.1 % (36.0-47.0); HEMOGLOBIN 12.9 g/dl (12.0-15.5); LYMPH # 0.3 10^3/uL (1.5-5.0); MEAN CORPUSCULAR HEMOGLOBIN 29.1 pg (27.0-33.0); MEAN CORPUSCULAR HGB CONC 33.9 g/dl (32.0-36.5); MEAN CORPUSCULAR VOLUME 85.8 fl (80.0-96.0); MONO # 0.1 10^3/uL (0.0-0.8); MONO % 0.8 % (2.0-8.0); NEUTROPHILS # 6.9 10^3/uL (1.5-8.5); NEUTROPHILS % 94.4 % (36.0-66.0); PLATELET COUNT, AUTOMATED 174 10^3/uL (150-450); RED BLOOD COUNT 4.44 10^6/uL (4.00-5.40); WHITE BLOOD COUNT 7.3 10^3/uL (4.0-10.0)
[2023-10-18 03:37] LABS: CALCIUM LEVEL 7.9 MG/DL (8.3-10.6); POTASSIUM SERUM 4.7 MMOL/L (3.5-5.1)
[2023-10-18] MEDS: LEVOTHYROXINE 50MCG TABLET (0.05MG) PO SCH (05:35)
[2023-10-18] MEDS: TIOTROPIUM INHALER/CAPSULE (SPIRIVA) INH SCH (08:00)
[2023-10-18] MEDS: ASPIRIN 81MG CHEW TABLET PO SCH (08:49)
[2023-10-18] MEDS: INSULIN LISPRO (NovoLOG) PER UNIT SC SCH (08:49)
[2023-10-18] MEDS: LEVEMIR (INSULIN DETEMIR) 1 UNITS/0.01ML SC ONE (08:49)
[2023-10-18] MEDS: MONTELUKAST 10 MG TAB PO SCH (08:50)
[2023-10-18] MEDS: guaiFENesin ER TABLET 600 MG TAB PO ONE (08:50)
[2023-10-18] MEDS: SERTRALINE HCL 50 MG TAB PO SCH (08:51)
[2023-10-18] MEDS: predniSONE 10MG TAB PO SCH (08:51)
[2023-10-18] MEDS ORDERED: LEVEMIR (INSULIN DETEMIR) 1 UNITS/0.01ML SC SCH (09:00)
[2023-10-18 12:38] LABS: CREATININE FOR GFR 2.31 MG/DL (0.55-1.30); GLOMERULAR FILTRATION RATE 22.1 (>39)
[2023-10-18 12:50] LABS: CREATININE FOR GFR 1.78 MG/DL (0.55-1.30); GLOMERULAR FILTRATION RATE 29.9 (>39)
[2023-10-18] MEDS: cefTRIAXone SOD 1 GM in D5W MINI-BAG PLUS 50 ML IV SCH (15:42)
[2023-10-18] MEDS: BUPRENORPHINE/NALOXONE 2-0.5MG SUBLINGUAL TABLET(SUBOXONE) SL SCH (15:54)
[2023-10-18] MEDS: BUPRENORPHINE/NALOXONE 8-2MG SUBLINGUAL TABLET(SUBOXONE) SL SCH (15:54)
[2023-10-18] MEDS: ACETAMINOPHEN TAB 650MG DOSE (2X325MG) PO PRN (20:18)
[2023-10-18 21:53] LABS: CALCIUM LEVEL 8.8 MG/DL (8.3-10.6); CREATININE FOR GFR 1.6 MG/DL (0.55-1.30); GLOMERULAR FILTRATION RATE 33.8 (>39); POTASSIUM SERUM 5.1 MMOL/L (3.5-5.1)
[2023-10-19] MEDS: INSULIN LISPRO (NovoLOG) PER UNIT SC ONE (00:13)
[2023-10-19 03:45] VITALS: BP 148/63; TEMP 97; O2SAT 98
[2023-10-19] MEDS: LEVEMIR (INSULIN DETEMIR) 1 UNITS/0.01ML SC ONE ×3 (04:11→19:01)
[2023-10-19 05:25] LABS: BASO % 0.2 % (0.0-1.0); HEMATOCRIT 38.6 % (36.0-47.0); HEMOGLOBIN 12.9 g/dl (12.0-15.5); LYMPH # 0.4 10^3/uL (1.5-5.0); LYMPH % 3.4 % (24.0-44.0); MEAN CORPUSCULAR HEMOGLOBIN 29.2 pg (27.0-33.0); MEAN CORPUSCULAR HGB CONC 33.4 g/dl (32.0-36.5); MEAN CORPUSCULAR VOLUME 87.3 fl (80.0-96.0); MONO # 1.1 10^3/uL (0.0-0.8); MONO % 9.3 % (2.0-8.0); NEUTROPHILS # 10.4 10^3/uL (1.5-8.5); NEUTROPHILS % 86.5 % (36.0-66.0); PLATELET COUNT, AUTOMATED 215 10^3/uL (150-450); RED BLOOD COUNT 4.42 10^6/uL (4.00-5.40)
[2023-10-19 05:48] LABS: CALCIUM LEVEL 9.4 MG/DL (8.3-10.6); CREATININE FOR GFR 1.53 MG/DL (0.55-1.30); GLOMERULAR FILTRATION RATE 35.6 (>39); POTASSIUM SERUM 4.6 MMOL/L (3.5-5.1)
[2023-10-19 07:15] VITALS: BP 140/63; TEMP 97; O2SAT 98
[2023-10-19] MEDS ORDERED: PIPERACILLIN/TAZOBACTAM SOD 4.5 GM in D5W MINI-BAG PLUS 50 ML IV SCH (09:35)
[2023-10-19 12:00] VITALS: BP 116/53; TEMP 97.5; O2SAT 92
[2023-10-19] MEDS ORDERED: PIPERACILLIN/TAZOBACTAM SOD 2.25 GM in D5W MINI-BAG PLUS 50 ML IV SCH (12:00)
[2023-10-19] MEDS: PIPERACILLIN IV SCH ×2 (12:40→18:03)
[2023-10-19] MEDS: NS MINI IV SCH ×2 (12:40→18:03)
[2023-10-19] MEDS: TAZOBACTAM SOD IV SCH ×2 (12:40→18:03)
[2023-10-19] MEDS: INSULIN LISPRO (NovoLOG) PER UNIT SC SCH (12:41)
[2023-10-19] MEDS: ALPRAZolam 0.5 MG TAB PO ONE (13:58)
[2023-10-19] MEDS: FIORICET TAB PO ONE (13:59)
[2023-10-19 15:51] VITALS: BP 145/66; TEMP 97; O2SAT 94
[2023-10-19 17:22] VITALS: BP 135/59; TEMP 97.7; O2SAT 96
[2023-10-19] MEDS: LR 1,000 ML IV SCH (19:01)
[2023-10-19 19:47] VITALS: BP 131/59; TEMP 98.1; O2SAT 93
[2023-10-19] MEDS ORDERED: LEVEMIR (INSULIN DETEMIR) 1 UNITS/0.01ML SC SCH (21:00)
[2023-10-20 04:05] VITALS: BP 126/57; TEMP 97.9; O2SAT 97
[2023-10-20 06:59] LABS: BASO % 0.1 % (0.0-1.0); EOS % 0.1 % (0.0-3.0); HEMATOCRIT 38.7 % (36.0-47.0); HEMOGLOBIN 12.7 g/dl (12.0-15.5); LYMPH # 0.6 10^3/uL (1.5-5.0); MEAN CORPUSCULAR HEMOGLOBIN 29.1 pg (27.0-33.0); MEAN CORPUSCULAR HGB CONC 32.8 g/dl (32.0-36.5); MEAN CORPUSCULAR VOLUME 88.8 fl (80.0-96.0); MONO # 0.8 10^3/uL (0.0-0.8); MONO % 8.4 % (2.0-8.0); NEUTROPHILS # 7.6 10^3/uL (1.5-8.5); NEUTROPHILS % 83.7 % (36.0-66.0); PLATELET COUNT, AUTOMATED 193 10^3/uL (150-450); RED BLOOD COUNT 4.36 10^6/uL (4.00-5.40); WHITE BLOOD COUNT 9.1 10^3/uL (4.0-10.0)
[2023-10-20 07:20] LABS: CALCIUM LEVEL 9.1 MG/DL (8.3-10.6); CREATININE FOR GFR 1.72 MG/DL (0.55-1.30); GLOMERULAR FILTRATION RATE 31.1 (>39); POTASSIUM SERUM 4.8 MMOL/L (3.5-5.1)
[2023-10-20] MEDS ORDERED: INSULIN LISPRO (NovoLOG) PER UNIT SC SCH (07:30)
[2023-10-20] MEDS: LEVEMIR (INSULIN DETEMIR) 1 UNITS/0.01ML SC ONE ×2 (08:59→17:20)
[2023-10-20] MEDS: INSULIN LISPRO (NovoLOG) PER UNIT SC STA (08:59)
[2023-10-20] MEDS ORDERED: LEVEMIR (INSULIN DETEMIR) 1 UNITS/0.01ML SC SCH ×2 (09:00)
[2023-10-20] MEDS: predniSONE 10MG TAB PO SCH (09:00)
[2023-10-20] MEDS: FUROSEMIDE 40 MG TAB PO SCH (09:01)
[2023-10-20] MEDS: ALPRAZolam 0.5 MG TAB PO ONE (10:48)
[2023-10-20 11:47] VITALS: BP 122/62; TEMP 98; O2SAT 98
[2023-10-20 15:10] VITALS: BP 130/73; TEMP 97.9; O2SAT 95
[2023-10-20] MEDS ORDERED: IPRATROPIUM 0.02% SOLN 0.5MG 2.5ML NEB INH PRN (15:55)
[2023-10-20] MEDS ORDERED: LEVALBUTEROL 1.25MG 0.5ML CONCENTRATE NEB INH PRN (15:55)
[2023-10-20] MEDS: LEVALBUTEROL 1.25MG 0.5ML CONCENTRATE NEB INH SCH (16:35)
[2023-10-20] MEDS: IPRATROPIUM 0.02% SOLN 0.5MG 2.5ML NEB INH SCH (16:35)
[2023-10-20] MEDS: methylPREDNISolone 125MG 2ML VIAL IV ONE (16:40)
[2023-10-20] MEDS: INSULIN LISPRO (NovoLOG) PER UNIT SC SCH (17:20)
[2023-10-20 19:30] VITALS: BP 129/72; TEMP 98.1; O2SAT 94
[2023-10-20] MEDS: methylPREDNISolone 40MG 1ML VIAL IV SCH (22:06)
[2023-10-21 04:17] VITALS: BP 132/72; TEMP 97.7; O2SAT 96
[2023-10-21 05:59] LABS: HEMATOCRIT 42.6 % (36.0-47.0); HEMOGLOBIN 13.9 g/dl (12.0-15.5); LYMPH # 0.2 10^3/uL (1.5-5.0); LYMPH % 3.1 % (24.0-44.0); MEAN CORPUSCULAR HEMOGLOBIN 29.6 pg (27.0-33.0); MEAN CORPUSCULAR HGB CONC 32.6 g/dl (32.0-36.5); MEAN CORPUSCULAR VOLUME 90.6 fl (80.0-96.0); MONO # 0.2 10^3/uL (0.0-0.8); MONO % 2.3 % (2.0-8.0); NEUTROPHILS # 6.9 10^3/uL (1.5-8.5); NEUTROPHILS % 93.8 % (36.0-66.0); PLATELET COUNT, AUTOMATED 202 10^3/uL (150-450); WHITE BLOOD COUNT 7.3 10^3/uL (4.0-10.0)
[2023-10-21 06:27] LABS: CALCIUM LEVEL 9.8 MG/DL (8.3-10.6); CREATININE FOR GFR 1.65 MG/DL (0.55-1.30); GLOMERULAR FILTRATION RATE 32.6 (>39)
[2023-10-21] MEDS: LEVEMIR (INSULIN DETEMIR) 1 UNITS/0.01ML SC SCH (08:17)
[2023-10-21 12:00] VITALS: BP 117/63; TEMP 98.1; O2SAT 96
[2023-10-21] MEDS: INSULIN LISPRO (NovoLOG) PER UNIT SC SCH (12:05)
[2023-10-21] MEDS ORDERED: NICO21PAT TD (12:09)
[2023-10-21] MEDS ORDERED: INSU100I48 SQ (12:10)
[2023-10-21] MEDS ORDERED: ALBU8.5H INH (12:10)
[2023-10-21] MEDS ORDERED: PRED20TA PO (12:10)
[2023-10-21] MEDS ORDERED: PRED10TA2 PO (12:13)
[2023-10-21] MEDS ORDERED: LEVO1TAB40 PO (12:13)
[2023-10-21] MEDS ORDERED: AZIT-12 PO (12:13)
[2023-10-21] MEDS ORDERED: ALCOPAD25 TOP (12:16)
[2023-10-21] MEDS ORDERED: BD P31MI2 SC (12:16)
[2023-10-21] MEDS ORDERED: GLUCMIS7 XX (12:16)
[2023-10-21] MEDS ORDERED: LANC1COM MC (12:16)
[2023-10-21] MEDS: INSULIN LISPRO (NovoLOG) PER UNIT SC STA (13:17)
[2023-10-21 19:05] VITALS: BP 146/69; TEMP 98.1; O2SAT 96
[2023-10-22 04:12] VITALS: BP 133/68; TEMP 97.9; O2SAT 95
[2023-10-22 06:19] LABS: BASO % 0.2 % (0.0-1.0); EOS % 0.4 % (0.0-3.0); HEMATOCRIT 41.4 % (36.0-47.0); HEMOGLOBIN 13.4 g/dl (12.0-15.5); LYMPH # 1.2 10^3/uL (1.5-5.0); LYMPH % 12.3 % (24.0-44.0); MEAN CORPUSCULAR HGB CONC 32.4 g/dl (32.0-36.5); MEAN CORPUSCULAR VOLUME 89.6 fl (80.0-96.0); MONO % 10.1 % (2.0-8.0); NEUTROPHILS # 7.7 10^3/uL (1.5-8.5); NEUTROPHILS % 76.5 % (36.0-66.0); PLATELET COUNT, AUTOMATED 169 10^3/uL (150-450); RED BLOOD COUNT 4.62 10^6/uL (4.00-5.40); WHITE BLOOD COUNT 10.1 10^3/uL (4.0-10.0)
[2023-10-22 06:42] LABS: CALCIUM LEVEL 9.1 MG/DL (8.3-10.6); CREATININE FOR GFR 1.69 MG/DL (0.55-1.30); GLOMERULAR FILTRATION RATE 31.8 (>39); POTASSIUM SERUM 4.1 MMOL/L (3.5-5.1)
[2023-10-22] MEDS: predniSONE 20 MG TAB PO SCH (08:33)
[2023-10-22 08:35] VITALS: BP 131/69
[2023-10-22] MEDS ORDERED: INSU100I48 SQ (10:21)
[2023-10-22] MEDS ORDERED: LEVO1TAB40 PO (10:22)
[2023-10-22] MEDS ORDERED: CARV12.5 PO (10:23)
[2023-10-22] MEDS ORDERED: FURO40TA2 PO (10:23)
== END 2023-10-22 13:00 | disposition home or self-care (01) | DRG 698 ==
LOC: EDBD 14:17 → M ED 14:17 → M ED INP 16:48 → M MS5PR 16:48 → M PCU 18:17 → M MS5PR 10-19 17:15
PROVIDERS: ADMIT General Practice; ATTEND Internal Medicine
DX: T83.518A Infection and inflammatory reaction due to other urinary catheter, initial encounter (principal); A41.9 Sepsis, unspecified organism; G93.41 Metabolic encephalopathy; I13.0 Hypertensive heart and chronic kidney disease with heart failure and stage 1 through stage 4 chronic kidney disease, or unspecified chronic kidney disease; J44.1 Chronic obstructive pulmonary disease with (acute) exacerbation; I50.32 Chronic diastolic (congestive) heart failure; E87.1 Hypo-osmolality and hyponatremia; N17.9 Acute kidney failure, unspecified; F11.20 Opioid dependence, uncomplicated; J96.11 Chronic respiratory failure with hypoxia; N39.0 Urinary tract infection, site not specified; I27.20 Pulmonary hypertension, unspecified; E03.9 Hypothyroidism, unspecified; I27.81 Cor pulmonale (chronic); E11.22 Type 2 diabetes mellitus with diabetic chronic kidney disease; N18.30 Chronic kidney disease, stage 3 unspecified; E78.5 Hyperlipidemia, unspecified; I25.10 Atherosclerotic heart disease of native coronary artery without angina pectoris; F17.210 Nicotine dependence, cigarettes, uncomplicated; R60.0 Localized edema; E86.0 Dehydration; E83.51 Hypocalcemia; R33.9 Retention of urine, unspecified; E11.65 Type 2 diabetes mellitus with hyperglycemia; E87.70 Fluid overload, unspecified; Z99.81 Dependence on supplemental oxygen; Z85.51 Personal history of malignant neoplasm of bladder; B96.5 Pseudomonas (aeruginosa) (mallei) (pseudomallei) as the cause of diseases classified elsewhere; Z79.899 Other long term (current) drug therapy; Z79.82 Long term (current) use of aspirin; Z79.4 Long term (current) use of insulin; K76.0 Fatty (change of) liver, not elsewhere classified; K74.60 Unspecified cirrhosis of liver; I71.20 Thoracic aortic aneurysm, without rupture, unspecified; L98.419 Non-pressure chronic ulcer of buttock with unspecified severity; Y84.6 Urinary catheterization as the cause of abnormal reaction of the patient, or of later complication, without mention of misadventure at the time of the procedure

== ENCOUNTER → 2023-10-29 | Outpatient (REF) | payer MEDICARE, MEDICAID ==
[~2023-10-29] MED LIST changes: +ALCOPAD25 TOP; +AZIT-12 PO; +BD P31MI2 SC; +CARV12.5 PO; +GLUCMIS7 XX; +INSU100I48 SQ; +INSU100V6 SC; +LANC1COM MC; +LEVO1TAB40 PO; +NICO21PAT TD
== END ==
LOC: M LAB REF 16:20
PROVIDERS: ATTEND Family Medicine Addiction Medicine
DX: R39.9 Unspecified symptoms and signs involving the genitourinary system (principal)

== ENCOUNTER → 2023-11-18 | Outpatient (REF) | payer MEDICARE, MEDICAID ==
[2023-11-18 19:02] LABS: ALBUMIN 3.4 G/DL (3.2-5.2); BILIRUBIN,TOTAL 0.4 MG/DL (0.3-1.2); CALCIUM LEVEL 9.3 MG/DL (8.3-10.6); CREATININE FOR GFR 1.35 MG/DL (0.55-1.30); GLOMERULAR FILTRATION RATE 41.2 (>39); POTASSIUM SERUM 3.6 MMOL/L (3.5-5.1)
== END ==
LOC: M LAB REF 17:10 → EEVIPCON 17:10
PROVIDERS: ATTEND Family Medicine Addiction Medicine
DX: N28.9 Disorder of kidney and ureter, unspecified (principal); E11.65 Type 2 diabetes mellitus with hyperglycemia

== ENCOUNTER 2023-12-04 15:31 | Emergency (ER) | payer MEDICARE, MEDICAID ==
[~2023-12-04] VITALS: Ht 149.9 cm; Wt 87.1 kg
[2023-12-04] MEDS: TETRACAINE 0.5% OPHTH SOLN 4ML OS ONE (17:09)
[2023-12-04] MEDS: FLUORESCEIN OPHTH 1MG STRIP OS ONE (17:09)
[2023-12-04 18:09] LABS: BASO # 0.1 10^3/uL (0.0-0.2); BASO % 0.8 % (0.0-1.0); EOS # 0.2 10^3/uL (0.0-0.5); EOS % 2.2 % (0.0-3.0); HEMATOCRIT 42.9 % (36.0-47.0); HEMOGLOBIN 13.7 g/dl (12.0-15.5); LYMPH % 11.1 % (24.0-44.0); MEAN CORPUSCULAR HEMOGLOBIN 29.8 pg (27.0-33.0); MEAN CORPUSCULAR HGB CONC 31.9 g/dl (32.0-36.5); MEAN CORPUSCULAR VOLUME 93.3 fl (80.0-96.0); MONO # 0.6 10^3/uL (0.0-0.8); MONO % 6.6 % (2.0-8.0); NEUTROPHILS # 7.3 10^3/uL (1.5-8.5); NEUTROPHILS % 78.8 % (36.0-66.0); PLATELET COUNT, AUTOMATED 166 10^3/uL (150-450); WHITE BLOOD COUNT 9.3 10^3/uL (4.0-10.0)
[2023-12-04 18:18] LABS: ERYTHROCYTE SEDIMENTATION RATE 64 mm/hr (0-30)
[2023-12-04 18:22] LABS: INR 0.99; PARTIAL THROMBOPLASTIN TIME 27.7 SECONDS (24.8-34.2); PROTHROMBIN TIME 12.8 SECONDS (12.5-14.5)
[2023-12-04 18:30] LABS: C REACTIVE PROTEIN QUANTITATIV 2.4 MG/DL (<1.0)
[2023-12-04 18:31] LABS: CALCIUM LEVEL 8.7 MG/DL (8.3-10.6); CREATININE FOR GFR 1.76 MG/DL (0.55-1.30); GLOMERULAR FILTRATION RATE 30.3 (>39); POTASSIUM SERUM 4.2 MMOL/L (3.5-5.1)
[2023-12-04 19:08] VITALS: BP 139/64; TEMP 97.7; O2SAT 95
[2023-12-04] MEDS: LORazepam 2 MG/ML 1ML VIAL IV STA (19:24)
== END 2023-12-04 20:15 | disposition left against medical advice (07) ==
LOC: M ED 15:31
DX: H53.132 Sudden visual loss, left eye (principal); I45.10 Unspecified right bundle-branch block; E11.9 Type 2 diabetes mellitus without complications; I10 Essential (primary) hypertension; E78.5 Hyperlipidemia, unspecified; J44.9 Chronic obstructive pulmonary disease, unspecified; K21.9 Gastro-esophageal reflux disease without esophagitis; N18.9 Chronic kidney disease, unspecified; M54.50 Low back pain, unspecified; F17.200 Nicotine dependence, unspecified, uncomplicated; Z86.79 Personal history of other diseases of the circulatory system; Z79.52 Long term (current) use of systemic steroids; Z79.82 Long term (current) use of aspirin; Z79.4 Long term (current) use of insulin; Z79.899 Other long term (current) drug therapy; Z53.9 Procedure and treatment not carried out, unspecified reason

== ENCOUNTER → 2024-02-14 | Outpatient (REF) | payer MEDICARE, MEDICAID ==
[2024-02-14 17:10] LABS: APPEARANCE, URINE HAZY (CLEAR); BACTERIA, URINE AUTO 2+ (NEGATIVE); BILIRUBIN, URINE AUTO NEGATIVE (NEGATIVE); BLOOD, URINE BLOOD 1+ (NEGATIVE); COLOR, URINE YELLOW (YELLOW); GLUCOSE, URINE (UA) AUTO NEGATIVE (NEGATIVE); KETONE, URINE AUTO NEGATIVE (NEGATIVE); LEUKOCYTE ESTERASE, URINE AUTO 3+ (NEGATIVE); NITRITE, URINE AUTO NEGATIVE (NEGATIVE); PROTEIN, URINE AUTO NEGATIVE (NEGATIVE); RBC, URINE AUTO 11 /HPF (0-3); SPECIFIC GRAVITY URINE AUTO 1.006 (1.002-1.035); SQUAMOUS EPITHELIAL CELL UR AU 8 /HPF (0-6); UROBILINOGEN, URINE AUTO 0.2 mg/dL (0.0-2.0); WBC, URINE AUTO TNTC /HPF (0-3)
== END ==
LOC: M LAB REF 16:13
PROVIDERS: ATTEND Family Medicine Addiction Medicine
DX: R39.0 Extravasation of urine (principal)

== ENCOUNTER → 2024-02-18 | Outpatient (REF) | payer MEDICARE, MEDICAID ==
[2024-02-18 18:17] LABS: APPEARANCE, URINE CLEAR (CLEAR); BACTERIA, URINE AUTO 1+ (NEGATIVE); BILIRUBIN, URINE AUTO NEGATIVE (NEGATIVE); BLOOD, URINE BLOOD NEGATIVE (NEGATIVE); COLOR, URINE STRAW (YELLOW); GLUCOSE, URINE (UA) AUTO NEGATIVE (NEGATIVE); KETONE, URINE AUTO NEGATIVE (NEGATIVE); LEUKOCYTE ESTERASE, URINE AUTO 3+ (NEGATIVE); MUCUS, URINE SMALL (NEGATIVE); NITRITE, URINE AUTO NEGATIVE (NEGATIVE); PROTEIN, URINE AUTO NEGATIVE (NEGATIVE); RBC, URINE AUTO 1 /HPF (0-3); SPECIFIC GRAVITY URINE AUTO 1.006 (1.002-1.035); SQUAMOUS EPITHELIAL CELL UR AU 0 /HPF (0-6); UROBILINOGEN, URINE AUTO 0.2 mg/dL (0.0-2.0); WBC, URINE AUTO 60 /HPF (0-3)
== END ==
LOC: M LAB REF 17:22
PROVIDERS: ATTEND Family Medicine Addiction Medicine
DX: R39.9 Unspecified symptoms and signs involving the genitourinary system (principal)

== ENCOUNTER → 2024-03-25 | Outpatient (REF) | payer MEDICARE, MEDICAID ==
[2024-03-25 18:50] LABS: FREE T4 1.23 NG/DL (0.89-1.76); THYROID STIMULATING HORMONE 23.344 uIU/ML (0.55-4.78)
== END ==
LOC: M LAB REF 17:35
PROVIDERS: ATTEND Internal Medicine Nephrology
DX: E03.9 Hypothyroidism, unspecified (principal)

== ENCOUNTER 2024-05-02 15:12 | Emergency (ER) | payer MEDICARE, MEDICAID ==
[~2024-05-02] VITALS: Ht 149.9 cm; Wt 90.0 kg
[~2024-05-02 15:12] MED LIST changes: +BACTDSTA PO; +SPIR-10 PO; +TORS100T PO; +TORS20TA2 PO
[2024-05-02 17:39] LABS: BASO # 0.1 10^3/uL (0.0-0.2); BASO % 0.5 % (0.0-1.0); EOS # 0.2 10^3/uL (0.0-0.5); EOS % 1.4 % (0.0-3.0); HEMOGLOBIN 15.4 g/dl (12.0-15.5); LYMPH # 0.6 10^3/uL (1.5-5.0); LYMPH % 4.7 % (24.0-44.0); MEAN CORPUSCULAR HEMOGLOBIN 28.6 pg (27.0-33.0); MEAN CORPUSCULAR HGB CONC 32.8 g/dl (32.0-36.5); MEAN CORPUSCULAR VOLUME 87.4 fl (80.0-96.0); MONO # 0.8 10^3/uL (0.0-0.8); MONO % 6.4 % (2.0-8.0); NEUTROPHILS % 86.3 % (36.0-66.0); PLATELET COUNT, AUTOMATED 181 10^3/uL (150-450); RED BLOOD COUNT 5.38 10^6/uL (4.00-5.40); WHITE BLOOD COUNT 12.7 10^3/uL (4.0-10.0)
[2024-05-02 17:43] LABS: ERYTHROCYTE SEDIMENTATION RATE 60 mm/hr (0-30)
[2024-05-02 18:12] LABS: C REACTIVE PROTEIN QUANTITATIV 2.33 MG/DL (<1.0); CALCIUM LEVEL 9.9 MG/DL (8.3-10.6); CREATININE FOR GFR 1.59 MG/DL (0.55-1.30); POTASSIUM SERUM 4.5 MMOL/L (3.5-5.1)
[2024-05-02 19:01] VITALS: TEMP 98.9
[2024-05-02 19:30] VITALS: BP 138/93; O2SAT 93
[2024-05-02] MEDS ORDERED: CEPH500C PO (19:37)
[2024-05-02] MEDS: CEPHALEXIN 500 MG CAP PO ONE (19:58)
== END 2024-05-02 20:06 | disposition home or self-care (01) ==
LOC: M ED 15:12
DX: L03.115 Cellulitis of right lower limb (principal); I25.10 Atherosclerotic heart disease of native coronary artery without angina pectoris; I50.9 Heart failure, unspecified; K76.0 Fatty (change of) liver, not elsewhere classified; J44.9 Chronic obstructive pulmonary disease, unspecified; Z99.81 Dependence on supplemental oxygen; E03.9 Hypothyroidism, unspecified; N18.6 End stage renal disease; Z79.82 Long term (current) use of aspirin; Z79.899 Other long term (current) drug therapy; Z79.4 Long term (current) use of insulin

== ENCOUNTER 2024-05-04 06:55 | Day surgery (SDC) | payer MEDICARE, MEDICAID ==
[~2024-05-04] VITALS: Ht 149.9 cm; Wt 90.2 kg
[2024-05-04] MEDS ORDERED: fentaNYL 100 MCG/2 ML INJECTION As Ordered ONE (06:58)
[2024-05-04] MEDS ORDERED: MIDAZOLAM INJ 2MG/2ML VIAL As Ordered ONE (06:58)
[2024-05-04] MEDS ORDERED: LR 1,000 ML IV SCH (07:00)
[2024-05-04] MEDS: ALBUTEROL SULFATE 2.5MG/0.5ML INH NEB SOLN NEB ONE (09:13)
[2024-05-04] MEDS ORDERED: GLUCAGON INJ 1MG VIAL SC PRN (09:30)
[2024-05-04] MEDS ORDERED: GLUCOSE 4 GM CHEW PO PRN (09:30)
[2024-05-04] MEDS ORDERED: DEXTROSE 50% 50ML SYRINGE IV PRN (09:30)
[2024-05-04] MEDS ORDERED: SODIUM CHLORIDE 0.9% 1000 ML IV ONE (09:30)
[2024-05-04] MEDS: INSULIN LISPRO (NovoLOG) PER UNIT SC PRN (09:50)
[2024-05-04] MEDS: TETRACAINE 0.5% OPHTH SOLN 4ML OS SCH (09:50)
[2024-05-04] MEDS: CYCLOPENTOLATE 1% OPHTH SOLN 2ML BTL OS SCH (09:50)
[2024-05-04] MEDS: PHENYLEPHRINE 2.5% OPHTH SOL 2ML OS SCH (09:50)
[2024-05-04] MEDS: FLURBIPROFEN 0.03% OPHTH SOLN 2.5 ML OS SCH (09:50)
[2024-05-04] MEDS: LIDOCAINE 1% SDV 5ML VIAL As Ordered ONE (10:20)
[2024-05-04] MEDS: CEFUROXIME 1MG/0.1ML INTRACAMERAL INJ As Ordered ONE (10:28)
[2024-05-04 10:38] VITALS: BP 139/77; TEMP 97.2; O2SAT 96
== END 2024-05-04 11:02 | disposition home or self-care (01) ==
LOC: M SDC 06:55
PROVIDERS: ATTEND Ophthalmology
DX: H25.12 Age-related nuclear cataract, left eye (principal); H25.042 Posterior subcapsular polar age-related cataract, left eye
CPT/HCPCS: 66984; J0697; J1815; J2250; J3010; V2632

== ENCOUNTER 2024-05-06 15:11 | Emergency (ER) | payer MEDICARE, MEDICAID ==
[~2024-05-06] VITALS: Ht 149.9 cm; Wt 86.9 kg
[2024-05-06 16:52] LABS: BASO # 0.1 10^3/uL (0.0-0.2); BASO % 0.7 % (0.0-1.0); EOS # 0.1 10^3/uL (0.0-0.5); EOS % 1.2 % (0.0-3.0); HEMATOCRIT 46.8 % (36.0-47.0); HEMOGLOBIN 15.5 g/dl (12.0-15.5); LYMPH # 0.5 10^3/uL (1.5-5.0); LYMPH % 4.7 % (24.0-44.0); MEAN CORPUSCULAR HEMOGLOBIN 28.7 pg (27.0-33.0); MEAN CORPUSCULAR HGB CONC 33.1 g/dl (32.0-36.5); MEAN CORPUSCULAR VOLUME 86.5 fl (80.0-96.0); MONO # 0.5 10^3/uL (0.0-0.8); MONO % 5.1 % (2.0-8.0); NEUTROPHILS # 9.2 10^3/uL (1.5-8.5); NEUTROPHILS % 87.9 % (36.0-66.0); PLATELET COUNT, AUTOMATED 181 10^3/uL (150-450); RED BLOOD COUNT 5.41 10^6/uL (4.00-5.40); WHITE BLOOD COUNT 10.5 10^3/uL (4.0-10.0)
[2024-05-06 16:57] LABS: ERYTHROCYTE SEDIMENTATION RATE 63 mm/hr (0-30)
[2024-05-06 17:20] LABS: C REACTIVE PROTEIN QUANTITATIV 1.66 MG/DL (<1.0); CALCIUM LEVEL 9.6 MG/DL (8.3-10.6); CREATININE FOR GFR 1.51 MG/DL (0.55-1.30); GLOMERULAR FILTRATION RATE 36.1 (>39); POTASSIUM SERUM 4.6 MMOL/L (3.5-5.1)
[2024-05-06 19:55] VITALS: BP 172/81; TEMP 97.3; O2SAT 97
== END 2024-05-06 20:05 | disposition home or self-care (01) ==
LOC: M ED 15:11
DX: L03.115 Cellulitis of right lower limb (principal); E11.9 Type 2 diabetes mellitus without complications; F17.200 Nicotine dependence, unspecified, uncomplicated; Z79.52 Long term (current) use of systemic steroids; Z79.82 Long term (current) use of aspirin; Z79.4 Long term (current) use of insulin; Z79.2 Long term (current) use of antibiotics; Z79.899 Other long term (current) drug therapy

== ENCOUNTER 2024-07-16 16:58 | Inpatient (IN) | payer MEDICAID, MEDICARE ==
[~2024-07-16] VITALS: Ht 149.9 cm; Wt 84.9 kg
[2024-07-16 18:29] LABS: BASO % 0.1 % (0.0-1.0); HEMATOCRIT 48.2 % (36.0-47.0); HEMOGLOBIN 16.3 g/dl (12.0-15.5); LYMPH # 0.2 10^3/uL (1.5-5.0); LYMPH % 1.6 % (24.0-44.0); MEAN CORPUSCULAR HEMOGLOBIN 29.6 pg (27.0-33.0); MEAN CORPUSCULAR HGB CONC 33.8 g/dl (32.0-36.5); MEAN CORPUSCULAR VOLUME 87.5 fl (80.0-96.0); MONO # 0.2 10^3/uL (0.0-0.8); MONO % 1.9 % (2.0-8.0); NEUTROPHILS # 11.4 10^3/uL (1.5-8.5); NEUTROPHILS % 95.9 % (36.0-66.0); PLATELET COUNT, AUTOMATED 181 10^3/uL (150-450); RED BLOOD COUNT 5.51 10^6/uL (4.00-5.40); WHITE BLOOD COUNT 11.9 10^3/uL (4.0-10.0)
[2024-07-16 19:10] LABS: ALBUMIN 3.2 G/DL (3.2-5.2); BILIRUBIN,DIRECT 0.2 MG/DL (<0.4); BILIRUBIN,TOTAL 0.6 MG/DL (0.3-1.2); CALCIUM LEVEL 8.5 MG/DL (8.3-10.6); CREATININE FOR GFR 2.08 MG/DL (0.55-1.30); GLOMERULAR FILTRATION RATE 24.9 (>39); POTASSIUM SERUM 6.6 MMOL/L (3.5-5.1); THYROID STIMULATING HORMONE 3.149 uIU/ML (0.55-4.78); THYROXINE (T4) 7.2 UG/DL (4.5-10.9); TOTAL PROTEIN 6.7 G/DL (5.7-8.2)
[2024-07-16] MEDS: HumuLIN R (REGULAR) INSULIN (NovoLIN R) **100U/ML** PER UNIT IV ONE ×2 (19:44→21:52)
[2024-07-16] MEDS: SODIUM BICARBONATE 8.4% INJ 50ML SYRINGE IV ONE (19:45)
[2024-07-16] MEDS: CALCIUM CHLORIDE 10% 1 GM/10 ML SYR IV ONE (19:48)
[2024-07-16] MEDS: NS 500 ML IV ONE (19:48)
[2024-07-16] MEDS: PATIROMER SORBITEX CALCIUM 8.4 GM POWDER PACKET (VELTASSA) PO ONE (20:06)
[2024-07-16 20:08] LABS: KETONE, URINE AUTO RFX TRACE mg/dL (NEGATIVE); MUCUS, URINE RFX SMALL (NEGATIVE); RBC, URINE AUTO RFX 11 /HPF (0-3); SQUAM EPITHELIAL CELL UR AURFX 3 /HPF (0-6); YEAST LIKE CELL URINE AUTO RFX SMALL
[2024-07-16 20:10] LABS: LEUKOCYTE ESTERASE UR AUTO RFX 3+ (NEGATIVE); NITRITE, URINE AUTO RFX POSITIVE (NEGATIVE); WBC, URINE AUTO RFX 40 /HPF (0-3)
[2024-07-16] MEDS: CEFEPIME HCL 1 GM in DEXTROSE 5% (D5W) ADV/MINI-BAG 50 ML IV ONE (21:10)
[2024-07-16] MEDS: IPRATROPIUM 0.5MG/ALBUTEROL 2.5MG INH SOL UD 3ML (DUONEB) NEB ONE (21:34)
[2024-07-16] MEDS: NS (Normal Saline) 0.9% 1,000 ML IV SCH ×2 (21:41→22:30)
[2024-07-16] MEDS ORDERED: GLUCAGON INJ 1MG VIAL SC PRN (22:05)
[2024-07-16] MEDS ORDERED: GLUCOSE 4 GM CHEW PO PRN (22:05)
[2024-07-16] MEDS ORDERED: MOM 30ML SUSPENSION UDC PO PRN (22:05)
[2024-07-16] MEDS ORDERED: ACETAMINOPHEN 325 MG TAB PO PRN (22:05)
[2024-07-16] MEDS ORDERED: DEXTROSE 50% 50ML SYRINGE IV PRN (22:05)
[2024-07-16 23:53] VITALS: BP 104/50; TEMP 97.1; O2SAT 91
[2024-07-17] MEDS ORDERED: MED REC IN PROGRESS XX SCH
[2024-07-17] MEDS: PIPERACILLIN/TAZOBACTAM SOD 4.5 GM in DEXTROSE 5% (D5W) ADV/MINI-BAG 50 ML IV SCH (00:22)
[2024-07-17] MEDS: INSULIN LISPRO (NovoLOG) PER UNIT SC SCH ×3 (00:26→08:49)
[2024-07-17] MEDS: INSULIN LISPRO (NovoLOG) PER UNIT SC ONE ×2 (00:27→06:09)
[2024-07-17 04:16] VITALS: BP 129/60; TEMP 97.6; O2SAT 91
[2024-07-17 05:01] LABS: HEMATOCRIT 39.8 % (36.0-47.0); MEAN CORPUSCULAR HEMOGLOBIN 29.9 pg (27.0-33.0); MEAN CORPUSCULAR HGB CONC 34.7 g/dl (32.0-36.5); MEAN CORPUSCULAR VOLUME 86.1 fl (80.0-96.0); PLATELET COUNT, AUTOMATED 168 10^3/uL (150-450); RED BLOOD COUNT 4.62 10^6/uL (4.00-5.40); WHITE BLOOD COUNT 12.9 10^3/uL (4.0-10.0)
[2024-07-17 05:13] LABS: HEMOGLOBIN 13.8 g/dl (12.0-15.5)
[2024-07-17 05:35] LABS: CALCIUM LEVEL 8.8 MG/DL (8.3-10.6); CREATININE FOR GFR 1.99 MG/DL (0.55-1.30); GLOMERULAR FILTRATION RATE 26.2 (>39); POTASSIUM SERUM 4.4 MMOL/L (3.5-5.1)
[2024-07-17] MEDS: TIOTROPIUM INHALER/CAPSULE (SPIRIVA) INH SCH (07:33)
[2024-07-17] MEDS: IPRATROPIUM 0.5MG/ALBUTEROL 2.5MG INH SOL UD 3ML (DUONEB) NEB SCH (07:33)
[2024-07-17 07:59] VITALS: BP 134/55; TEMP 97; O2SAT 95
[2024-07-17] MEDS: DOCUSATE SODIUM 100MG CAPSULE PO SCH (08:50)
[2024-07-17] MEDS ORDERED: MONTELUKAST 10 MG TAB PO SCH (09:00)
[2024-07-17] MEDS ORDERED: BUPRENORPHINE/NALOXONE 2-0.5MG SUBLINGUAL TABLET(SUBOXONE) SL SCH (09:00)
[2024-07-17] MEDS ORDERED: ENOXAPARIN 40MG/0.4ML SYRINGE (J1650 PER 10MG) SC SCH (09:00)
[2024-07-17] MEDS ORDERED: CALC1CAP31 PO (11:32)
[2024-07-17] MEDS: NS (Normal Saline) 0.9% 1,000 ML IV ONE (11:42)
[2024-07-17 11:52] LABS: HEMOGLOBIN A1c > 14.0 % (4.0-6.0)
[2024-07-17 12:10] VITALS: BP 129/69; TEMP 97.2; O2SAT 96
[2024-07-17] MEDS: LanTUS (INSULIN GLARGINE INJ) 1 UNITS/0.01 ML SC SCH (12:53)
[2024-07-17] MEDS ORDERED: CARV12.5 PO (13:05)
[2024-07-17] MEDS ORDERED: HOME MED LIST COMPLETE! XX SCH (13:10)
[2024-07-17 15:18] VITALS: BP 142/74; TEMP 97.9; O2SAT 96
[2024-07-17] MEDS: HEPARIN SOD (PORCINE) 5000UNITS/ML 1ML VIAL/SYRINGE SQ SCH (15:44)
[2024-07-17] MEDS: CALCITRIOL 0.25 MCG CAP (S0169) PO SCH (15:45)
[2024-07-17] MEDS: SIMVASTATIN 20 MG TAB PO SCH (15:45)
[2024-07-17] MEDS: SERTRALINE HCL 50 MG TAB PO SCH (15:45)
[2024-07-17] MEDS: ASPIRIN 81MG ENTERIC TABLET PO SCH (15:45)
[2024-07-17] MEDS: amLODIPine 5 MG TAB PO SCH (15:45)
[2024-07-17] MEDS: BUPRENORPHINE/NALOXONE 8-2MG SUBLINGUAL TABLET(SUBOXONE) SL SCH (15:52)
[2024-07-17] MEDS: BUPRENORPHINE/NALOXONE 2-0.5MG SUBLINGUAL TABLET(SUBOXONE) SL SCH (15:52)
[2024-07-17 19:39] VITALS: BP 136/64; TEMP 97; O2SAT 93
[2024-07-17] MEDS: CARVedilol 12.5 MG TAB PO SCH (20:37)
[2024-07-17 23:43] VITALS: BP 124/60; TEMP 96.4; O2SAT 97
[2024-07-18 03:47] VITALS: BP 138/77; TEMP 96; O2SAT 97
[2024-07-18 06:35] LABS: BASO % 0.2 % (0.0-1.0); EOS # 0.1 10^3/uL (0.0-0.5); EOS % 0.5 % (0.0-3.0); HEMATOCRIT 43.8 % (36.0-47.0); HEMOGLOBIN 14.6 g/dl (12.0-15.5); LYMPH # 0.7 10^3/uL (1.5-5.0); MEAN CORPUSCULAR HEMOGLOBIN 29.4 pg (27.0-33.0); MEAN CORPUSCULAR HGB CONC 33.3 g/dl (32.0-36.5); MEAN CORPUSCULAR VOLUME 88.3 fl (80.0-96.0); MONO # 0.7 10^3/uL (0.0-0.8); MONO % 7.3 % (2.0-8.0); NEUTROPHILS # 7.9 10^3/uL (1.5-8.5); NEUTROPHILS % 84.5 % (36.0-66.0); PLATELET COUNT, AUTOMATED 161 10^3/uL (150-450); RED BLOOD COUNT 4.96 10^6/uL (4.00-5.40); WHITE BLOOD COUNT 9.4 10^3/uL (4.0-10.0)
[2024-07-18 07:09] LABS: CALCIUM LEVEL 8.4 MG/DL (8.3-10.6); CREATININE FOR GFR 1.56 MG/DL (0.55-1.30); GLOMERULAR FILTRATION RATE 34.7 (>39); POTASSIUM SERUM 4.2 MMOL/L (3.5-5.1)
[2024-07-18 08:00] VITALS: BP 142/61; TEMP 97.3; O2SAT 98
[2024-07-18] MEDS: ERTAPENEM SODIUM 1 GM in NS MINI-BAG PLUS 50 ML IV SCH (08:37)
[2024-07-18] MEDS: LanTUS (INSULIN GLARGINE INJ) 1 UNITS/0.01 ML SC SCH (08:40)
[2024-07-18] MEDS: PROMETHAZINE 25 MG TAB PO PRN (10:38)
[2024-07-18 12:00] VITALS: BP 127/58; TEMP 97.4; O2SAT 98
[2024-07-18 14:30] VITALS: BP 104/48; TEMP 97.5; O2SAT 94
[2024-07-18 20:16] VITALS: BP 126/79; TEMP 97.3; O2SAT 97
[2024-07-19 03:18] VITALS: BP 129/63; TEMP 96.8; O2SAT 93
[2024-07-19 06:11] LABS: BASO % 0.4 % (0.0-1.0); EOS # 0.2 10^3/uL (0.0-0.5); EOS % 2.2 % (0.0-3.0); HEMATOCRIT 38.6 % (36.0-47.0); LYMPH % 15.1 % (24.0-44.0); MEAN CORPUSCULAR HEMOGLOBIN 29.1 pg (27.0-33.0); MEAN CORPUSCULAR HGB CONC 32.4 g/dl (32.0-36.5); MONO # 0.6 10^3/uL (0.0-0.8); MONO % 8.2 % (2.0-8.0); NEUTROPHILS % 73.5 % (36.0-66.0); PLATELET COUNT, AUTOMATED 149 10^3/uL (150-450); RED BLOOD COUNT 4.29 10^6/uL (4.00-5.40); WHITE BLOOD COUNT 6.7 10^3/uL (4.0-10.0)
[2024-07-19 06:15] LABS: HEMOGLOBIN 12.5 g/dl (12.0-15.5)
[2024-07-19 06:32] LABS: CALCIUM LEVEL 7.8 MG/DL (8.3-10.6); CREATININE FOR GFR 1.29 MG/DL (0.55-1.30); GLOMERULAR FILTRATION RATE 43.2 (>39)
[2024-07-19] MEDS: LACTOBACILLUS ACIDOPHILUS CAP (BACID) PO SCH (08:56)
[2024-07-19 12:00] VITALS: BP 122/66; TEMP 97.3; O2SAT 97
[2024-07-19 22:01] VITALS: BP 152/68; TEMP 97.2
[2024-07-20 04:00] VITALS: BP 142/92; TEMP 97.5; O2SAT 96
[2024-07-20 08:34] VITALS: BP 141/79
[2024-07-20] MEDS: ONDANSETRON 4MG 2ML VIAL IV PRN (08:51)
[2024-07-20] MEDS ORDERED: BACT800T5 PO (09:42)
[2024-07-20] MEDS ORDERED: LANTINJ4 SC (09:42)
[2024-07-20] MEDS ORDERED: INSU100V6 SC (09:42)
[2024-07-20] MEDS ORDERED: AMLO1TAB25 PO (09:42)
[2024-07-20] MEDS: FLUBLOK(EGGFREE) TRIVAL(24-25) VACCINE PF 0.5ML SYRINGE 18YRS & OLDER IM.IMMUN ONE (11:07)
== END 2024-07-20 11:35 | disposition home or self-care (01) | DRG 683 ==
LOC: M ED 16:58 → EDBD 16:58 → M ED INP 22:01 → M PCU 23:45 → M MSPAV 07-18 14:15
PROVIDERS: ADMIT Internal Medicine; ATTEND Internal Medicine
DX: N17.9 Acute kidney failure, unspecified (principal); N39.0 Urinary tract infection, site not specified; E87.1 Hypo-osmolality and hyponatremia; E87.20 Acidosis, unspecified; I50.32 Chronic diastolic (congestive) heart failure; F11.20 Opioid dependence, uncomplicated; J96.11 Chronic respiratory failure with hypoxia; I13.0 Hypertensive heart and chronic kidney disease with heart failure and stage 1 through stage 4 chronic kidney disease, or unspecified chronic kidney disease; T83.518A Infection and inflammatory reaction due to other urinary catheter, initial encounter; E87.5 Hyperkalemia; N18.9 Chronic kidney disease, unspecified; J44.9 Chronic obstructive pulmonary disease, unspecified; E11.22 Type 2 diabetes mellitus with diabetic chronic kidney disease; E11.65 Type 2 diabetes mellitus with hyperglycemia; E78.5 Hyperlipidemia, unspecified; F32.A Depression, unspecified; Z99.81 Dependence on supplemental oxygen; Z91.199 Patient's noncompliance with other medical treatment and regimen due to unspecified reason; F17.200 Nicotine dependence, unspecified, uncomplicated; Z85.51 Personal history of malignant neoplasm of bladder; Y84.6 Urinary catheterization as the cause of abnormal reaction of the patient, or of later complication, without mention of misadventure at the time of the procedure; B96.20 Unspecified Escherichia coli [E. coli] as the cause of diseases classified elsewhere; I27.20 Pulmonary hypertension, unspecified; Z79.899 Other long term (current) drug therapy; Z79.4 Long term (current) use of insulin; Z79.82 Long term (current) use of aspirin

== ENCOUNTER 2024-08-04 10:27 | Emergency (ER) | payer MEDICARE ==
[~2024-08-04] VITALS: Ht 149.9 cm; Wt 90.7 kg
[~2024-08-04 10:27] MED LIST changes: +BACT800T5 PO; +CALC1CAP31 PO
[2024-08-04 10:45] VITALS: BP 174/79; TEMP 98.4; O2SAT 91
[2024-08-04 13:58] LABS: KETONE, URINE AUTO RFX NEGATIVE (NEGATIVE); NITRITE, URINE AUTO RFX NEGATIVE (NEGATIVE); RBC, URINE AUTO RFX TNTC /HPF (0-3); SQUAM EPITHELIAL CELL UR AURFX 0 /HPF (0-6)
[2024-08-04 14:00] LABS: LEUKOCYTE ESTERASE UR AUTO RFX 3+ (NEGATIVE); WBC, URINE AUTO RFX TNTC /HPF (0-3)
[2024-08-04 14:50] LABS: BASO # 0.1 10^3/uL (0.0-0.2); BASO % 0.5 % (0.0-1.0); EOS # 0.1 10^3/uL (0.0-0.5); EOS % 0.5 % (0.0-3.0); HEMATOCRIT 43.1 % (36.0-47.0); HEMOGLOBIN 14.1 g/dl (12.0-15.5); LYMPH # 0.8 10^3/uL (1.5-5.0); MEAN CORPUSCULAR HEMOGLOBIN 29.8 pg (27.0-33.0); MEAN CORPUSCULAR HGB CONC 32.7 g/dl (32.0-36.5); MEAN CORPUSCULAR VOLUME 91.1 fl (80.0-96.0); MONO # 0.5 10^3/uL (0.0-0.8); NEUTROPHILS # 8.2 10^3/uL (1.5-8.5); NEUTROPHILS % 85.5 % (36.0-66.0); PLATELET COUNT, AUTOMATED 150 10^3/uL (150-450); RED BLOOD COUNT 4.73 10^6/uL (4.00-5.40); WHITE BLOOD COUNT 9.6 10^3/uL (4.0-10.0)
[2024-08-04] MEDS ORDERED: SULF1TAB23 PO (15:56)
== END 2024-08-04 16:33 | disposition home or self-care (01) ==
LOC: M ED 10:27 → EDBD 10:27 → M ED 16:33
DX: N39.0 Urinary tract infection, site not specified (principal); E11.9 Type 2 diabetes mellitus without complications; I10 Essential (primary) hypertension; K21.9 Gastro-esophageal reflux disease without esophagitis; J44.9 Chronic obstructive pulmonary disease, unspecified; F17.200 Nicotine dependence, unspecified, uncomplicated; Z86.79 Personal history of other diseases of the circulatory system; Z90.89 Acquired absence of other organs; Z79.52 Long term (current) use of systemic steroids; Z79.4 Long term (current) use of insulin; Z79.82 Long term (current) use of aspirin; Z79.899 Other long term (current) drug therapy; Z79.2 Long term (current) use of antibiotics

== ENCOUNTER → 2024-09-23 | Outpatient (REF) | payer MEDICARE, MEDICAID ==
[~2024-09-23] MED LIST changes: +SULF1TAB23 PO
[2024-09-23 18:42] LABS: FREE T4 1.09 NG/DL (0.89-1.76); THYROID STIMULATING HORMONE 9.136 uIU/ML (0.55-4.78)
== END ==
LOC: M LAB REF 17:21
PROVIDERS: ATTEND Internal Medicine Nephrology
DX: E03.9 Hypothyroidism, unspecified (principal)

== ENCOUNTER 2024-11-16 11:57 | Emergency (ER) | payer MEDICARE, MEDICAID ==
[~2024-11-16] VITALS: Ht 121.9 cm; Wt 90.9 kg
[2024-11-16 13:26] LABS: BASO # 0.1 10^3/uL (0.0-0.2); BASO % 0.5 % (0.0-1.0); EOS # 0.3 10^3/uL (0.0-0.5); EOS % 2.1 % (0.0-3.0); LYMPH # 0.8 10^3/uL (1.5-5.0); LYMPH % 6.4 % (24.0-44.0); MONO # 0.7 10^3/uL (0.0-0.8); MONO % 5.9 % (2.0-8.0); NEUTROPHILS # 10.2 10^3/uL (1.5-8.5); NEUTROPHILS % 84.5 % (36.0-66.0); PLATELET COUNT, AUTOMATED 172 10^3/uL (150-450)
[2024-11-16] MEDS: IPRATROPIUM 0.5 MG/ALBUTEROL 2.5 MG INH SOL UD 3 ML NEB PRN (13:41)
[2024-11-16 13:46] LABS: CK-MB VALUE MASS 1.1 NG/ML (<3.6)
[2024-11-16 13:48] LABS: ALT/SGPT 10 U/L (7.0-40); AST/SGOT 22 U/L (<34); CALCIUM LEVEL 9.2 MG/DL (8.3-10.6); CARBON DIOXIDE LEVEL 29 MMOL/L (20-31); CHLORIDE LEVEL 97 MMOL/L (98-107); CREATININE FOR GFR 1.73 MG/DL (0.55-1.30); GLOMERULAR FILTRATION RATE 31.0 (>39); POTASSIUM SERUM 4.6 MMOL/L (3.5-5.1); SODIUM LEVEL 140 MMOL/L (136-145)
[2024-11-16 13:53] LABS: FREE T4 1.52 NG/DL (0.89-1.76)
[2024-11-16 13:54] LABS: CPK CREATINE PHOSPHOKINASE 53 U/L (34-145); MB/CK RELATIVE INDEX 2.07 (< OR =4)
[2024-11-16] MEDS ORDERED: TREL1AER INH (14:54)
[2024-11-16] MEDS ORDERED: INSU100I24 INJ (14:54)
[2024-11-16] MEDS ORDERED: LOSA25TA13 PO (14:54)
[2024-11-16] MEDS ORDERED: LANTINJ4 SC (14:54)
[2024-11-16] MEDS ORDERED: HOME MED LIST COMPLETE! XX SCH (14:55)
[2024-11-16 15:02] LABS: CK-MB VALUE MASS 1.1 NG/ML (<3.6)
[2024-11-16 15:04] VITALS: O2SAT 98
[2024-11-16 15:06] LABS: CPK CREATINE PHOSPHOKINASE 46.0 U/L (34-145); MB/CK RELATIVE INDEX 2.39 (< OR =4)
[2024-11-16] MEDS ORDERED: PRED20TA PO (15:20)
[2024-11-16 15:26] VITALS: BP 118/56; TEMP 97.6; O2SAT 97
== END 2024-11-16 15:36 | disposition home or self-care (01) ==
LOC: EDBD 11:57 → M ED 11:57
DX: J44.1 Chronic obstructive pulmonary disease with (acute) exacerbation (principal); E11.9 Type 2 diabetes mellitus without complications; I10 Essential (primary) hypertension; E78.5 Hyperlipidemia, unspecified; N18.9 Chronic kidney disease, unspecified; C67.9 Malignant neoplasm of bladder, unspecified; F17.200 Nicotine dependence, unspecified, uncomplicated; Z79.52 Long term (current) use of systemic steroids; Z79.82 Long term (current) use of aspirin; Z79.4 Long term (current) use of insulin; Z79.899 Other long term (current) drug therapy
CPT/HCPCS: 71046; 80048; 80076; 82550; 82553; 83880; 84439; 84443; 84484; 85025; 87486; 87581; 87633; 87798; 93005; 93041; 94640; 94760; 96374; 99285; J2919

== ENCOUNTER → 2024-11-23 | Outpatient (REF) | payer MEDICARE, MEDICAID ==
[~2024-11-23] MED LIST changes: +INSU100I24 INJ; +LOSA25TA13 PO; +TREL1AER INH
== END ==
LOC: M LAB REF 16:39
PROVIDERS: ATTEND Family Medicine Addiction Medicine
DX: R39.89 Other symptoms and signs involving the genitourinary system (principal)

== ENCOUNTER 2025-01-14 09:50 | Inpatient (IN) | payer MEDICARE, MEDICAID ==
[~2025-01-14] VITALS: Ht 149.9 cm; Wt 98.1 kg
[~2025-01-14 09:50] MED LIST changes: +METH-1100 PO; -METH-855 PO
[2025-01-14 10:38] LABS: VENOUS BASE EXCESS 0.7 (-2.0-2.0); VENOUS HCO3 28.1 MMOL/L (23.0-27.0); VENOUS O2 SATURATION 87.0 % (60.0-80.0); VENOUS PARTIAL PRESSURE CO2 57.7 mmHg (38.0-50.0); VENOUS PARTIAL PRESSURE O2 49.8 mmHg (30.0-50.0); VENOUS PH 7.306 UNITS (7.330-7.430); VENOUS STANDARD HCO3 24.8 MMOL/L; VENOUS TOTAL CO2 29.9 MMOL/L (24.0-28.0)
[2025-01-14 10:46] LABS: BASO # 0.1 10^3/uL (0.0-0.2); BASO % 0.6 % (0.0-1.0); EOS # 0.2 10^3/uL (0.0-0.5); EOS % 2.4 % (0.0-3.0); LYMPH # 0.8 10^3/uL (1.5-5.0); LYMPH % 8.1 % (24.0-44.0); MONO # 0.7 10^3/uL (0.0-0.8); MONO % 7.7 % (2.0-8.0); NEUTROPHILS # 7.6 10^3/uL (1.5-8.5); NEUTROPHILS % 80.6 % (36.0-66.0); PLATELET COUNT, AUTOMATED 165 10^3/uL (150-450)
[2025-01-14 11:12] LABS: ALT/SGPT 16 U/L (7.0-40); AST/SGOT 24 U/L (<34); CALCIUM LEVEL 8.6 MG/DL (8.3-10.6); CARBON DIOXIDE LEVEL 31 MMOL/L (20-31); CHLORIDE LEVEL 98 MMOL/L (98-107); CREATININE FOR GFR 1.62 MG/DL (0.55-1.30); GLOMERULAR FILTRATION RATE 33.6 (>39); POTASSIUM SERUM 3.9 MMOL/L (3.5-5.1); SODIUM LEVEL 138 MMOL/L (136-145)
[2025-01-14] MEDS: ONDANSETRON 4MG 2ML VIAL IV ONE (12:24)
[2025-01-14] MEDS: ACETAMINOPHEN *IV* 1,000 MG in IV 1 EA IV ONE (12:25)
[2025-01-14] MEDS: VANCOMYCIN HCL 2,000 MG, VIAL MATE ADAPTER 1 EACH in NS 500 ML IV ONE (12:25)
[2025-01-14 12:34] LABS: C REACTIVE PROTEIN QUANTITATIV 1.38 MG/DL (<1.0)
[2025-01-14 13:11] LABS: ERYTHROCYTE SEDIMENTATION RATE 50 mm/hr (0-30)
[2025-01-14] MEDS: IPRATROPIUM 0.5 MG/ALBUTEROL 2.5 MG INH SOL UD 3 ML NEB PRN (14:25)
[2025-01-14] MEDS ORDERED: GLUCOSE 4 GM CHEW PO PRN (14:30)
[2025-01-14] MEDS ORDERED: ACETAMINOPHEN 325 MG TAB PO PRN (14:30)
[2025-01-14] MEDS ORDERED: GLUCAGON INJ 1 MG VIAL SC PRN (14:30)
[2025-01-14] MEDS ORDERED: DEXTROSE 50% 50 ML SYRINGE IV PRN (14:30)
[2025-01-14] MEDS ORDERED: VANCOMYCIN HCL 1,000 MG, VIAL MATE ADAPTER 1 EACH in NS 250 ML IV SCH (14:30)
[2025-01-14] MEDS ORDERED: ALBUTEROL SULFATE 2.5 MG/0.5 ML INH CONCENTRATE NEB SOLN NEB PRN (14:30)
[2025-01-14 14:48] LABS: ABG BASE EXCESS 0.6 (-2.0-2.0); ABG HCO3 29.2 MMOL/L (22.0-26.0); ABG O2 SATURATION 91.7 % (95.0-99.0); ABG PARTIAL PRESSURE O2 66.4 mmHg (75.0-100.0); ABG STANDARD HCO3 24.9 MMOL/L. (22.0-26.0); ABG TOTAL CO2 31.2 MMOL/L (23.0-31.0); ABG pH (ARTERIAL) 7.263 UNITS (7.350-7.450)
[2025-01-14 14:49] LABS: ABG PARTIAL PRESSURE CO2 66.1 mmHg (35.0-45.0)
[2025-01-14] MEDS ORDERED: DOCU100C16 PO (14:57)
[2025-01-14] MEDS ORDERED: LANTINJ4 SC (14:57)
[2025-01-14] MEDS ORDERED: HOME MED LIST COMPLETE! XX SCH (15:00)
[2025-01-14] MEDS: IPRATROPIUM 0.5 MG/ALBUTEROL 2.5 MG INH SOL UD 3 ML NEB SCH (15:20)
[2025-01-14 15:44] LABS: PLATELET COUNT, AUTOMATED 185 10^3/uL (150-450)
[2025-01-14 16:03] LABS: INR 0.91
[2025-01-14 16:07] LABS: ALT/SGPT 18.0 U/L (7.0-40); AST/SGOT 29.0 U/L (<34); CALCIUM LEVEL 8.4 MG/DL (8.3-10.6); CARBON DIOXIDE LEVEL 30.0 MMOL/L (20-31); CHLORIDE LEVEL 99.0 MMOL/L (98-107); CREATININE FOR GFR 1.71 MG/DL (0.55-1.30); FREE T4 1.08 NG/DL (0.89-1.76); GLOMERULAR FILTRATION RATE 31.4 (>39); POTASSIUM SERUM 4.8 MMOL/L (3.5-5.1); SODIUM LEVEL 137.0 MMOL/L (136-145)
[2025-01-14 16:25] VITALS: BP 131/62; TEMP 97.6; O2SAT 100
[2025-01-14] MEDS: FUROSEMIDE 100 MG/10 ML VIAL IV SCH (17:18)
[2025-01-14] MEDS: PIPERACILLIN/TAZOBACTAM SOD 3.375 GM in DEXTROSE 5% (D5W) ADV/MINI-BAG 50 ML IV SCH (17:19)
[2025-01-14] MEDS: NICOTINE 21 MG/24 HR 1 EA TRANSDERMAL TD SCH (17:19)
[2025-01-14] MEDS: INSULIN LISPRO (NovoLOG) PER UNIT SC SCH ×3 (18:40→21:00)
[2025-01-14 19:48] VITALS: BP 140/65; TEMP 97.5; O2SAT 97
[2025-01-14] MEDS: SYMBICORT 160/4.5MCG INHALER 6GM INH SCH (20:18)
[2025-01-14 21:47] LABS: ABG BASE EXCESS -0.7 (-2.0-2.0); ABG HCO3 27.7 MMOL/L (22.0-26.0); ABG O2 SATURATION 97.4 % (95.0-99.0); ABG PARTIAL PRESSURE O2 99.6 mmHg (75.0-100.0); ABG STANDARD HCO3 23.9 MMOL/L. (22.0-26.0); ABG TOTAL CO2 29.6 MMOL/L (23.0-31.0); ABG pH (ARTERIAL) 7.259 UNITS (7.350-7.450)
[2025-01-14 21:48] LABS: ABG PARTIAL PRESSURE CO2 63.3 mmHg (35.0-45.0)
[2025-01-14] MEDS: LanTUS (INSULIN GLARGINE INJ) 1 UNITS/0.01 ML SC SCH (21:58)
[2025-01-14] MEDS: DOCUSATE SODIUM 100 MG CAPSULE PO SCH (21:58)
[2025-01-14] MEDS: METHENAMINE HIPPURATE 1 GM TABLET PO SCH (22:07)
[2025-01-15] VITALS (47 sets, daily range): BP systolic 102–140; BP diastolic 51–79; TEMP 97.2–98.3; O2SAT 90–99
[2025-01-15 02:45] LABS: ABG BASE EXCESS -2.1 (-2.0-2.0); ABG HCO3 26.4 MMOL/L (22.0-26.0); ABG O2 SATURATION 95.1 % (95.0-99.0); ABG PARTIAL PRESSURE O2 83.0 mmHg (75.0-100.0); ABG STANDARD HCO3 22.6 MMOL/L. (22.0-26.0); ABG TOTAL CO2 28.4 MMOL/L (23.0-31.0)
[2025-01-15 02:48] LABS: ABG pH (ARTERIAL) 7.235 UNITS (7.350-7.450)
[2025-01-15 02:49] LABS: ABG PARTIAL PRESSURE CO2 63.8 mmHg (35.0-45.0)
[2025-01-15] MEDS: FUROSEMIDE 100 MG/10 ML VIAL IV STA (03:10)
[2025-01-15] MEDS ORDERED: NOREPINEPHRINE 4 MG IN D5W 250 ML IVBAG (16 MCG/ML) As Ordered ONE (03:25)
[2025-01-15] MEDS ORDERED: PHENYLEPHRINE 10MG/ML 1ML VIAL As Ordered ONE (03:28)
[2025-01-15] MEDS ORDERED: PHENYLephrine 500MCG 5ML (100MCG/ML) SYRINGE As Ordered ONE (03:29)
[2025-01-15] MEDS ORDERED: PROPOFOL 1,000 MG/100 ML VIAL As Ordered ONE (03:41)
[2025-01-15] MEDS: ROCURONIUM BROMIDE 50MG/5ML VIAL IV STA (04:00)
[2025-01-15] MEDS: MIDAZOLAM INJ 2 MG/2 ML VIAL IV PRN (04:31)
[2025-01-15 05:25] LABS: ABG BASE EXCESS 2.4 (-2.0-2.0); ABG HCO3 26.5 MMOL/L (22.0-26.0); ABG O2 SATURATION 94.6 % (95.0-99.0); ABG PARTIAL PRESSURE CO2 39.2 mmHg (35.0-45.0); ABG PARTIAL PRESSURE O2 63.1 mmHg (75.0-100.0); ABG STANDARD HCO3 26.6 MMOL/L. (22.0-26.0); ABG TOTAL CO2 27.7 MMOL/L (23.0-31.0); ABG pH (ARTERIAL) 7.448 UNITS (7.350-7.450)
[2025-01-15] MEDS: TIOTROPIUM BROM 2.5MCG/ACTUATION 4GM INH INH SCH (08:00)
[2025-01-15 08:15] LABS: VANCOMYCIN RANDOM 13.9 UG/ML
[2025-01-15 08:45] LABS: BASO # 0.0 10^3/uL (0.0-0.2); BASO % 0.1 % (0.0-1.0); EOS # 0.0 10^3/uL (0.0-0.5); EOS % 0.1 % (0.0-3.0); LYMPH # 0.6 10^3/uL (1.5-5.0); LYMPH % 5.8 % (24.0-44.0); MONO # 0.4 10^3/uL (0.0-0.8); MONO % 3.8 % (2.0-8.0); NEUTROPHILS # 8.7 10^3/uL (1.5-8.5); NEUTROPHILS % 89.5 % (36.0-66.0)
[2025-01-15 08:54] LABS: ALT/SGPT 16.0 U/L (7.0-40); AST/SGOT 25.0 U/L (<34); CALCIUM LEVEL 8.5 MG/DL (8.3-10.6); CARBON DIOXIDE LEVEL 27.0 MMOL/L (20-31); CHLORIDE LEVEL 98.0 MMOL/L (98-107); CREATININE FOR GFR 2.14 MG/DL (0.55-1.30); GLOMERULAR FILTRATION RATE 24.0 (>39); MAGNESIUM LEVEL 2.1 MG/DL (1.8-2.4); PHOSPHORUS LEVEL 3.7 MG/DL (2.4-5.1); POTASSIUM SERUM 4.5 MMOL/L (3.5-5.1); SODIUM LEVEL 138.0 MMOL/L (136-145)
[2025-01-15] MEDS ORDERED: VANCOMYCIN HCL 1,000 MG, VIAL MATE ADAPTER 1 EACH in NS 250 ML IV SCH (09:00)
[2025-01-15] MEDS: ASPIRIN 81 MG ENTERIC TABLET PO SCH (09:00)
[2025-01-15] MEDS: CALCITRIOL 0.25 MCG CAP (S0169) PO SCH (09:00)
[2025-01-15 09:28] LABS: PLATELET COUNT, AUTOMATED 160 10^3/uL (150-450)
[2025-01-15] MEDS: LanTUS (INSULIN GLARGINE INJ) 1 UNITS/0.01 ML SC SCH (09:44)
[2025-01-15] MEDS: MONTELUKAST 10 MG TAB PO SCH (09:45)
[2025-01-15] MEDS: SERTRALINE HCL 50 MG TAB PO SCH (09:46)
[2025-01-15] MEDS: amLODIPine 10 MG TAB PO SCH (09:47)
[2025-01-15] MEDS: VANCOMYCIN HCL 500 MG in DEXTROSE 5% (D5W) MINI-BAG PLU 100 ML IV SCH (11:02)
[2025-01-15] MEDS: PANTOPRAZOLE 40MG VIAL IV SCH (11:02)
[2025-01-15] MEDS: HEPARIN SOD 5000 UNITS/ML 1 ML VIAL/SYRINGE SQ SCH (13:11)
[2025-01-15] MEDS: PIPERACILLIN/TAZOBACTAM SOD 4.5 GM in DEXTROSE 5% (D5W) ADV/MINI-BAG 50 ML IV SCH (13:11)
[2025-01-15] MEDS ORDERED: GLUCOSE 4 GM CHEW PO PRN (17:15)
[2025-01-15] MEDS ORDERED: GLUCAGON INJ 1 MG VIAL SC PRN (17:15)
[2025-01-15] MEDS ORDERED: DEXTROSE 50% 50 ML SYRINGE IV PRN (17:15)
[2025-01-15] MEDS: INSULIN LISPRO (NovoLOG) PER UNIT SC SCH (17:52)
[2025-01-16] VITALS (33 sets, daily range): BP systolic 112–153; BP diastolic 56–80; TEMP 97.9–98.9; O2SAT 94–98
[2025-01-16] MEDS: ACETAMINOPHEN *IV* 1,000 MG in IV 1 EA IV ONE (02:06)
[2025-01-16 04:23] LABS: BASO # 0.0 10^3/uL (0.0-0.2); BASO % 0.1 % (0.0-1.0); EOS # 0.0 10^3/uL (0.0-0.5); EOS % 0.0 % (0.0-3.0); LYMPH # 0.6 10^3/uL (1.5-5.0); LYMPH % 5.3 % (24.0-44.0); MONO # 1.0 10^3/uL (0.0-0.8); MONO % 9.4 % (2.0-8.0); NEUTROPHILS # 9.4 10^3/uL (1.5-8.5); NEUTROPHILS % 84.7 % (36.0-66.0); PLATELET COUNT, AUTOMATED 186 10^3/uL (150-450)
[2025-01-16 04:49] LABS: ALT/SGPT 14.0 U/L (7.0-40); AST/SGOT 40.0 U/L (<34); CALCIUM LEVEL 8.3 MG/DL (8.3-10.6); CARBON DIOXIDE LEVEL 30.0 MMOL/L (20-31); CHLORIDE LEVEL 96.0 MMOL/L (98-107); CREATININE FOR GFR 2.21 MG/DL (0.55-1.30); GLOMERULAR FILTRATION RATE 23.1 (>39); MAGNESIUM LEVEL 2.3 MG/DL (1.8-2.4); PHOSPHORUS LEVEL 4.8 MG/DL (2.4-5.1); POTASSIUM SERUM 4.0 MMOL/L (3.5-5.1); SODIUM LEVEL 135.0 MMOL/L (136-145)
[2025-01-16] MEDS: PANTOPRAZOLE 40MG VIAL IV SCH (09:40)
[2025-01-16] MEDS: LanTUS (INSULIN GLARGINE INJ) 1 UNITS/0.01 ML SC SCH (09:41)
[2025-01-16 18:59] LABS: APPEARANCE, URINE HAZY (CLEAR); BACTERIA, URINE AUTO NEGATIVE (NEGATIVE); BILIRUBIN, URINE AUTO NEGATIVE (NEGATIVE); BLOOD, URINE BLOOD 1+ (NEGATIVE); GLUCOSE, URINE (UA) AUTO NEGATIVE (NEGATIVE); KETONE, URINE AUTO NEGATIVE (NEGATIVE); LEUKOCYTE ESTERASE, URINE AUTO 3+ (NEGATIVE); MUCUS, URINE SMALL (NEGATIVE); NITRITE, URINE AUTO NEGATIVE (NEGATIVE); PROTEIN, URINE AUTO NEGATIVE (NEGATIVE); RBC, URINE AUTO 24 /HPF (0-3); SPECIFIC GRAVITY URINE AUTO 1.009 (1.002-1.035); SQUAMOUS EPITHELIAL CELL UR AU 15 /HPF (0-6); UROBILINOGEN, URINE AUTO 0.2 mg/dL (0.0-2.0); WBC, URINE AUTO 59 /HPF (0-3)
[2025-01-16] MEDS: LanTUS (INSULIN GLARGINE INJ) 1 UNITS/0.01 ML SC ONE (21:11)
[2025-01-17] VITALS (26 sets, daily range): BP systolic 131–171; BP diastolic 60–79; TEMP 97.1–98.3; O2SAT 85–97
[2025-01-17 09:22] LABS: ABG BASE EXCESS 8.9 (-2.0-2.0); ABG HCO3 35.5 MMOL/L (22.0-26.0); ABG O2 SATURATION 94.2 % (95.0-99.0); ABG PARTIAL PRESSURE CO2 56.6 mmHg (35.0-45.0); ABG PARTIAL PRESSURE O2 74.6 mmHg (75.0-100.0); ABG STANDARD HCO3 32.6 MMOL/L. (22.0-26.0); ABG TOTAL CO2 37.2 MMOL/L (23.0-31.0); ABG pH (ARTERIAL) 7.415 UNITS (7.350-7.450)
[2025-01-17 09:37] LABS: BASO # 0.0 10^3/uL (0.0-0.2); BASO % 0.1 % (0.0-1.0); EOS # 0.0 10^3/uL (0.0-0.5); EOS % 0.0 % (0.0-3.0); LYMPH # 0.6 10^3/uL (1.5-5.0); LYMPH % 5.8 % (24.0-44.0); MONO # 0.8 10^3/uL (0.0-0.8); MONO % 8.2 % (2.0-8.0); NEUTROPHILS # 8.8 10^3/uL (1.5-8.5); NEUTROPHILS % 85.6 % (36.0-66.0); PLATELET COUNT, AUTOMATED 192 10^3/uL (150-450)
[2025-01-17 10:04] LABS: ALT/SGPT 15.0 U/L (7.0-40); AST/SGOT 54.0 U/L (<34); CALCIUM LEVEL 8.4 MG/DL (8.3-10.6); CARBON DIOXIDE LEVEL 35.0 MMOL/L (20-31); CHLORIDE LEVEL 99.0 MMOL/L (98-107); CREATININE FOR GFR 1.8 MG/DL (0.55-1.30); GLOMERULAR FILTRATION RATE 29.6 (>39); MAGNESIUM LEVEL 2.4 MG/DL (1.8-2.4); PHOSPHORUS LEVEL 5.7 MG/DL (2.4-5.1); POTASSIUM SERUM 4.2 MMOL/L (3.5-5.1); SODIUM LEVEL 142.0 MMOL/L (136-145)
[2025-01-17] MEDS: LanTUS (INSULIN GLARGINE INJ) 1 UNITS/0.01 ML SC ONE (10:28)
[2025-01-17] MEDS ORDERED: GLUCAGON INJ 1 MG VIAL SC PRN (17:15)
[2025-01-17] MEDS ORDERED: DEXTROSE 50% 50 ML SYRINGE IV PRN (17:15)
[2025-01-17] MEDS ORDERED: GLUCOSE 4 GM CHEW PO PRN (17:15)
[2025-01-17] MEDS: INSULIN LISPRO (NovoLOG) PER UNIT SC SCH ×2 (17:42→20:27)
[2025-01-17] MEDS: hydrALAZINE 20 MG/ML 1 ML VIAL IV PRN (23:47)
[2025-01-18] VITALS (8 sets, daily range): BP systolic 130–174; BP diastolic 58–71; TEMP 97.4–98; O2SAT 92–95
[2025-01-18 05:06] LABS: BASO # 0.0 10^3/uL (0.0-0.2); BASO % 0.0 % (0.0-1.0); EOS # 0.0 10^3/uL (0.0-0.5); EOS % 0.0 % (0.0-3.0); LYMPH # 0.5 10^3/uL (1.5-5.0); LYMPH % 6.5 % (24.0-44.0); MONO # 0.3 10^3/uL (0.0-0.8); MONO % 4.4 % (2.0-8.0); NEUTROPHILS # 6.6 10^3/uL (1.5-8.5); NEUTROPHILS % 88.6 % (36.0-66.0); PLATELET COUNT, AUTOMATED 144 10^3/uL (150-450)
[2025-01-18 05:27] LABS: CALCIUM LEVEL 8.2 MG/DL (8.3-10.6); CARBON DIOXIDE LEVEL 34.0 MMOL/L (20-31); CHLORIDE LEVEL 101.0 MMOL/L (98-107); CREATININE FOR GFR 1.63 MG/DL (0.55-1.30); GLOMERULAR FILTRATION RATE 33.3 (>39); POTASSIUM SERUM 3.9 MMOL/L (3.5-5.1); SODIUM LEVEL 146.0 MMOL/L (136-145)
[2025-01-18] MEDS: BUPRENORPHINE/NALOXONE 8-2MG SUBLINGUAL TABLET(SUBOXONE) SL SCH (09:41)
[2025-01-18] MEDS: FUROSEMIDE 100 MG/10 ML VIAL IV SCH (09:44)
[2025-01-19 04:00] VITALS: BP 218/86; TEMP 97.4; O2SAT 97
[2025-01-19 04:04] VITALS: BP 179/72; O2SAT 97
[2025-01-19 04:12] VITALS: BP 167/70; O2SAT 96
[2025-01-19 05:08] LABS: BASO # 0.0 10^3/uL (0.0-0.2); BASO % 0.2 % (0.0-1.0); EOS # 0.0 10^3/uL (0.0-0.5); EOS % 0.0 % (0.0-3.0); LYMPH # 0.4 10^3/uL (1.5-5.0); LYMPH % 4.4 % (24.0-44.0); MONO # 0.6 10^3/uL (0.0-0.8); MONO % 6.0 % (2.0-8.0); NEUTROPHILS # 8.5 10^3/uL (1.5-8.5); NEUTROPHILS % 88.8 % (36.0-66.0); PLATELET COUNT, AUTOMATED 141 10^3/uL (150-450)
[2025-01-19 05:42] LABS: CALCIUM LEVEL 8.4 MG/DL (8.3-10.6); CARBON DIOXIDE LEVEL 29.0 MMOL/L (20-31); CHLORIDE LEVEL 95.0 MMOL/L (98-107); CREATININE FOR GFR 1.45 MG/DL (0.55-1.30); GLOMERULAR FILTRATION RATE 38.3 (>39); POTASSIUM SERUM 4.6 MMOL/L (3.5-5.1); SODIUM LEVEL 134.0 MMOL/L (136-145)
[2025-01-19 05:54] VITALS: BP 127/60; O2SAT 98
[2025-01-19 07:43] VITALS: BP 146/63; TEMP 98.3; O2SAT 96
[2025-01-19 08:13] VITALS: BP 146/63
[2025-01-19] MEDS ORDERED: PRED20TA PO (14:53)
[2025-01-19] MEDS ORDERED: LEVO1TAB39 PO (14:53)
== END 2025-01-19 16:05 | disposition home health service (06) | DRG 189 ==
LOC: EDBD 09:50 → M ED 09:50 → M ED INP 14:30 → M PCU 16:15 → M ICU 01-15 03:31
PROVIDERS: ADMIT Internal Medicine; ATTEND Student in an Organized Health Care Education/Training Program
DX: J96.22 Acute and chronic respiratory failure with hypercapnia (principal); J15.69 Pneumonia due to other Gram-negative bacteria; I50.33 Acute on chronic diastolic (congestive) heart failure; J44.1 Chronic obstructive pulmonary disease with (acute) exacerbation; I13.0 Hypertensive heart and chronic kidney disease with heart failure and stage 1 through stage 4 chronic kidney disease, or unspecified chronic kidney disease; L03.115 Cellulitis of right lower limb; N18.4 Chronic kidney disease, stage 4 (severe); N17.9 Acute kidney failure, unspecified; J44.0 Chronic obstructive pulmonary disease with (acute) lower respiratory infection; J96.21 Acute and chronic respiratory failure with hypoxia; E11.22 Type 2 diabetes mellitus with diabetic chronic kidney disease; I27.20 Pulmonary hypertension, unspecified; E11.649 Type 2 diabetes mellitus with hypoglycemia without coma; E11.65 Type 2 diabetes mellitus with hyperglycemia; F17.200 Nicotine dependence, unspecified, uncomplicated; Z85.51 Personal history of malignant neoplasm of bladder; R33.9 Retention of urine, unspecified; Z79.899 Other long term (current) drug therapy; Z79.82 Long term (current) use of aspirin; Z79.4 Long term (current) use of insulin; F39 Unspecified mood [affective] disorder; G89.29 Other chronic pain

== ENCOUNTER → 2025-01-25 | Outpatient (REF) | payer MEDICARE, MEDICAID ==
[~2025-01-25] MED LIST changes: +DOCU100C16 PO; +LEVO1TAB39 PO
== END ==
LOC: M SMT 12:41
PROVIDERS: ATTEND Urology
DX: C67.9 Malignant neoplasm of bladder, unspecified (principal)

== ENCOUNTER → 2025-01-29 | Outpatient (CLI) | payer MEDICARE, MEDICAID | LOC: M PLAIMG 13:42 | PROVIDERS: ATTEND Internal Medicine Nephrology | DX: R10.9 Unspecified abdominal pain (principal); D75.829 Heparin-induced thrombocytopenia, unspecified ==

== ENCOUNTER 2025-05-02 15:44 | Inpatient (IN) | payer MEDICARE, MEDICAID ==
[~2025-05-02] VITALS: Ht 149.9 cm; Wt 94.3 kg
[~2025-05-02 15:44] MED LIST changes: -BACTDSTA PO; +SULF-7 PO; +SULF-8 PO; -SULF1TAB23 PO
[2025-05-02 17:04] LABS: BASO # 0.0 10^3/uL (0.0-0.2); BASO % 0.4 % (0.0-1.0); EOS # 0.2 10^3/uL (0.0-0.5); EOS % 1.7 % (0.0-3.0); LYMPH # 0.6 10^3/uL (1.5-5.0); LYMPH % 5.7 % (24.0-44.0); MONO # 0.7 10^3/uL (0.0-0.8); MONO % 6.0 % (2.0-8.0); NEUTROPHILS # 9.5 10^3/uL (1.5-8.5); NEUTROPHILS % 85.7 % (36.0-66.0); PLATELET COUNT, AUTOMATED 200 10^3/uL (150-450)
[2025-05-02 17:37] LABS: C REACTIVE PROTEIN QUANTITATIV 2.36 MG/DL (<1.0); CALCIUM LEVEL 8.7 MG/DL (8.3-10.6); CARBON DIOXIDE LEVEL 28.0 MMOL/L (20-31); CHLORIDE LEVEL 104.0 MMOL/L (98-107); CREATININE FOR GFR 1.98 MG/DL (0.55-1.30); GLOMERULAR FILTRATION RATE 26.2 (>39); POTASSIUM SERUM 5.6 MMOL/L (3.5-5.1); SODIUM LEVEL 138.0 MMOL/L (136-145)
[2025-05-02] MEDS ORDERED: NS (Normal Saline) 0.9% 1,000 ML IV SCH (18:15)
[2025-05-02] MEDS ORDERED: ACETAMINOPHEN 325 MG TAB PO PRN (18:50)
[2025-05-02] MEDS: NS (Normal Saline) 0.9% 1,000 ML IV SCH (18:50)
[2025-05-02] MEDS ORDERED: GLUCOSE 4 GM CHEW PO PRN (18:50)
[2025-05-02] MEDS ORDERED: MOM 30 ML SUSPENSION UDC PO PRN (18:50)
[2025-05-02] MEDS ORDERED: DEXTROSE 50% 50 ML SYRINGE IV PRN (18:50)
[2025-05-02] MEDS ORDERED: ONDANSETRON 4MG/2ML VIAL IV PRN (18:50)
[2025-05-02] MEDS ORDERED: GLUCAGON INJ 1 MG VIAL SC PRN (18:50)
[2025-05-02] MEDS: PATIROMER SORBITEX CALCIUM 8.4GM POWDER PACKET PO ONE (20:06)
[2025-05-02] MEDS: INSULIN LISPRO (NovoLOG) PER UNIT SC SCH (22:00)
[2025-05-02 22:04] VITALS: BP 128/63; TEMP 98.2; O2SAT 93
[2025-05-02] MEDS: cefTRIAXone SOD 2 GM in DEXTROSE 5% (D5W) ADV/MINI-BAG 50 ML IV SCH (22:04)
[2025-05-02] MEDS: DOXYCYCLINE HYCLATE 100 MG TABLET PO ONE (23:34)
[2025-05-02] MEDS: amLODIPine 10 MG TAB PO ONE (23:34)
[2025-05-03] MEDS: traZODone 50 MG TAB PO PRN (00:15)
[2025-05-03 05:48] VITALS: BP 134/68; TEMP 97.8; O2SAT 90
[2025-05-03 07:50] LABS: PLATELET COUNT, AUTOMATED 169 10^3/uL (150-450)
[2025-05-03] MEDS: INSULIN LISPRO (NovoLOG) PER UNIT SC SCH (08:03)
[2025-05-03 08:16] LABS: ALT/SGPT 11.0 U/L (7.0-40); AST/SGOT 20.0 U/L (<34); CALCIUM LEVEL 7.9 MG/DL (8.3-10.6); CARBON DIOXIDE LEVEL 26.0 MMOL/L (20-31); CHLORIDE LEVEL 106.0 MMOL/L (98-107); CREATININE FOR GFR 1.85 MG/DL (0.55-1.30); GLOMERULAR FILTRATION RATE 28.4 (>39); MAGNESIUM LEVEL 1.8 MG/DL (1.8-2.4); POTASSIUM SERUM 5.1 MMOL/L (3.5-5.1); SODIUM LEVEL 138.0 MMOL/L (136-145)
[2025-05-03] MEDS: ENOXAPARIN 30 MG/0.3 ML SYRINGE (J1650 PER 10MG) SC SCH (09:45)
[2025-05-03] MEDS ORDERED: SPIR50TA4 PO (10:24)
[2025-05-03] MEDS ORDERED: BUME2TAB3 PO (10:24)
[2025-05-03] MEDS ORDERED: MECL-86 PO (10:24)
[2025-05-03] MEDS ORDERED: HOME MED LIST COMPLETE! XX SCH (10:25)
[2025-05-03] MEDS: IPRATROPIUM 0.5 MG/ALBUTEROL 2.5 MG INH SOL UD 3 ML NEB PRN (10:35)
[2025-05-03 14:00] VITALS: BP 123/56; TEMP 99; O2SAT 93
[2025-05-03] MEDS: FLUZONE HIGH DOSE (65+) 0.5 ML SYRINGE (25-26) IM.IMMUN ONE (15:56)
[2025-05-03] MEDS: amLODIPine 10 MG TAB PO SCH (15:59)
[2025-05-03 20:33] VITALS: BP 128/59; TEMP 99; O2SAT 93
[2025-05-04 06:29] VITALS: BP 120/60; TEMP 98.4; O2SAT 89
[2025-05-04 09:04] VITALS: BP 120/60
[2025-05-04] MEDS ORDERED: CEFP200T PO (09:19)
[2025-05-04] MEDS ORDERED: LANTINJ4 SC (09:19)
[2025-05-04 10:12] LABS: PLATELET COUNT, AUTOMATED 161 10^3/uL (150-450)
[2025-05-04 11:33] LABS: CALCIUM LEVEL 8.8 MG/DL (8.3-10.6); CARBON DIOXIDE LEVEL 25.0 MMOL/L (20-31); CHLORIDE LEVEL 107.0 MMOL/L (98-107); CREATININE FOR GFR 1.67 MG/DL (0.55-1.30); GLOMERULAR FILTRATION RATE 32.2 (>39); POTASSIUM SERUM 5.0 MMOL/L (3.5-5.1); SODIUM LEVEL 139.0 MMOL/L (136-145)
== END 2025-05-04 13:53 | disposition home or self-care (01) | DRG 603 ==
LOC: M ED 18:24 → M ED INP 18:49 → M MS5PR 21:54
PROVIDERS: ADMIT Internal Medicine; ATTEND Internal Medicine Nephrology
DX: L03.115 Cellulitis of right lower limb (principal); N17.9 Acute kidney failure, unspecified; J96.11 Chronic respiratory failure with hypoxia; J96.12 Chronic respiratory failure with hypercapnia; I50.32 Chronic diastolic (congestive) heart failure; I13.0 Hypertensive heart and chronic kidney disease with heart failure and stage 1 through stage 4 chronic kidney disease, or unspecified chronic kidney disease; N18.4 Chronic kidney disease, stage 4 (severe); Z68.41 Body mass index [BMI] 40.0-44.9, adult; J44.9 Chronic obstructive pulmonary disease, unspecified; I27.20 Pulmonary hypertension, unspecified; E87.5 Hyperkalemia; E11.22 Type 2 diabetes mellitus with diabetic chronic kidney disease; E66.01 Morbid (severe) obesity due to excess calories; E03.9 Hypothyroidism, unspecified; E78.5 Hyperlipidemia, unspecified; R33.9 Retention of urine, unspecified; F17.200 Nicotine dependence, unspecified, uncomplicated; Z85.51 Personal history of malignant neoplasm of bladder; I83.018 Varicose veins of right lower extremity with ulcer other part of lower leg; Z79.899 Other long term (current) drug therapy; Z79.4 Long term (current) use of insulin; Z79.82 Long term (current) use of aspirin; Z79.52 Long term (current) use of systemic steroids; Z91.018 Allergy to other foods